=== PATIENT | male | born 2000 | race African-American/Black ===

== ENCOUNTER 2025-01-20 16:25 | Inpatient (IN) | payer OTHER, SELFPAY ==
--- NOTE | ~2025-01-20 | XR_ITS ---
CLINICAL HISTORY: reports constipation since 5 11 1 view abdomen Comparison: None Findings: Nonobstructive bowel gas pattern. No excessive colonic stool. No abnormal calcifications. No acute fractures. IMPRESSION: Nonobstructive bowel gas pattern. This document has been electronically signed by: Regi Bañuelos MD on 02/11/2025 18:57:07
[2025-01-20 16:36] VITALS: PULSE 115; O2SAT 99
[2025-01-20 16:37] VITALS: BMI 38.9
[2025-01-20 17:32] LABS: MANUAL DIFF FLAG NO
--- NOTE | 2025-01-20 17:34 | PC.NURSE ---
med rec: per pt he has been compliant with his medication. he states that he took his medications last night. pt states that the recent DC documentation from [facility] is his up-to-date med list. meds checked with pharmacy fill records and [facility] DC paperwork
[2025-01-20 17:40] LABS: Basophils Percent Auto 0.3 % (0-2); Eosinophils Percent Auto 0.1 % (0-4); Hematocrit 47.6 % (42.0-52.0); Hemoglobin 16.2 g/dl (14.0-18.0); Imm Gran Abs Auto 0.02 X10*3/uL (0.00-0.03); Imm Gran Pct Auto 0.3 % (0.0-0.4); Lymphocytes Absolute Auto 1.9 X10*3/uL (1.2-4.9); Lymphocytes Percent Auto 26.4 % (20-40); Mean Corpuscular Hemoglobin 30.4 pg (27.0-33.0); Mean Corpuscular Volume 89.3 fL (80.0-98.0); Mean Platelet Volume 11.5 fL (9.4-12.4); Monocytes Absolute Auto 0.4 X10*3/uL (0.1-1.2); Monocytes Percent Auto 6.1 % (2-11); Neutrophils Absolute Auto 4.8 x10*3/uL (2.0-8.3); Neutrophils Percent Auto 66.8 % (45-73); Platelet Count 213 X10*3/uL (160-400); Red Blood Count 5.33 X10*6/uL (4.60-5.80); White Blood Count 7.2 X10*3/uL (4.8-10.8)
--- NOTE | 2025-01-20 17:47 | ED_ITS ---
HPI - Psych General Chief Complaint: Psychiatric Symptoms Stated Complaint: sectioned, schizophrenia, tried to jump out of car Time Seen by Provider: 01/20/25 16:48 Source: patient and EMS Mode of arrival: EMS Limitations: no limitations History of Present Illness ED Provider: ANIA CAMARA PA-C HPI Narrative: 24-year-old male with pmhx significant for schizophrenia presents to the ED today via EMS from home on a section 12. Per patient, he is insure why he was brought to the ED today. He states he currently lives with his parents. States they think I'm crazy . He denies SI/HI. Denies AH/VH/TH. He reports compliance with all home medications. He denies any physical complaints at this time. According to section, patient attempted to jump out of a moving vehicle yesterday. Parents state patient has been paranoid, delusional. It appears he was just discharged from a mental health facility approximately 1 week ago. Related Data Home Medications ?Medication ?Instructions ?Recorded ?Confirmed aripiprazole 30 mg tablet 30 mg PO BEDTIME psychosis 01/20/25 01/20/25 clonidine HCl 0.2 mg tablet 0.2 mg PO BEDTIME 01/20/25 01/20/25 haloperidol 10 mg tablet 10 mg PO BEDTIME 01/20/25 01/20/25 sumatriptan succinate 100 mg tablet 100 mg PO DAILY PRN migraine 01/20/25 01/20/25 topiramate 200 mg tablet 200 mg PO BEDTIME 01/20/25 01/20/25 trazodone 50 mg tablet 50 mg PO BEDTIME PRN insomnia 01/20/25 01/20/25 Allergies Allergy/AdvReac Type Severity Reaction Status Date / Time paliperidone [From Invega] Allergy Itching Verified 01/20/25 16:47 Review of Systems 2 Review of Systems: Yes all other systems are reviewed and are negative PMFSH Past Medical History Attestation statement: The following information was validated with the patient. Source: old records reviewed and nursing notes reviewed Social History Social History Household Members: Family Housing: Apartment Do you presently have visiting nurse or other home services: No Patient Tobacco Use Status: Never used Tobacco Smoked in Last 30 Days: No e-Cigarette/Vaping Use: Never Used Patient Interested in Nicotine Replacement: No Patient Given Instructions on How to Stop Smoking: No Second Hand Smoke Exposure: No Use of substances other than those prescribed or required for medical reasons: No Currently Displaying Signs/Symptoms of Drug Intoxication Withdrawal: No Have you been hit, kicked, punched, or otherwise hurt by someone within the past year? If so, by whom?: No Do you feel safe in your current relationship?: No Current Relationship Is there a partner from a previous relationship who is making you feel unsafe now?: No Are you made to feel afraid or neglected: No Tenriism Healthcare Practices: Nondenominational Advance Directives: No Advance Directives Information Provided: No Do you have thoughts of harming others: None Do you have a plan to hurt others: No Plan Recently lost weight without trying: No How much weight loss: Not applicable Eating poorly because of decreased appetite: No Nutrition screen score: 0 Nutrition Risks: No Nutritional Risk Poor oral hygiene: No Physical Exam 2 Vital Signs: Vital Signs: Last Vital Signs Temp 98.3 F 01/22/25 08:00 Pulse 90 01/22/25 08:00 Resp 18 01/22/25 08:00 BP 134/66 01/22/25 08:00 Pulse Ox 98 01/22/25 08:00 O2 Del Method Room Air 01/22/25 08:00 BMI result Body Mass Index 38.9 General: well appearing, in no acute distress. Skin: Warm, dry, intact. No rashes or lesions. Head: Normocephalic, atraumatic. EENT: Hearing is intact b/l. Conjunctiva clear. PERRLA. EOM intact. Moist mucous membranes.? Neck: Supple without LAD Cardiac: Chest wall symmetric. RRR Lungs: Normal respiratory effort without accessory muscle use. CTA bilaterally Abdomen: Soft, non-tender, non-distended. No rebound tenderness or guarding Back: No midline spinous or paraspinal tenderness. No step off deformity. Ext: Upper and lower extremities atraumatic, without tenderness, deformity, swelling or erythema Neuro: AOx3. Normal speech. CN 2-12 grossly intact. Ambulating with steady gait. Course Course Course Narrative: 1838 -- I was called to behavioral pod as patient was noted to be agitated and combative. On my arrival, patient calm. States he is frustrated as he was not given any pants that fit him. Requesting larger pants. He is not combative. He is agreeable to blood work. CBC without leukocytosis or left shift. No anemia. H&H stable. Chemistry without acute electrolyte abnormality requiring intervention. No GRECIA. Liver function WNL. Lipase WNL. Salicylates, acetaminophen and ethanol undetectable. Urinalysis and UDS pending. CARE consult pending. Reevaluation(s) Reevaluation #1: Time: 07:21 Date: 01/21/25 Provider: Jen Venegas DO Patient in physician observation for psychiatric evaluation.? No acute events reported overnight. No current complaints. VS stable.? pending CARE team evaluation. Will continue to monitor. Reevaluation #2: Time: 18:44 Date: 01/21/25 Provider: Jen Venegas DO Physician observation ended at 1844. Patient to be admitted as inpatient to psychiatry. Medications Administered Generic Name Dose Route Start Last Admin Trade Name Freq PRN Reason Stop Dose Admin Aripiprazole 30 mg 01/20/25 21:00 01/21/25 20:16 Aripiprazole 30 Mg Tablet PO 30 mg BEDTIME EMILY Administration Clonidine HCl 0.2 mg 01/20/25 21:00 01/21/25 20:16 Clonidine Hcl 0.2 Mg Tablet PO 0.2 mg BEDTIME EMILY Administration Protocol Haloperidol 10 mg 01/22/25 15:00 01/22/25 14:20 Haloperidol 5 Mg Tablet PO 10 mg TID EMILY Administration Hydroxyzine HCl 25 mg 01/21/25 17:56 01/22/25 12:02 Hydroxyzine Hcl 25 Mg Tablet PO 25 mg Q6H PRN Administration mild anxiety Topiramate 200 mg 01/20/25 21:00 01/21/25 20:16 Topiramate 100 Mg Tablet PO 200 mg BEDTIME EMILY Administration Trazodone HCl 50 mg 01/20/25 17:44 01/20/25 21:36 Trazodone Hcl 50 Mg Tablet PO 50 mg BEDTIME PRN Administration insomnia Discontinued Medications Generic Name Dose Route Start Last Admin Trade Name Freq PRN Reason Stop Dose Admin Haloperidol 10 mg 01/20/25 21:00 01/21/25 20:16 Haloperidol 5 Mg Tablet PO 10 mg BEDTIME EMILY Administration Medical Decision Making Medical Decision Making MDM Narrative: 24-year-old male with pmhx significant for schizophrenia presents to the ED today via EMS from home on a section 12. vital signs stable. Differential diagnosis includes anemia, electrolyte abnormality, mood disorder, anxiety, depression, SI, polysubstance abuse Presentation not consistent with acute organic causes to include delirium, dementia or drug induced disorders (acute ingestions or withdrawal; no evidence of toxidrome).? Will consult care team to evaluate the patient. Will also obtain labs for medical clearance. Plan: labs, EKG, ASA/APAP levels, ETOH level, UDS, care team consultation, reassessment Differential Diagnosis Differential Diagnoses: The differential diagnosis associated with the presentation includes As above Admission/Observation Not indicated Lab Data MDM Lab Attestation statement: I reviewed the patient's lab results. As above 01/20/25 17:28 01/22/25 07:39 Labs: Lab Results 01/20/25 01/21/25 Range/Units 17:28 11:16 WBC 7.2 (4.8-10.8) X10*3/uL RBC 5.33 (4.60-5.80) X10*6/uL Hgb 16.2 (14.0-18.0) g/dl Hct 47.6 (42.0-52.0) % MCV 89.3 (80.0-98.0) fL MCH 30.4 (27.0-33.0) pg MCHC 34.0 (31.0-36.0) g/dl RDW 14.0 (11.0-16.0) % Plt Count 213 (160-400) X10*3/uL MPV 11.5 (9.4-12.4) fL Immature Gran % (Auto) 0.3 (0.0-0.4) % Neut % (Auto) 66.8 (45-73) % Lymph % (Auto) 26.4 (20-40) % [place] % (Auto) 6.1 (2-11) % Eos % (Auto) 0.1 (0-4) % Baso % (Auto) 0.3 (0-2) % Lymph # (Auto) 1.9 (1.2-4.9) X10*3/uL [place] # (Auto) 0.4 (0.1-1.2) X10*3/uL Eos # (Auto) 0.0 (0.0-0.4) X10*3/uL Baso # (Auto) 0.0 (0.0-0.2) X10*3/uL Abs Immat Gran (auto) 0.02 (0.00-0.03) X10*3/uL Absolute Neuts (auto) 4.8 (2.0-8.3) x10*3/uL Absolute Nucleated RBC 0.000 (0.0-0.012) X10*3/uL Nucleated RBC % (auto) 0.0 (0.0-0.2) /100WBC Sodium 140 (135-145) mmol/L Potassium 4.0 (3.3-5.1) mmol/L Chloride 113 H (96-108) mmol/L Carbon Dioxide 19 L (22-29) mmol/L Anion Gap 12 (12-20) BUN 10 (9-16) mg/dL Creatinine 1.03 (0.5-1.4) mg/dL Estim Creat Clear Calc 170.7 Estimated GFR > 60 Random Glucose 100 (60-115) mg/dL Calcium 9.5 (8.4-10.2) mg/dL Magnesium 1.9 (1.6-2.6) mg/dL Total Bilirubin 0.3 (0.0-1.0) mg/dL AST 18 (5-37) U/L ALT 44 H (0-40) U/L Alkaline Phosphatase 86 (39-117) U/L Total Protein 7.5 (6.5-8.0) g/dL Albumin 4.5 (3.5-5.0) g/dL Lipase 28 (8-78) U/L Urine Color Yellow Urine Appearance Clear Urine pH 6.0 (5.0-9.0) Ur Specific [place] 1.015 (1.005-1.025) Urine Protein Negative (Neg-Trace) mg/dL Urine Glucose (UA) Negative (Negative) mg/dL Urine Ketones Negative (Negative) mg/dL Urine Blood Negative (Negative) Urine Nitrite Negative (Negative) Ur Leukocyte Esterase Negative (Negative) Salicylates < 5.0 L (15-30) mg/dL Urine Opiates Screen Not Detected (Not Detect) Ur Buprenorphine Scrn Not Detected (Not Detect) ng/mL Ur Oxycodone Screen Not Detected (Not Detect) ng/mL Urine Methadone Screen Not Detected (Not Detect) ng/mL Urine Fentanyl Screen Not Detected (Not Detect) Acetaminophen < 3 (<30) mcg/mL Ur Barbiturates Screen Not Detected (Not Detect) Ur Phencyclidine Scrn Not Detected (Not Detect) Ur Amphetamines Screen Not Detected (Not Detect) U Benzodiazepines Scrn Not Detected (Not Detect) Urine Cocaine Screen Not Detected (Not Detect) U Marijuana (THC) Screen Not Detected (Not Detect) Ethyl Alcohol < 10 mg/dL Independent Historian Clinical information obtained from an independent historian. History obtained from or confirmed by: EMS Social Determinants Patient?s care significantly limited by Social Determinants of Health including: Other Social Determinant of Health Critical Care Time Critical Care Time Critical Care Time: No Discharge Plan Discharge Clinical Impression: Acute psychosis Patient Disposition: Admitted As Inpatient Discharge Date/Time: 01/21/25 18:44
[2025-01-20 17:52] LABS: Acetaminophen LAB < 3 mcg/mL (<30); Salicylate < 5.0 mg/dL (15-30)
[2025-01-20 17:59] LABS: Alanine Aminotransferase 44 U/L (0-40); Albumin Level 4.5 g/dL (3.5-5.0); Alkaline Phosphatase 86 U/L (39-117); Anion Gap 12 (12-20); Aspartate Amino Transferase 18 U/L (5-37); Bilirubin Total 0.3 mg/dL (0.0-1.0); Blood Urea Nitrogen 10 mg/dL (9-16); Calcium 9.5 mg/dL (8.4-10.2); Carbon Dioxide 19 mmol/L (22-29); Chloride 113 mmol/L (96-108); Creatinine Clr Calc Pharmacy 170.7; Estimated Glomerular Filt Rate > 60; Ethanol < 10 mg/dL; Glucose Random 100 mg/dL (60-115); Lipase 28 U/L (8-78); Magnesium 1.9 mg/dL (1.6-2.6); Sodium 140 mmol/L (135-145); Total Protein 7.5 g/dL (6.5-8.0)
--- NOTE | 2025-01-20 19:26 | PC.NURSE ---
patient appears to remain at rest able to let wants and needs be known t/w provided him with some ice water, advised him regarding access to spiritual care and asked him when hed like his medications delivered, very pleasant.
[2025-01-20 19:43] VITALS: BP 121/57; PULSE 65; RESP 16; TEMP 36.4; O2SAT 100
--- NOTE | 2025-01-20 21:05 | MHC.CARE ---
Patient was evaluated in the community by Dolly and found appropriate for IPLOC. [facility] reported that they will send over his evaluation once completed and a copy will be placed in his chart at that time. Information will be passed to RN in pod and MD at this time.
[2025-01-20 21:35] VITALS: BP 121/57
[2025-01-20] MEDS: cloNIDine HCL 0.2 MG TABLET PO (21:35)
[2025-01-20] MEDS: ARIPiprazole 30 MG TABLET PO (21:35)
[2025-01-20] MEDS: Topiramate 100 MG TABLET 200 MG PO (21:36)
[2025-01-20] MEDS: HaloperidoL 5 MG TABLET 10 MG PO (21:36)
[2025-01-20] MEDS: traZODone HCL 50 MG TABLET PO (21:36)
--- NOTE | 2025-01-21 | ECG_ITS ---
Test Reason : R/O PROLONGED QT Blood Pressure : */* mmHG Vent. Rate : 59 BPM Atrial Rate : 59 BPM P-R Int : 208 ms QRS Dur : 100 ms QT Int : 418 ms P-R-T Axes : 37 30 15 degrees QTcB Int : 413 ms Sinus bradycardia Otherwise normal ECG No previous ECGs available Referred By: Paige Gonzales Electronically Signed By: ISA OATES
--- NOTE | 2025-01-21 08:37 | MHC.EDTECH ---
Patient agreeable to providing urine sample. This tech missed patient as he was going to the restroom, and did not provide a urine cup. Patient aware to inform staff next time he needs to use the bathroom.
--- NOTE | 2025-01-21 09:37 | PC.NURSE ---
Per patient okay to give updates to his mother, mother called stating patient is in the proces of being placed on injectable abilify and his MD will call to discuss placing patient on the injectable
[2025-01-21 10:42] VITALS: BP 110/61; PULSE 58; RESP 16; TEMP 36.2; O2SAT 99
--- NOTE | 2025-01-21 11:17 | MHC.EDTECH ---
This tech responded to patient yelling at bathroom door for assistance. Patient in hallway of bathrooms with urine cup. This tech asked patient to bring it around to the nurses station. Patient handed this tech urine up and stated you couldn't fucking help me. This tech thanked patient for urine and did not acknowledge patient swearing. Patient returned to room.
--- NOTE | 2025-01-21 11:25 | PC.NURSE ---
Patient standing in doorway of room yelling that he liked previous staff better and that staff is here to help him. Dayna stating that she asked patient to bring his urine sample out of the bathroom and he became upset
[2025-01-21 11:41] LABS: Amphetamine Screen Urine Not Detected (Not Detect); Barbiturates, Urine Not Detected (Not Detect); Benzodiazepines Screen Urine Not Detected (Not Detect); Buprenorphine Scr Not Detected (Not Detect); Cannabinoid Screen Urine Not Detected (Not Detect); Cocaine Screen Urine Not Detected (Not Detect); Fentanyl, urine Not Detected (Not Detect); Methadone Screen, Urine Not Detected (Not Detect); Opiate Screen Urine Not Detected (Not Detect); Oxycodone Screen Urine Not Detected (Not Detect); Phencyclidine Screen Urine Not Detected (Not Detect)
[2025-01-21 11:45] LABS: Appearance Urine Clear; Color Urine Yellow; Glucose Urine UA Negative (Negative); Leukocyte Esterase Urine Negative (Negative); Nitrite Urine Negative (Negative); Specific Gravity - Urine 1.015 (1.005-1.025); Urine Blood Negative (Negative); Urine Ketones Negative (Negative); Urine Protein Negative (Neg-Trace)
--- NOTE | 2025-01-21 18:17 | PC.NURSE ---
Report given to m5
--- NOTE | 2025-01-21 18:44 | PC.NURSE ---
verbal report given to RN on M5
[2025-01-21 19:09] VITALS: BMI 42.0
[2025-01-21 19:11] VITALS: BP 156/72; PULSE 89; TEMP 36.8; O2SAT 99
[2025-01-21 20:16] VITALS: BP 156/72
[2025-01-21] MEDS: HaloperidoL 5 MG TABLET 10 MG PO (20:16)
[2025-01-21] MEDS: ARIPiprazole 30 MG TABLET PO (20:16)
[2025-01-21] MEDS: cloNIDine HCL 0.2 MG TABLET PO (20:16)
[2025-01-21] MEDS: Topiramate 100 MG TABLET 200 MG PO (20:16)
--- NOTE | 2025-01-22 06:19 | PC.ADMIT ---
Porter Starnge is a 24years old male with pmhx. significant for schizophrenia. Pt presented to ED via EMS from home on sec. 12 but signed CV upon arrival to the unit. According to section, pt attempted to jump out of moving vehicle yesterday. Parents state pt has been paranoid and delusional. it appears he was just discharged from a mental health facility aprox. 1 week ago. pt arrived on the unit with admitting diagnosis for Psychosis. pt is alert and oriented x3. pt is calm, pleasant, easily engages, complaint with all admission process, denied anxiety and depression, also denied SI/HI/AVH, contracted for safety on the unit, ambulates independently and attends to own ADL's. pt denied pain and has been medication compliant. pt's belongings inventoried/secured. pt upset when told he could not use his phone on the unit, stating I need mine because I use it for meditation and also for [employer]ybeterian purposes . Pt was advised if the need be, the unit have iPads available that he can use once approved by staff. pt has been in behavioral control all night, no issues thus far, pt on 15mins safety check.
[2025-01-22 08:00] VITALS: BP 134/66; PULSE 90; RESP 18; TEMP 36.8; O2SAT 98
[2025-01-22 08:23] LABS: Alanine Aminotransferase 44 U/L (0-40); Albumin Level 4.6 g/dL (3.5-5.0); Alkaline Phosphatase 91 U/L (39-117); Anion Gap 12 (12-20); Aspartate Amino Transferase 26 U/L (5-37); Bilirubin Total 0.9 mg/dL (0.0-1.0); Blood Urea Nitrogen 13 mg/dL (9-16); Calcium 9.7 mg/dL (8.4-10.2); Carbon Dioxide 20 mmol/L (22-29); Chloride 113 mmol/L (96-108); Cholesterol 164 mg/dL (<200); Creatinine Clr Calc Pharmacy 162.1; Estimated Glomerular Filt Rate > 60; Glucose Random 90 mg/dL (60-115); HDL Cholesterol 46 mg/dL (>40); LDL Cholesterol Calculated 100 mg/dL (<100); Potassium 3.9 mmol/L (3.3-5.1); Sodium 141 mmol/L (135-145); Total Protein 7.6 g/dL (6.5-8.0); Triglycerides 90 mg/dL (<150)
[2025-01-22 08:44] LABS: Estimated Average Glucose 100 mg/dL; Hemoglobin A1C 137.4562 umol/L; Hemoglobin A1c % 5.1 % (<6.0); Total Hemoglobin (HGBA1C) 4299.3797 umol/L
--- NOTE | 2025-01-22 09:33 | P.HPPS_ITS ---
HPI Date of Service: 01/22/25 Chief Complaint: Pyschosis Sources of Information: patient interviewed, chart reviewed and crisis/core team assessment reviewed HPI Subjective Notes: Nguyen Warning, Conditional Voluntary and 3 Day Narrative: Patient is a 24-year-old male with history of schizophrenia, off Invega Sustenna for about 3 months who presents with i.e. compensated psychotic symptoms and aggression. Patient is a poor historian. He initially says he does not know why his mother wanted him to come to the hospital. He quickly became angry at creative services writer, starting to yell at creative services writer, intense and starting to posture, including as creative services writer walks away down the goodman I wanted different doctor... I do not trust you and that that creative services writer is a shit doctor. Busgirl needed to terminate conversation and get away from patient for safety. Earlier he got angry at a nurse and also swore at her. Mother provided some collateral to staff. Apparently patient has been stable since his hospitalization when he was 16 years old, benefitting from Invega Sustenna; he attended [employer] and graduated. It is not clear if Invega Sustenna stopped working or he refused to take it but he has been decompensating over the past 3 months and has had to other recent hospitalizations. Mother says that he is scaring her and the neighbors;,paranoid and delusional frequently self dialoguing. Prior to coming to the hospital he tried to jump out of moving car. Past Psychiatric History: First hospitalized around 16 years old and benefited from Invega Sustenna for the next 7 years, not requiring any hospitalizations Recently 2 psychiatric hospitalizations Medical Evaluation Reviewed: Yes [facility] Medical History (Updated 01/23/25 @ 17:25 by Dion Meléndez MD) Schizophrenia Family History: Deferred Social History: Lives at home with his family, mother On Invega Sustenna, graduated from [employer]; functional and integrated in the community Substance History: Denies Trauma History: Deferred Diagnostics Vital Signs (24Hr): Vital Signs - 24 hr 01/21/25 10:42 01/21/25 19:11 01/21/25 20:16 Temperature 97.2 F 98.2 F Pulse Rate 58 89 Respiratory Rate 16 Blood Pressure 110/61 156/72 H 156/72 H Pulse Oximetry 99 99 Oxygen Delivery Method Room Air Room Air 01/22/25 08:00 Temperature 98.3 F Pulse Rate 90 Respiratory Rate 18 Blood Pressure 134/66 Pulse Oximetry 98 Oxygen Delivery Method Room Air BMI result Body Mass Index 42.0 Labs 01/20/25 17:28 01/22/25 07:39 Labs: Laboratory Results - last 48 hr 01/20/25 01/21/25 01/22/25 17:28 11:16 07:39 WBC 7.2 RBC 5.33 Hgb 16.2 Hct 47.6 MCV 89.3 MCH 30.4 MCHC 34.0 RDW 14.0 Plt Count 213 MPV 11.5 Immature Gran % (Auto) 0.3 Neut % (Auto) 66.8 Lymph % (Auto) 26.4 [place] % (Auto) 6.1 Eos % (Auto) 0.1 Baso % (Auto) 0.3 Lymph # (Auto) 1.9 [place] # (Auto) 0.4 Eos # (Auto) 0.0 Baso # (Auto) 0.0 Abs Immat Gran (auto) 0.02 Absolute Neuts (auto) 4.8 Absolute Nucleated RBC 0.000 Nucleated RBC % (auto) 0.0 Sodium 140 141 Potassium 4.0 3.9 Chloride 113 H 113 H Carbon Dioxide 19 L 20 L Anion Gap 12 12 BUN 10 13 Creatinine 1.03 1.13 Estim Creat Clear Calc 170.7 162.1 Estimated GFR > 60 > 60 Random Glucose 100 90 Estimat Average Glucose 100 Hemoglobin A1c % 5.1 Calcium 9.5 9.7 Magnesium 1.9 Total Bilirubin 0.3 0.9 AST 18 26 ALT 44 H 44 H Alkaline Phosphatase 86 91 Total Protein 7.5 7.6 Albumin 4.5 4.6 Triglycerides 90 Cholesterol 164 LDL Cholesterol, Calc 100 H HDL Cholesterol 46 Lipase 28 Urine Color Yellow Urine Appearance Clear Urine pH 6.0 Ur Specific Chad[place] 1.015 Urine Protein Negative Urine Glucose (UA) Negative Urine Ketones Negative Urine Blood Negative Urine Nitrite Negative Ur Leukocyte Esterase Negative Salicylates < 5.0 L Urine Opiates Screen Not Detected Ur Buprenorphine Scrn Not Detected Ur Oxycodone Screen Not Detected Urine Methadone Screen Not Detected Urine Fentanyl Screen Not Detected Acetaminophen < 3 Ur Barbiturates Screen Not Detected Ur Phencyclidine Scrn Not Detected Ur Amphetamines Screen Not Detected U Benzodiazepines Scrn Not Detected Urine Cocaine Screen Not Detected U Marijuana (THC) Screen Not Detected Ethyl Alcohol < 10 Meds/Allergies Meds Home Medications ?Medication ?Instructions ?Recorded ?Confirmed ?Type aripiprazole 30 mg tablet 30 mg PO BEDTIME psychosis 01/20/25 01/20/25 History clonidine HCl 0.2 mg tablet 0.2 mg PO BEDTIME 01/20/25 01/20/25 History haloperidol 10 mg tablet 10 mg PO BEDTIME 01/20/25 01/20/25 History sumatriptan succinate 100 mg tablet 100 mg PO DAILY PRN migraine 01/20/25 01/20/25 History topiramate 200 mg tablet 200 mg PO BEDTIME 01/20/25 01/20/25 History trazodone 50 mg tablet 50 mg PO BEDTIME PRN insomnia 01/20/25 01/20/25 History Allergies Allergies Allergy/AdvReac Type Severity Reaction Status Date / Time paliperidone [From Invega] Allergy Itching Verified 01/20/25 16:47 Mental Status Exam Mental Status Exam Narrative: Pt is alert and oriented; behavior is can sometimes be friendly but quickly gets irritable, agitated and threatening; patient is not in distress; dressed in casual attire with adequate hygiene; mood is described as good affect intense; eye contact intense; Speech is normal rate, volume and prosody and not pressured; psychomotor agitation present; thought process is goal directed; Thought content is on paranoid ideations; ; denies any SI/HI. Denies AVH however patient appears to be internally preoccupied. Patients insight and judgment impaired. Assessment & Plan Assessment & Plan (1) Schizophrenia: Status: Acute Code(s): F20.9 - Schizophrenia, unspecified Plan Patient is a 24-year-old male with history of schizophrenia, off Invega Sustenna for about 3 months who presents with i.e. compensated psychotic symptoms and aggression. Patient is a poor historian. He initially says he does not know why his mother wanted him to come to the hospital. He quickly became angry at creative services writer, starting to yell at creative services writer, intense and starting to posture, including as creative services writer walks away down the goodman I wanted different doctor... I do not trust you and that that creative services writer is a shit doctor. Busgirl needed to terminate conversation and get away from patient for safety. Earlier he got angry at a nurse and also swore at her. Mother provided some collateral to staff. Apparently patient has been stable since his hospitalization when he was 16 years old, benefitting from Invega Sustenna; he attended [employer] and graduated. It is not clear if Lita Ponce stopped working or he refused to take it but he has been decompensating over the past 3 months and has had to other recent hospitalizations. Mother says that he is scaring her and the neighbors;,paranoid and delusional frequently self dialoguing. Prior to coming to the hospital he tried to jump out of moving car. Formulation/clinical reasoning: Decompensated schizophrenia; either patient stopped taking Lita Ponce or it stopped working. At the mentioned of the word Invega patient became extremely angry. However he was started on other medications (at other admission? ) which she is amenable to taking, including Abilify and Haldol so will continue these; creative services writer will increase Haldol to 10 mg t.i.d., up from b.i.d.. -will give patient single room for safety of peers, since patient easily provoked Plan: CV Q 15 minute checks -will give patient single room since easily provoked Continue?Abilify 30 mg q.h.s. Continue Clonidine 0.2 mg q.h.s. Continue Topamax 200 mg q.h.s. Increase to Haldol 10 mg t.i.d., up from b.i.d. Patient educated on: diagnosis and medication risk/benefits Informed Consent: understands, does not understand and further education needed Reason for continued inpatient stay Substantial Risk for: inability to function Statement Statement: I have reviewed the history and physical and performed a pertinent examination on my patient. No changes have occurred unless specified. If the History and Physical was not performed prior to admission, the Hospitalist's service will be consulted for completing the admission physical. Time Spent With Patient Time: Total time managing care of this patient today ____ minutes.
[2025-01-22] MEDS: hydrOXYzine HCL 25 MG TABLET PO (12:02)
[2025-01-22] MEDS: HaloperidoL 5 MG TABLET 10 MG PO ×3 (12:04→20:29)
[2025-01-22 19:56] VITALS: BP 148/72; PULSE 97; RESP 15; TEMP 36.6; O2SAT 99
[2025-01-22] MEDS: ARIPiprazole 30 MG TABLET PO (20:29)
[2025-01-22] MEDS: cloNIDine HCL 0.2 MG TABLET PO (20:29)
[2025-01-22] MEDS: traZODone HCL 50 MG TABLET PO (20:29)
[2025-01-22] MEDS: Topiramate 100 MG TABLET 200 MG PO (20:29)
[2025-01-23] MEDS: HaloperidoL 5 MG TABLET 10 MG PO ×3 (08:26→20:50)
[2025-01-23 08:30] VITALS: BP 105/57; PULSE 70; RESP 18; TEMP 36.5; O2SAT 100
--- NOTE | 2025-01-23 17:29 | HO.PSYCHPN ---
Subjective Subjective Date of Service: 01/23/25 Reason For Visit: Pyschosis Interim History: Met with patient; discussed with team Patient seems to be more calm today. Guarded on approach and little to say to web content writer other than that he is doing all right and has no complaints or requests and says nothing is on his mind. Television Announcer left it there so as not to accidentally provoke. Patient taking prescribed medication. To nursing staff patient said I was tormented yesterday... Mental Status Exam Mental Status Exam Narrative: Pt is alert and oriented; behavior is more calm; so far no threatening behaviors; patient is not in distress; dressed in casual attire with adequate hygiene; mood is described as all right affect a little more calm; eye contact less intense; Speech is normal rate, volume and prosody and not pressured; seems to be less psychomotor agitation; thought process is goal directed; Thought content is guarded; denies any SI/HI. Denies AVH however patient appears to be internally preoccupied. Patients insight and judgment impaired. Diagnostics Vital Signs (24Hr): Vital Signs - 24 hr 01/22/25 19:56 01/23/25 08:30 Temperature 98 F 97.7 F Pulse Rate 97 70 Respiratory Rate 15 18 Blood Pressure 148/72 H 105/57 L Pulse Oximetry 99 100 Oxygen Delivery Method Room Air BMI result Body Mass Index 42.0 Labs 01/20/25 17:28 01/22/25 07:39 Labs: Laboratory Results - last 48 hr 01/22/25 07:39 Sodium 141 Potassium 3.9 Chloride 113 H Carbon Dioxide 20 L Anion Gap 12 BUN 13 Creatinine 1.13 Estim Creat Clear Calc 162.1 Estimated GFR > 60 Random Glucose 90 Estimat Average Glucose 100 Hemoglobin A1c % 5.1 Calcium 9.7 Total Bilirubin 0.9 AST 26 ALT 44 H Alkaline Phosphatase 91 Total Protein 7.6 Albumin 4.6 Triglycerides 90 Cholesterol 164 LDL Cholesterol, Calc 100 H HDL Cholesterol 46 Medications Medications Current Medications Acetaminophen (Acetaminophen 325 Mg Tablet) 650 mg PO Q6H PRN PRN Reason: Headache/Pain, Scale 1-10 Al Hydroxide/Mg Hydroxide (Magnesium Hydrox/Alum Hydrox 30 Ml Oral.Susp) 30 ml PO Q6H PRN PRN Reason: Heartburn/Nausea Aripiprazole (Aripiprazole 30 Mg Tablet) 30 mg PO BEDTIME EMILY Last Admin: 01/22/25 20:29 Dose: 30 mg Clonidine HCl (Clonidine Hcl 0.2 Mg Tablet) 0.2 mg PO BEDTIME EMILY; Protocol Last Admin: 01/22/25 20: Dose: 0.2 mg Haloperidol (Haloperidol 5 Mg Tablet) 10 mg PO TID EMILY Last Admin: 01/23/25 14:08 Dose: 10 mg Hydroxyzine HCl (Hydroxyzine Hcl 25 Mg Tablet) 25 mg PO Q6H PRN PRN Reason: mild anxiety Last Admin: 01/22/25 12:02 Dose: 25 mg Magnesium Hydroxide (Milk Of Magnesia 30 Ml Oral.Susp) 30 ml PO DAILY PRN PRN Reason: Constipation Nicotine (Nicotine 21 Mg Patch.Td24) 21 mg TRANSDERMA DAILY PRN PRN Reason: smoking cessation Olanzapine (Olanzapine 10 Mg Tablet) 10 mg PO TID PRN PRN Reason: agitation Sumatriptan Succinate (Sumatriptan Succinate 100 Mg Tablet) 100 mg PO DAILY PRN PRN Reason: migraine Topiramate (Topiramate 100 Mg Tablet) 200 mg PO BEDTIME EMILY Last Admin: 01/22/25 20:29 Dose: 200 mg Trazodone HCl (Trazodone Hcl 50 Mg Tablet) 50 mg PO BEDTIME PRN PRN Reason: insomnia Last Admin: 01/22/25 20:29 Dose: 50 mg Trazodone HCl (Trazodone Hcl 50 Mg Tablet) 50 mg PO BEDTIME MRX1 PRN PRN Reason: Insomnia Allergies Allergies Allergy/AdvReac Type Severity Reaction Status Date / Time paliperidone [From Invega] Allergy Itching Verified 01/20/25 16:47 Assessment & Plan Assessment & Plan (1) Schizophrenia: Status: Acute Code(s): F20.9 - Schizophrenia, unspecified Plan Patient is a 24-year-old male with history of schizophrenia, off Invega Sustenna for about 3 months who presents with i.e. compensated psychotic symptoms and aggression. Patient is a poor historian. He initially says he does not know why his mother wanted him to come to the hospital. He quickly became angry at web content writer, starting to yell at web content writer, intense and starting to posture, including as web content writer walks away down the goodman I wanted different doctor... I do not trust you and that that web content writer is a shit doctor. Television Announcer needed to terminate conversation and get away from patient for safety. Earlier he got angry at a nurse and also swore at her. Mother provided some collateral to staff. Apparently patient has been stable since his hospitalization when he was 16 years old, benefitting from Lita Ponce; he attended [employer] school and graduated. It is not clear if Lita Ponce stopped working or he refused to take it but he has been decompensating over the past 3 months and has had to other recent hospitalizations. Mother says that he is scaring her and the neighbors;,paranoid and delusional frequently self dialoguing. Prior to coming to the hospital he tried to jump out of moving car. Formulation/clinical reasoning: Decompensated schizophrenia; either patient stopped taking Invega Rosario or it stopped working. At the mentioned of the word Invega patient became extremely angry. However he was started on other medications (at other admission? ) which she is amenable to taking, including Abilify and Haldol so will continue these; web content writer will increase Haldol to 10 mg t.i.d., up from b.i.d.. -will give patient single room for safety of peers, since patient easily provoked Hospital course: 01/23 Patient seems to be more calm today. Guarded on approach and little to say to web content writer other than that he is doing all right and has no complaints or requests and says nothing is on his mind. Television Announcer left it there so as not to accidentally provoke. Patient taking prescribed medication. To nursing staff patient said I was tormented yesterday... Plan: CV Q 15 minute checks -will give patient single room since easily provoked Continue?Abilify 30 mg q.h.s. Continue Clonidine 0.2 mg q.h.s. Continue Topamax 200 mg q.h.s. Increase to Haldol 10 mg t.i.d., up from b.i.d. Patient educated on: diagnosis Informed Consent: understands, does not understand and further education needed Reason for continued inpatient stay Substantial Risk for: rapid decompensation Time Spent With Patient Time: Total time managing care of this patient today ____ minutes.
[2025-01-23 19:46] VITALS: BP 138/70; PULSE 105; RESP 15; TEMP 36.4; O2SAT 98
[2025-01-23] MEDS: Topiramate 100 MG TABLET 200 MG PO (20:50)
[2025-01-23] MEDS: traZODone HCL 50 MG TABLET PO (20:50)
[2025-01-23] MEDS: ARIPiprazole 30 MG TABLET PO (20:51)
[2025-01-23] MEDS: cloNIDine HCL 0.2 MG TABLET PO (20:51)
[2025-01-24 07:56] VITALS: BP 130/74; PULSE 65; RESP 18; TEMP 36.5; O2SAT 97
[2025-01-24] MEDS: HaloperidoL 5 MG TABLET 10 MG PO ×3 (08:40→20:55)
--- NOTE | 2025-01-24 10:16 | P.PNPSI_ITS ---
Subjective Subjective Date of Service: 01/24/25 Reason For Visit: Pyschosis Subjective Notes: Conditional Voluntary Healthcare Proxy: No Guardianship: No Medical Problems Affecting Mental Status: No Interim History: Pt is interactive with tw, reports he is feeling improved, asks that I pray for him and reports his med regime is tolerated and currently helpful. He spoke of housing, talking of living in an area where he does not feel safe. Reports his OP team is helping him to find other options, he would prefer a home in [place] or [place]. Per team OP team has connected and report he is far from baseline. At baseline he in hinduism and has no evidence of paranoia. Medication Compliance: Yes Side effects from medications: No Attending Groups: Intermittent Review of Systems Acute medical concerns: No Medical Review of Systems: unchanged Review of Systems Review of Systems Denies Mental Status Exam Mental Status Exam Patient Appearance: Appropriate Patient Orientation: Person, Place and Situation Level of Consciousness: Alert Patient Behavior: Talkative and Good Eye Contact Mood Description: Apprehensive Affect Description: Apprehensive Patient Cognition Impaired: No Ability to Follow Directions: Fair Speech Pattern: Spontaneous Speech Memory Description: Episodic Impaired Hallucinations: None (pt denies today) Thought Process: Distracted Thought Content: positive for Circumstantial, positive for Suicidal Ideation (denies) and positive for Homicidal Ideation (denies) Depressive Symptoms: Increased Anxiety Judgement: Fair Diagnostics Vital Signs (24Hr): Vital Signs - 24 hr 01/23/25 19:46 01/24/25 07:56 Temperature 97.6 F 97.7 F Pulse Rate 105 H 65 Respiratory Rate 15 18 Blood Pressure 138/70 130/74 Pulse Oximetry 98 97 Oxygen Delivery Method Room Air BMI result Body Mass Index 42.0 Labs 01/20/25 17:28 01/22/25 07:39 Medications Medications Current Medications Acetaminophen (Acetaminophen 325 Mg Tablet) 650 mg PO Q6H PRN PRN Reason: Headache/Pain, Scale 1-10 Al Hydroxide/Mg Hydroxide (Magnesium Hydrox/Alum Hydrox 30 Ml Oral.Susp) 30 ml PO Q6H PRN PRN Reason: Heartburn/Nausea Aripiprazole (Aripiprazole 30 Mg Tablet) 30 mg PO BEDTIME EMILY Last Admin: 01/23/25 20:51 Dose: 30 mg Clonidine HCl (Clonidine Hcl 0.2 Mg Tablet) 0.2 mg PO BEDTIME EMILY; Protocol Last Admin: 01/23/25 20:51 Dose: 0.2 mg Haloperidol (Haloperidol 5 Mg Tablet) 10 mg PO TID EMILY Last Admin: 01/24/25 08:40 Dose: 10 mg Hydroxyzine HCl (Hydroxyzine Hcl 25 Mg Tablet) 25 mg PO Q6H PRN PRN Reason: mild anxiety Last Admin: 01/22/25 12:02 Dose: 25 mg Magnesium Hydroxide (Milk Of Magnesia 30 Ml Oral.Susp) 30 ml PO DAILY PRN PRN Reason: Constipation Nicotine (Nicotine 21 Mg Patch.Td24) 21 mg TRANSDERMA DAILY PRN PRN Reason: smoking cessation Olanzapine (Olanzapine 10 Mg Tablet) 10 mg PO TID PRN PRN Reason: agitation Sumatriptan Succinate (Sumatriptan Succinate 100 Mg Tablet) 100 mg PO DAILY PRN PRN Reason: migraine Topiramate (Topiramate 100 Mg Tablet) 200 mg PO BEDTIME EMILY Last Admin: 01/23/25 20:50 Dose: 200 mg Trazodone HCl (Trazodone Hcl 50 Mg Tablet) 50 mg PO BEDTIME PRN PRN Reason: insomnia Last Admin: 01/23/25 20:50 Dose: 50 mg Trazodone HCl (Trazodone Hcl 50 Mg Tablet) 50 mg PO BEDTIME MRX1 PRN PRN Reason: Insomnia Allergies Allergies Allergy/AdvReac Type Severity Reaction Status Date / Time paliperidone [From [facility]] Allergy Itching Verified 01/20/25 16:47 Assessment & Plan Assessment & Plan (1) Schizophrenia: Status: Acute Code(s): F20.9 - Schizophrenia, unspecified Plan Patient is a 24-year-old male with history of schizophrenia, off Invega Sustenna for about 3 months who presents with i.e. compensated psychotic symptoms and aggression. Patient is a poor historian. He initially says he does not know why his mother wanted him to come to the hospital. He quickly became angry at scientific technical writer, starting to yell at scientific technical writer, intense and starting to posture, including as scientific technical writer walks away down the goodman I wanted different doctor... I do not trust you and that that scientific technical writer is a shit doctor. Instructional Coach needed to terminate conversation and get away from patient for safety. Earlier he got angry at a nurse and also swore at her. Mother provided some collateral to staff. Apparently patient has been stable since his hospitalization when he was 16 years old, benefitting from Lita Ponce; he attended [employer] and graduated. It is not clear if Lita Ponce stopped working or he refused to take it but he has been decompensating over the past 3 months and has had to other recent hospitalizations. Mother says that he is scaring her and the neighbors;,paranoid and delusional frequently self dialoguing. Prior to coming to the hospital he tried to jump out of moving car. Formulation/clinical reasoning: Decompensated schizophrenia; either patient stopped taking Lita Ponce or it stopped working. At the mentioned of the word Varun[place] patient became extremely angry. However he was started on other medications (at other admission? ) which she is amenable to taking, including Abilify and Haldol so will continue these; scientific technical writer will increase Haldol to 10 mg t.i.d., up from b.i.d.. -will give patient single room for safety of peers, since patient easily provoked Hospital course: 01/23 Patient seems to be more calm today. Guarded on approach and little to say to scientific technical writer other than that he is doing all right and has no complaints or requests and says nothing is on his mind. Instructional Coach left it there so as not to accidentally provoke. Patient taking prescribed medication. To nursing staff patient said I was tormented yesterday... 01/24 Continue plan/regime. Plan: CV Q 15 minute checks -will give patient single room since easily provoked Continue?Abilify 30 mg q.h.s. Continue Clonidine 0.2 mg q.h.s. Continue Topamax 200 mg q.h.s. Increase to Haldol 10 mg t.i.d., up from b.i.d. Reason for continued inpatient stay Substantial Risk for: rapid decompensation Time Spent With Patient Time: Total time managing care of this patient today ____ minutes.
[2025-01-24 20:00] VITALS: BP 135/74; PULSE 76; RESP 16; TEMP 36.6; O2SAT 98
[2025-01-24 20:55] VITALS: BP 135/74
[2025-01-24] MEDS: ARIPiprazole 30 MG TABLET PO (20:55)
[2025-01-24] MEDS: traZODone HCL 50 MG TABLET PO (20:55)
[2025-01-24] MEDS: hydrOXYzine HCL 25 MG TABLET PO (20:55)
[2025-01-24] MEDS: cloNIDine HCL 0.2 MG TABLET PO (20:55)
[2025-01-24] MEDS: Topiramate 100 MG TABLET 200 MG PO (20:56)
[2025-01-25 07:53] VITALS: BP 116/53; PULSE 64; RESP 16; TEMP 36.4; O2SAT 98
[2025-01-25] MEDS: HaloperidoL 5 MG TABLET 10 MG PO ×3 (08:35→20:53)
--- NOTE | 2025-01-25 09:29 | HO.PSYCHPN ---
Subjective Subjective Date of Service: 01/25/25 Reason For Visit: Pyschosis Subjective Notes: Conditional Voluntary Healthcare Proxy: No Guardianship: No Medical Problems Affecting Mental Status: No Interim History: Call from pt's mom, met with pt's mom, who is an SEWING MACHINE OPERATOR SEMIAUTOMATIC, who reports she is very concerned for pt's well being. By hx he is stable, had been on Invega sustenna 6-7 years, however it was not managing sx. Pt attended [facility] however was too high functioning to benefit from this. Decompensating since Oct of this year. Last admit before these three was age 16-pt has been stable. By history, graduated high school, ministry school Mom believes pt is more appropriate for DMH than DDS. She has filed for services for him. Behaviors have included auditory perceptual alterations, putting his hand through the window, 47 lb weight loss in the past few months (was 400 lbs). Pt was at [facility]-they did PO Abilify with Haldol. He was not sleeping, calling mom, talking nonsense. In [place] he was frightened by screaming pts. At the care plan meeting mom was given options that were not appropriate for pt-nursing home, family restraining order, shared living. Mom called [place] for help. Mom believes much of this originates to loss of great grandmother in 2020-he did not mourn and his grandmother made chaos in the family so pt and mother had to leave great grandmothers home quickly after her . Father has also been a trigger for pt. Mom is hoping for [facility] to help him with a living situation geared toward independence and moving forward. Call to pt's MD Dr. Feng Villa who has known pt for several years [phone]. Dr. Villa suggests Abilify Maintena with keeping PO Abilify or Haldol Dec as he is on PO Haldol at this time. Discussed with pt who refuses at this time. He will consider these recommendations however. Medication Compliance: Yes Side effects from medications: No Attending Groups: Intermittent Review of Systems Acute medical concerns: No Review of Systems Review of Systems Denies Mental Status Exam Mental Status Exam Patient Appearance: Appropriate Patient Orientation: Person, Place and Situation Level of Consciousness: Alert Patient Behavior: Talkative and Good Eye Contact Mood Description: Apprehensive Affect Description: Apprehensive Patient Cognition Impaired: No Ability to Follow Directions: Fair Speech Pattern: Spontaneous Speech Memory Description: Episodic Impaired Hallucinations: None (pt denies today) Thought Process: Distracted Thought Content: positive for Circumstantial, positive for Suicidal Ideation (denies) and positive for Homicidal Ideation (denies) Depressive Symptoms: Increased Anxiety Judgement: Fair Diagnostics Vital Signs (24Hr): Vital Signs - 24 hr 01/24/25 20:00 01/24/25 20:55 01/25/25 07:53 Temperature 97.8 F 97.6 F Pulse Rate 76 64 Respiratory Rate 16 16 Blood Pressure 135/74 135/74 116/53 L Pulse Oximetry 98 98 Oxygen Delivery Method Room Air Room Air BMI result Body Mass Index 42.0 Labs 01/20/25 17:28 01/22/25 07:39 Medications Medications Current Medications Acetaminophen (Acetaminophen 325 Mg Tablet) 650 mg PO Q6H PRN PRN Reason: Headache/Pain, Scale 1-10 Al Hydroxide/Mg Hydroxide (Magnesium Hydrox/Alum Hydrox 30 Ml Oral.Susp) 30 ml PO Q6H PRN PRN Reason: Heartburn/Nausea Aripiprazole (Aripiprazole 30 Mg Tablet) 30 mg PO BEDTIME [facility] Last Admin: 01/24/25 20:55 Dose: 30 mg Clonidine HCl (Clonidine Hcl 0.2 Mg Tablet) 0.2 mg PO BEDTIME [facility]; Protocol Last Admin: 01/24/25 20:55 Dose: 0.2 mg Haloperidol (Haloperidol 5 Mg Tablet) 10 mg PO TID EMILY Last Admin: 01/25/25 08:35 Dose: 10 mg Hydroxyzine HCl (Hydroxyzine Hcl 25 Mg Tablet) 25 mg PO Q6H PRN PRN Reason: mild anxiety Last Admin: 01/24/25 20:55 Dose: 25 mg Magnesium Hydroxide (Milk Of Magnesia 30 Ml Oral.Susp) 30 ml PO DAILY PRN PRN Reason: Constipation Nicotine (Nicotine 21 Mg Patch.Td24) 21 mg TRANSDERMA DAILY PRN PRN Reason: smoking cessation Olanzapine (Olanzapine 10 Mg Tablet) 10 mg PO TID PRN PRN Reason: agitation Sumatriptan Succinate (Sumatriptan Succinate 100 Mg Tablet) 100 mg PO DAILY PRN PRN Reason: migraine Topiramate (Topiramate 100 Mg Tablet) 200 mg PO BEDTIME [facility] Last Admin: 01/24/25 20:56 Dose: 200 mg Trazodone HCl (Trazodone Hcl 50 Mg Tablet) 50 mg PO BEDTIME PRN PRN Reason: insomnia Last Admin: 01/24/25 20:55 Dose: 50 mg Trazodone HCl (Trazodone Hcl 50 Mg Tablet) 50 mg PO BEDTIME MRX1 PRN PRN Reason: Insomnia Allergies Allergies Allergy/AdvReac Type Severity Reaction Status Date / Time paliperidone [From Invega] Allergy Itching Verified 01/20/25 16:47 Assessment & Plan Assessment & Plan (1) Schizophrenia: Status: Acute Code(s): F20.9 - Schizophrenia, unspecified Plan Patient is a 24-year-old male with history of schizophrenia, off Invega Sustenna for about 3 months who presents with i.e. compensated psychotic symptoms and aggression. Patient is a poor historian. He initially says he does not know why his mother wanted him to come to the hospital. He quickly became angry at designer/writer, starting to yell at designer/writer, intense and starting to posture, including as designer/writer walks away down the goodman I wanted different doctor... I do not trust you and that that designer/writer is a shit doctor. Donkey Engine Firer/Fireman needed to terminate conversation and get away from patient for safety. Earlier he got angry at a nurse and also swore at her. Mother provided some collateral to staff. Apparently patient has been stable since his hospitalization when he was 16 years old, benefitting from Invega Sustenna; he attended [employer] and graduated. It is not clear if Invega Sustenna stopped working or he refused to take it but he has been decompensating over the past 3 months and has had to other recent hospitalizations. Mother says that he is scaring her and the neighbors;,paranoid and delusional frequently self dialoguing. Prior to coming to the hospital he tried to jump out of moving car. Formulation/clinical reasoning: Decompensated schizophrenia; either patient stopped taking Invega Sustenna or it stopped working. At the mentioned of the word Invega patient became extremely angry. However he was started on other medications (at other admission? ) which she is amenable to taking, including Abilify and Haldol so will continue these; designer/writer will increase Haldol to 10 mg t.i.d., up from b.i.d.. -will give patient single room for safety of peers, since patient easily provoked Hospital course: 01/23 Patient seems to be more calm today. Guarded on approach and little to say to designer/writer other than that he is doing all right and has no complaints or requests and says nothing is on his mind. Donkey Engine Firer/Fireman left it there so as not to accidentally provoke. Patient taking prescribed medication. To nursing staff patient said I was tormented yesterday... 01/24 Continue plan/regime. 01/25 Suggested to pt a trial of Abilifallyssa [place] per his OP MD Dr. Feng Villa. He will consider. Plan: CV Q 15 minute checks -will give patient single room since easily provoked Continue?Abilify 30 mg q.h.s. Continue Clonidine 0.2 mg q.h.s. Continue Topamax 200 mg q.h.s. Increase to Haldol 10 mg t.i.d., up from b.i.d. Reason for continued inpatient stay Substantial Risk for: rapid decompensation Time Spent With Patient Time: Total time managing care of this patient today ____ minutes.
[2025-01-25 19:58] VITALS: BP 141/96; PULSE 75; TEMP 36.7; O2SAT 99
[2025-01-25] MEDS: ARIPiprazole 30 MG TABLET PO (20:50)
[2025-01-25 20:54] VITALS: BP 141/96
[2025-01-25] MEDS: cloNIDine HCL 0.2 MG TABLET PO (20:54)
[2025-01-25] MEDS: Topiramate 100 MG TABLET 200 MG PO (20:54)
[2025-01-26 08:00] VITALS: BP 123/62; PULSE 53; RESP 16; TEMP 36.6; O2SAT 99
[2025-01-26] MEDS: HaloperidoL 5 MG TABLET 10 MG PO ×3 (08:18→21:06)
--- NOTE | 2025-01-26 10:03 | P.PNPSI_ITS ---
Subjective Subjective Date of Service: 01/26/25 Reason For Visit: Pyschosis Subjective Notes: Conditional Voluntary Healthcare Proxy: No Guardianship: No Medical Problems Affecting Mental Status: No Interim History: Met with pt and Mariya Laboy RN to discuss medications. Pt will not consider IM- he believes is is a violation of the body to have IM meds or tattoos, per the bible. Injections make one dependent upon others he states. States he feels mom hates him, he does not want to live with mom as she chooses other men over him. He reports Melissa is looking for a living situation for him. PO Haldol helps and he will continue this. Again he refuses Haldol Dec or Abilify Maintena (suggested by his OP MD) Medication Compliance: Yes Side effects from medications: No Attending Groups: Intermittent Review of Systems Acute medical concerns: No Review of Systems Review of Systems Denies Mental Status Exam Mental Status Exam Patient Appearance: Appropriate Patient Orientation: Person, Place and Situation Level of Consciousness: Alert Patient Behavior: Talkative and Good Eye Contact Mood Description: Apprehensive Affect Description: Apprehensive Patient Cognition Impaired: No Ability to Follow Directions: Fair Speech Pattern: Spontaneous Speech Memory Description: Episodic Impaired Hallucinations: None (pt denies today) Thought Process: Distracted Thought Content: positive for Circumstantial, positive for Suicidal Ideation (denies) and positive for Homicidal Ideation (denies) Depressive Symptoms: Increased Anxiety Judgement: Fair Diagnostics Vital Signs (24Hr): Vital Signs - 24 hr 01/25/25 19:58 01/25/25 20:54 01/26/25 08:00 Temperature 98.1 F 97.8 F Pulse Rate 75 53 Respiratory Rate 16 Blood Pressure 141/96 H 141/96 H 123/62 Pulse Oximetry 99 99 Oxygen Delivery Method Room Air Room Air BMI result Body Mass Index 42.0 Labs 01/20/25 17:28 01/22/25 07:39 Medications Medications Current Medications Acetaminophen (Acetaminophen 325 Mg Tablet) 650 mg PO Q6H PRN PRN Reason: Headache/Pain, Scale 1-10 Al Hydroxide/Mg Hydroxide (Magnesium Hydrox/Alum Hydrox 30 Ml Oral.Susp) 30 ml PO Q6H PRN PRN Reason: Heartburn/Nausea Aripiprazole (Aripiprazole 30 Mg Tablet) 30 mg PO BEDTIME EMILY Last Admin: 01/25/25 20:50 Dose: 30 mg Clonidine HCl (Clonidine Hcl 0.2 Mg Tablet) 0.2 mg PO BEDTIME EMILY; Protocol Last Admin: 01/25/25 20:54 Dose: 0.2 mg Haloperidol (Haloperidol 5 Mg Tablet) 10 mg PO TID EMILY Last Admin: 01/26/25 08:18 Dose: 10 mg Hydroxyzine HCl (Hydroxyzine Hcl 25 Mg Tablet) 25 mg PO Q6H PRN PRN Reason: mild anxiety Last Admin: 01/24/25 20:55 Dose: 25 mg Magnesium Hydroxide (Milk Of Magnesia 30 Ml Oral.Susp) 30 ml PO DAILY PRN PRN Reason: Constipation Nicotine (Nicotine 21 Mg Patch.Td24) 21 mg TRANSDERMA DAILY PRN PRN Reason: smoking cessation Olanzapine (Olanzapine 10 Mg Tablet) 10 mg PO TID PRN PRN Reason: agitation Sumatriptan Succinate (Sumatriptan Succinate 100 Mg Tablet) 100 mg PO DAILY PRN PRN Reason: migraine Topiramate (Topiramate 100 Mg Tablet) 200 mg PO BEDTIME EMILY Last Admin: 01/25/25 20:54 Dose: 200 mg Trazodone HCl (Trazodone Hcl 50 Mg Tablet) 50 mg PO BEDTIME PRN PRN Reason: insomnia Last Admin: 01/24/25 20:55 Dose: 50 mg Trazodone HCl (Trazodone Hcl 50 Mg Tablet) 50 mg PO BEDTIME MRX1 PRN PRN Reason: Insomnia Allergies Allergies Allergy/AdvReac Type Severity Reaction Status Date / Time paliperidone [From Invega] Allergy Itching Verified 01/20/25 16:47 Assessment & Plan Assessment & Plan (1) Schizophrenia: Status: Acute Code(s): F20.9 - Schizophrenia, unspecified Plan Patient is a 24-year-old male with history of schizophrenia, off Invega Sustenna for about 3 months who presents with i.e. compensated psychotic symptoms and aggression. Patient is a poor historian. He initially says he does not know why his mother wanted him to come to the hospital. He quickly became angry at show card writer, starting to yell at show card writer, intense and starting to posture, including as show card writer walks away down the goodman I wanted different doctor... I do not trust you and that that show card writer is a shit doctor. Flight Inspector needed to terminate conversation and get away from patient for safety. Earlier he got angry at a nurse and also swore at her. Mother provided some collateral to staff. Apparently patient has been stable since his hospitalization when he was 16 years old, benefitting from Lita Ponce; he attended [employer] and graduated. It is not clear if Lita Ponce stopped working or he refused to take it but he has been decompensating over the past 3 months and has had to other recent hospitalizations. Mother says that he is scaring her and the neighbors;,paranoid and delusional frequently self dialoguing. Prior to coming to the hospital he tried to jump out of moving car. Formulation/clinical reasoning: Decompensated schizophrenia; either patient stopped taking Invega Sustenna or it stopped working. At the mentioned of the word Invega patient became extremely angry. However he was started on other medications (at other admission? ) which she is amenable to taking, including Abilify and Haldol so will continue these; show card writer will increase Haldol to 10 mg t.i.d., up from b.i.d.. -will give patient single room for safety of peers, since patient easily provoked Hospital course: 01/23 Patient seems to be more calm today. Guarded on approach and little to say to show card writer other than that he is doing all right and has no complaints or requests and says nothing is on his mind. Flight Inspector left it there so as not to accidentally provoke. Patient taking prescribed medication. To nursing staff patient said I was tormented yesterday... 01/24 Continue plan/regime. 01/25 Suggested to pt a trial of Allie Bingham per his OP MD Dr. Feng Villa. He will consider. 01/26 Refuses all LILLY suggestions. Plan: CV Q 15 minute checks -will give patient single room since easily provoked Continue?Abilify 30 mg q.h.s. Continue Clonidine 0.2 mg q.h.s. Continue Topamax 200 mg q.h.s. Increase to Haldol 10 mg t.i.d., up from b.i.d. Reason for continued inpatient stay Substantial Risk for: rapid decompensation Time Spent With Patient Time: Total time managing care of this patient today ____ minutes.
[2025-01-26 20:00] VITALS: BP 115/59; PULSE 70; TEMP 36.8; O2SAT 98
[2025-01-26 21:06] VITALS: BP 115/59
[2025-01-26] MEDS: ARIPiprazole 30 MG TABLET PO (21:06)
[2025-01-26] MEDS: cloNIDine HCL 0.2 MG TABLET PO (21:06)
[2025-01-26] MEDS: Topiramate 100 MG TABLET 200 MG PO (21:06)
[2025-01-27 08:00] VITALS: BP 94/53; PULSE 77; RESP 16; TEMP 36.7; O2SAT 98
[2025-01-27] MEDS: HaloperidoL 5 MG TABLET 10 MG PO ×3 (08:23→22:05)
--- NOTE | 2025-01-27 10:19 | HO.PSYCHPN ---
Subjective Subjective Date of Service: 01/27/25 Reason For Visit: Pyschosis Subjective Notes: Conditional Voluntary Healthcare Proxy: No Guardianship: No Medical Problems Affecting Mental Status: No Interim History: Pt reports feeling very well today. Denies SI,HI,AH,VH. No sx of acute psychosis or noelle. He is pleased with Haldol, states he will remain with current regime and continues to refuse any LILLY preparation. He hopes his OP team can find him a safe housing situation upon discharge. Medication Compliance: Yes Side effects from medications: No Attending Groups: No Review of Systems Acute medical concerns: No Medical Review of Systems: unchanged Review of Systems Review of Systems Denies Mental Status Exam Mental Status Exam Patient Appearance: Appropriate Patient Orientation: Person, Place and Situation Level of Consciousness: Alert Patient Behavior: Talkative and Good Eye Contact Mood Description: Apprehensive Affect Description: Apprehensive Patient Cognition Impaired: No Ability to Follow Directions: Fair Speech Pattern: Spontaneous Speech Memory Description: Episodic Impaired Hallucinations: None (pt denies today) Thought Process: Distracted Thought Content: positive for Circumstantial, positive for Suicidal Ideation (denies) and positive for Homicidal Ideation (denies) Depressive Symptoms: Increased Anxiety Judgement: Fair Diagnostics Vital Signs (24Hr): Vital Signs - 24 hr 01/26/25 20:00 01/26/25 21:06 01/27/25 08:00 Temperature 98.2 F 98.1 F Pulse Rate 70 77 Respiratory Rate 16 Blood Pressure 115/59 L 115/59 L 94/53 L Pulse Oximetry 98 98 Oxygen Delivery Method Room Air Room Air BMI result Body Mass Index 42.0 Labs 01/20/25 17:28 01/22/25 07:39 Medications Medications Current Medications Acetaminophen (Acetaminophen 325 Mg Tablet) 650 mg PO Q6H PRN PRN Reason: Headache/Pain, Scale 1-10 Al Hydroxide/Mg Hydroxide (Magnesium Hydrox/Alum Hydrox 30 Ml Oral.Susp) 30 ml PO Q6H PRN PRN Reason: Heartburn/Nausea Aripiprazole (Aripiprazole 30 Mg Tablet) 30 mg PO BEDTIME EMILY Last Admin: 01/26/25 21:06 Dose: 30 mg Clonidine HCl (Clonidine Hcl 0.2 Mg Tablet) 0.2 mg PO BEDTIME EMILY; Protocol Last Admin: 01/26/25 21:06 Dose: 0.2 mg Haloperidol (Haloperidol 5 Mg Tablet) 10 mg PO TID EMILY Last Admin: 01/27/25 08:23 Dose: 10 mg Hydroxyzine HCl (Hydroxyzine Hcl 25 Mg Tablet) 25 mg PO Q6H PRN PRN Reason: mild anxiety Last Admin: 01/24/25 20:55 Dose: 25 mg Magnesium Hydroxide (Milk Of Magnesia 30 Ml Oral.Susp) 30 ml PO DAILY PRN PRN Reason: Constipation Nicotine (Nicotine 21 Mg Patch.Td24) 21 mg TRANSDERMA DAILY PRN PRN Reason: smoking cessation Olanzapine (Olanzapine 10 Mg Tablet) 10 mg PO TID PRN PRN Reason: agitation Sumatriptan Succinate (Sumatriptan Succinate 100 Mg Tablet) 100 mg PO DAILY PRN PRN Reason: migraine Topiramate (Topiramate 100 Mg Tablet) 200 mg PO BEDTIME EMILY Last Admin: 01/26/25 21:06 Dose: 200 mg Trazodone HCl (Trazodone Hcl 50 Mg Tablet) 50 mg PO BEDTIME PRN PRN Reason: insomnia Last Admin: 01/24/25 20:55 Dose: 50 mg Trazodone HCl (Trazodone Hcl 50 Mg Tablet) 50 mg PO BEDTIME MRX1 PRN PRN Reason: Insomnia Allergies Allergies Allergy/AdvReac Type Severity Reaction Status Date / Time paliperidone [From [facility]] Allergy Itching Verified 01/20/25 16:47 Assessment & Plan Assessment & Plan (1) Schizophrenia: Status: Acute Code(s): F20.9 - Schizophrenia, unspecified Plan Patient is a 24-year-old male with history of schizophrenia, off [facility] for about 3 months who presents with i.e. compensated psychotic symptoms and aggression. Patient is a poor historian. He initially says he does not know why his mother wanted him to come to the hospital. He quickly became angry at headline writer, starting to yell at headline writer, intense and starting to posture, including as headline writer walks away down the goodman I wanted different doctor... I do not trust you and that that headline writer is a shit doctor. Fitter Type Bar [employer] Segment needed to terminate conversation and get away from patient for safety. Earlier he got angry at a nurse and also swore at her. Mother provided some collateral to staff. Apparently patient has been stable since his hospitalization when he was 16 years old, benefitting from Invega Sustenna; he attended [employer] and graduated. It is not clear if Lita Ponce stopped working or he refused to take it but he has been decompensating over the past 3 months and has had to other recent hospitalizations. Mother says that he is scaring her and the neighbors;,paranoid and delusional frequently self dialoguing. Prior to coming to the hospital he tried to jump out of moving car. Formulation/clinical reasoning: Decompensated schizophrenia; either patient stopped taking Lita Ponce or it stopped working. At the mentioned of the word Invcassidy patient became extremely angry. However he was started on other medications (at other admission? ) which she is amenable to taking, including Abilify and Haldol so will continue these; headline writer will increase Haldol to 10 mg t.i.d., up from b.i.d.. -will give patient single room for safety of peers, since patient easily provoked Hospital course: 01/23 Patient seems to be more calm today. Guarded on approach and little to say to headline writer other than that he is doing all right and has no complaints or requests and says nothing is on his mind. Fitter Type Bar [employer] Segment left it there so as not to accidentally provoke. Patient taking prescribed medication. To nursing staff patient said I was tormented yesterday... 01/24 Continue plan/regime. 01/25 Suggested to pt a trial of Abilifallyssa Domingueza per his OP MD Dr. Feng Villa. He will consider. 01/26 Refuses all LILLY suggestions. 01/27 Continue regime/plan Plan: CV Q 15 minute checks -will give patient single room since easily provoked Continue?Abilify 30 mg q.h.s. Continue Clonidine 0.2 mg q.h.s. Continue Topamax 200 mg q.h.s. Increase to Haldol 10 mg t.i.d., up from b.i.d. Reason for continued inpatient stay Substantial Risk for: rapid decompensation Time Spent With Patient Time: Total time managing care of this patient today ____ minutes.
[2025-01-27 20:00] VITALS: BP 153/72; PULSE 84; TEMP 36.6; O2SAT 98
[2025-01-27] MEDS: ARIPiprazole 30 MG TABLET PO (22:05)
[2025-01-27] MEDS: Topiramate 100 MG TABLET 200 MG PO (22:06)
[2025-01-27 22:07] VITALS: BP 153/72
[2025-01-27] MEDS: cloNIDine HCL 0.2 MG TABLET PO (22:07)
[2025-01-27] MEDS: Milk of Magnesia 30 ML ORAL.SUSP PO (22:30)
[2025-01-28 08:00] VITALS: BP 105/59; PULSE 58; TEMP 36.4; O2SAT 97
[2025-01-28] MEDS: HaloperidoL 5 MG TABLET 10 MG PO ×4 (09:27→21:48)
--- NOTE | 2025-01-28 10:22 | HO.PSYCHPN ---
Subjective Subjective Date of Service: 01/28/25 Reason For Visit: Pyschosis Subjective Notes: Conditional Voluntary Healthcare Proxy: No Guardianship: No Medical Problems Affecting Mental Status: No Interim History: Pt with agitation this a.m. Argument with mother. She picks at me, I have no time for this. Discussed with mother- His head is not there, this is not him, we don't argue like this. Pt continues to decline LILLY. This may interfere with his ability to return to mom's home. Pt social with peers this afternoon. 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 Medication Compliance: Yes Side effects from medications: No Attending Groups: Intermittent Review of Systems Acute medical concerns: No Review of Systems Review of Systems denies Mental Status Exam Mental Status Exam Patient Appearance: Appropriate Patient Orientation: Person, Place and Situation Level of Consciousness: Alert Patient Behavior: Talkative and Good Eye Contact Mood Description: Apprehensive Affect Description: Apprehensive Patient Cognition Impaired: No Ability to Follow Directions: Fair Speech Pattern: Spontaneous Speech Memory Description: Episodic Impaired Hallucinations: None (pt denies today) Thought Process: Distracted Thought Content: positive for Circumstantial, positive for Suicidal Ideation (denies) and positive for Homicidal Ideation (denies) Depressive Symptoms: Increased Anxiety Judgement: Fair Diagnostics Vital Signs (24Hr): Vital Signs - 24 hr 01/27/25 20:00 01/27/25 22:07 01/28/25 08:00 Temperature 97.9 F 97.5 F Pulse Rate 84 58 Blood Pressure 153/72 H 153/72 H 105/59 L Pulse Oximetry 98 97 Oxygen Delivery Method Room Air Room Air BMI result Body Mass Index 42.0 Labs 01/20/25 17:28 01/22/25 07:39 Medications Medications Current Medications Acetaminophen (Acetaminophen 325 Mg Tablet) 650 mg PO Q6H PRN PRN Reason: Headache/Pain, Scale 1-10 Al Hydroxide/Mg Hydroxide (Magnesium Hydrox/Alum Hydrox 30 Ml Oral.Susp) 30 ml PO Q6H PRN PRN Reason: Heartburn/Nausea Aripiprazole (Aripiprazole 30 Mg Tablet) 30 mg PO BEDTIME EMILY Last Admin: 01/27/25 22:05 Dose: 30 mg Clonidine HCl (Clonidine Hcl 0.2 Mg Tablet) 0.2 mg PO BEDTIME EMILY; Protocol Last Admin: 01/27/25 22:07 Dose: 0.2 mg Haloperidol (Haloperidol 5 Mg Tablet) 10 mg PO TID EMILY Last Admin: 01/28/25 09:27 Dose: 10 mg Hydroxyzine HCl (Hydroxyzine Hcl 25 Mg Tablet) 25 mg PO Q6H PRN PRN Reason: mild anxiety Last Admin: 01/24/25 20:55 Dose: 25 mg Magnesium Hydroxide (Milk Of Magnesia 30 Ml Oral.Susp) 30 ml PO DAILY PRN PRN Reason: Constipation Last Admin: 01/27/25 22:30 Dose: 30 ml Nicotine (Nicotine 21 Mg Patch.Td24) 21 mg TRANSDERMA DAILY PRN PRN Reason: smoking cessation Olanzapine (Olanzapine 10 Mg Tablet) 10 mg PO TID PRN PRN Reason: agitation Sumatriptan Succinate (Sumatriptan Succinate 100 Mg Tablet) 100 mg PO DAILY PRN PRN Reason: migraine Topiramate (Topiramate 100 Mg Tablet) 200 mg PO BEDTIME EMILY Last Admin: 01/27/25 22:06 Dose: 200 mg Trazodone HCl (Trazodone Hcl 50 Mg Tablet) 50 mg PO BEDTIME PRN PRN Reason: insomnia Last Admin: 01/24/25 20:55 Dose: 50 mg Trazodone HCl (Trazodone Hcl 50 Mg Tablet) 50 mg PO BEDTIME MRX1 PRN PRN Reason: Insomnia Allergies Allergies Allergy/AdvReac Type Severity Reaction Status Date / Time paliperidone [From Invega] Allergy Itching Verified 01/20/25 16:47 Assessment & Plan Assessment & Plan (1) Schizophrenia: Status: Acute Code(s): F20.9 - Schizophrenia, unspecified Plan Patient is a 24-year-old male with history of schizophrenia, off Invega Sustenna for about 3 months who presents with i.e. compensated psychotic symptoms and aggression. Patient is a poor historian. He initially says he does not know why his mother wanted him to come to the hospital. He quickly became angry at freelance writer, starting to yell at freelance writer, intense and starting to posture, including as freelance writer walks away down the goodman I wanted different doctor... I do not trust you and that that freelance writer is a shit doctor. Mobile Phone Salesperson needed to terminate conversation and get away from patient for safety. Earlier he got angry at a nurse and also swore at her. Mother provided some collateral to staff. Apparently patient has been stable since his hospitalization when he was 16 years old, benefitting from Lita Ponce; he attended [employer] school and graduated. It is not clear if Lita Ponce stopped working or he refused to take it but he has been decompensating over the past 3 months and has had to other recent hospitalizations. Mother says that he is scaring her and the neighbors;,paranoid and delusional frequently self dialoguing. Prior to coming to the hospital he tried to jump out of moving car. Formulation/clinical reasoning: Decompensated schizophrenia; either patient stopped taking Invega Rosario or it stopped working. At the mentioned of the word Invega patient became extremely angry. However he was started on other medications (at other admission? ) which she is amenable to taking, including Abilify and Haldol so will continue these; freelance writer will increase Haldol to 10 mg t.i.d., up from b.i.d.. -will give patient single room for safety of peers, since patient easily provoked Hospital course: 01/23 Patient seems to be more calm today. Guarded on approach and little to say to freelance writer other than that he is doing all right and has no complaints or requests and says nothing is on his mind. Mobile Phone Salesperson left it there so as not to accidentally provoke. Patient taking prescribed medication. To nursing staff patient said I was tormented yesterday... 01/24 Continue plan/regime. 01/25 Suggested to pt a trial of Allie Bingham per his OP MD Dr. Feng Villa. He will consider. 01/26 Refuses all LILLY suggestions. 01/27 Continue regime/plan 01/28 Some breakthrough sx. Increase Haldol to 10 mg qid Plan: CV Q 15 minute checks -will give patient single room since easily provoked Continue?Abilify 30 mg q.h.s. Continue Clonidine 0.2 mg q.h.s. Continue Topamax 200 mg q.h.s. Increase to Haldol 10 mg t.i.d., up from b.i.d. Reason for continued inpatient stay Substantial Risk for: rapid decompensation Time Spent With Patient Time: Total time managing care of this patient today ____ minutes.
[2025-01-28 20:00] VITALS: BP 153/90; PULSE 78; RESP 16; TEMP 36.8; O2SAT 98
[2025-01-28 21:27] VITALS: BP 179/91
[2025-01-28] MEDS: cloNIDine HCL 0.2 MG TABLET PO (21:27)
[2025-01-28] MEDS: ARIPiprazole 30 MG TABLET PO (21:27)
[2025-01-28] MEDS: Topiramate 100 MG TABLET 200 MG PO (21:28)
[2025-01-28] MEDS: Milk of Magnesia 30 ML ORAL.SUSP PO (21:48)
--- NOTE | 2025-01-29 07:23 | P.PNPSI_ITS ---
Subjective Subjective Date of Service: 01/29/25 Reason For Visit: Pyschosis Subjective Notes: Conditional Voluntary Healthcare Proxy: No Guardianship: No Medical Problems Affecting Mental Status: No Interim History: 24 yo with schizophrenia doing better on haldol qid, only side effect is feeling tired (not sedated), no need to nap = and slept last pm=- focus on being a moral man- Medication Compliance: Yes Side effects from medications: Yes (tiredness) Attending Groups: Intermittent Review of Systems Acute medical concerns: No Medical Review of Systems: unchanged Mental Status Exam Mental Status Exam Patient Appearance: Well Grooomed and Appropriate Patient Orientation: Person, Place, Time and Situation Level of Consciousness: Awake Patient Behavior: Appropriate and Good Eye Contact Mood Description: Calm Affect Description: Blunted Patient Cognition Impaired: No Ability to Follow Directions: Fair Speech Pattern: Clear Hallucinations: None Thought Process: Intact Judgement: Fair Diagnostics Vital Signs (24Hr): Vital Signs - 24 hr 01/28/25 08:00 01/28/25 20:00 01/28/25 21:27 Temperature 97.5 F 98.3 F Pulse Rate 58 78 Respiratory Rate 16 Blood Pressure 105/59 L 153/90 H 179/91 H Pulse Oximetry 97 98 Oxygen Delivery Method Room Air Room Air BMI result Body Mass Index 42.0 Labs 01/20/25 17:28 01/22/25 07:39 Medications Medications Current Medications Acetaminophen (Acetaminophen 325 Mg Tablet) 650 mg PO Q6H PRN PRN Reason: Headache/Pain, Scale 1-10 Al Hydroxide/Mg Hydroxide (Magnesium Hydrox/Alum Hydrox 30 Ml Oral.Susp) 30 ml PO Q6H PRN PRN Reason: Heartburn/Nausea Aripiprazole (Aripiprazole 30 Mg Tablet) 30 mg PO BEDTIME EMILY Last Admin: 01/28/25 21:27 Dose: 30 mg Clonidine HCl (Clonidine Hcl 0.2 Mg Tablet) 0.2 mg PO BEDTIME EMILY; Protocol Last Admin: 01/28/25 21:27 Dose: 0.2 mg Haloperidol (Haloperidol 5 Mg Tablet) 10 mg PO QID EMILY Last Admin: 01/28/25 21:48 Dose: 10 mg Hydroxyzine HCl (Hydroxyzine Hcl 25 Mg Tablet) 25 mg PO Q6H PRN PRN Reason: mild anxiety Last Admin: 01/24/25 20:55 Dose: 25 mg Magnesium Hydroxide (Milk Of Magnesia 30 Ml Oral.Susp) 30 ml PO DAILY PRN PRN Reason: Constipation Last Admin: 01/28/25 21:48 Dose: 30 ml Nicotine (Nicotine 21 Mg Patch.Td24) 21 mg TRANSDERMA DAILY PRN PRN Reason: smoking cessation Olanzapine (Olanzapine 10 Mg Tablet) 10 mg PO TID PRN PRN Reason: agitation Sumatriptan Succinate (Sumatriptan Succinate 100 Mg Tablet) 100 mg PO DAILY PRN PRN Reason: migraine Topiramate (Topiramate 100 Mg Tablet) 200 mg PO BEDTIME EMILY Last Admin: 01/28/25 21:28 Dose: 200 mg Trazodone HCl (Trazodone Hcl 50 Mg Tablet) 50 mg PO BEDTIME MRX1 PRN PRN Reason: Insomnia Allergies Allergies Allergy/AdvReac Type Severity Reaction Status Date / Time paliperidone [From [employer]] Allergy Itching Verified 01/20/25 16:47 Assessment & Plan Assessment & Plan (1) Schizophrenia: Status: Acute Code(s): F20.9 - Schizophrenia, unspecified Plan Patient is a 24-year-old male with history of schizophrenia, off Invega Sustenna for about 3 months who presents with i.e. compensated psychotic symptoms and aggression. Patient is a poor historian. He initially says he does not know why his mother wanted him to come to the hospital. He quickly became angry at teletypewriter operator, starting to yell at teletypewriter operator, intense and starting to posture, including as teletypewriter operator walks away down the goodman I wanted different doctor... I do not trust you and that that teletypewriter operator is a shit doctor. Shipping And Receiving Associate needed to terminate conversation and get away from patient for safety. Earlier he got angry at a nurse and also swore at her. Mother provided some collateral to staff. Apparently patient has been stable since his hospitalization when he was 16 years old, benefitting from Invega Sustenna; he attended [employer] school and graduated. It is not clear if Invega Sustenna stopped working or he refused to take it but he has been decompensating over the past 3 months and has had to other recent hospitalizations. Mother says that he is scaring her and the neighbors;,paranoid and delusional frequently self dialoguing. Prior to coming to the hospital he tried to jump out of moving car. Formulation/clinical reasoning: Decompensated schizophrenia; either patient stopped taking Invega Sustenna or it stopped working. At the mentioned of the word Invega patient became extremely angry. However he was started on other medications (at other admission? ) which she is amenable to taking, including Abilify and Haldol so will continue these; teletypewriter operator will increase Haldol to 10 mg t.i.d., up from b.i.d.. -will give patient single room for safety of peers, since patient easily provoked Hospital course: 01/23 Patient seems to be more calm today. Guarded on approach and little to say to teletypewriter operator other than that he is doing all right and has no complaints or requests and says nothing is on his mind. Shipping And Receiving Associate left it there so as not to accidentally provoke. Patient taking prescribed medication. To nursing staff patient said I was tormented yesterday... 01/24 Continue plan/regime. 01/25 Suggested to pt a trial of Abilify [place] per his OP MD Dr. Feng Villa. He will consider. 01/26 Refuses all LILLY suggestions. 01/27 Continue regime/plan 01/28 Some breakthrough sx. Increase Haldol to 10 mg qid Plan: CV Q 15 minute checks -will give patient single room since easily provoked Continue?Abilify 30 mg q.h.s. Continue Clonidine 0.2 mg q.h.s. Continue Topamax 200 mg q.h.s. Increase to Haldol 10 mg t.i.d., up from b.i.d. Patient educated on: medication risk/benefits Informed Consent: understands Reason for continued inpatient stay Substantial Risk for: rapid decompensation Time Spent With Patient Time: Total time managing care of this patient today ____ minutes.
[2025-01-29 08:00] VITALS: BP 132/72; PULSE 68; RESP 16; TEMP 36.4; O2SAT 98
[2025-01-29] MEDS: HaloperidoL 5 MG TABLET 10 MG PO ×4 (08:58→20:28)
[2025-01-29 20:00] VITALS: BP 128/60; PULSE 66; RESP 16; TEMP 36.9; O2SAT 98
[2025-01-29] MEDS: cloNIDine HCL 0.2 MG TABLET PO (20:28)
[2025-01-29] MEDS: ARIPiprazole 30 MG TABLET PO (20:28)
[2025-01-29] MEDS: Topiramate 100 MG TABLET 200 MG PO (20:29)
[2025-01-30 07:53] VITALS: BP 116/59; PULSE 61; RESP 16; TEMP 36.6; O2SAT 99
--- NOTE | 2025-01-30 08:06 | HO.PSYCHPN ---
Subjective Subjective Date of Service: 01/30/25 Reason For Visit: Pyschosis Subjective Notes: Conditional Voluntary Healthcare Proxy: No Guardianship: No Medical Problems Affecting Mental Status: No Interim History: 24 yo who reports doing fine on current medications - provider asked if mother was going to take him home when he was only on PO medications- as he didn't want injectable- after speaking with provider pt went on raging at nursing about how his mother was controlling him - and he wanted to live on his own- went into his room slammed door- [facility] met with him and he calmed down- then came to nurse for 1pm med Medication Compliance: Yes Side effects from medications: No Attending Groups: Intermittent Review of Systems Acute medical concerns: No Medical Review of Systems: unchanged Mental Status Exam Mental Status Exam Patient Appearance: Well Grooomed and Appropriate Patient Orientation: Person, Place, Time and Situation Level of Consciousness: Awake and Alert Patient Behavior: Cooperative and Good Eye Contact Mood Description: Angry (when discussing mother with nursing) Affect Description: Labile Patient Cognition Impaired: No Ability to Follow Directions: Good Speech Pattern: Loud (at time of upset) Hallucinations: None Delusions: Present Thought Process: Intact and Goal Oriented Judgement: Fair Diagnostics Vital Signs (24Hr): Vital Signs - 24 hr 01/29/25 20:00 01/30/25 07:53 Temperature 98.5 F 97.9 F Pulse Rate 66 61 Respiratory Rate 16 16 Blood Pressure 128/60 116/59 L Pulse Oximetry 98 99 Oxygen Delivery Method Room Air Room Air BMI result Body Mass Index 42.0 Labs 01/20/25 17:28 01/22/25 07:39 Medications Medications Current Medications Acetaminophen (Acetaminophen 325 Mg Tablet) 650 mg PO Q6H PRN PRN Reason: Headache/Pain, Scale 1-10 Al Hydroxide/Mg Hydroxide (Magnesium Hydrox/Alum Hydrox 30 Ml Oral.Susp) 30 ml PO Q6H PRN PRN Reason: Heartburn/Nausea Aripiprazole (Aripiprazole 30 Mg Tablet) 30 mg PO BEDTIME EMILY Last Admin: 01/29/25 20:28 Dose: 30 mg Clonidine HCl (Clonidine Hcl 0.2 Mg Tablet) 0.2 mg PO BEDTIME EMILY; Protocol Last Admin: 01/29/25 20:28 Dose: 0.2 mg Haloperidol (Haloperidol 5 Mg Tablet) 10 mg PO QID EMILY Last Admin: 01/29/25 20:28 Dose: 10 mg Hydroxyzine HCl (Hydroxyzine Hcl 25 Mg Tablet) 25 mg PO Q6H PRN PRN Reason: mild anxiety Last Admin: 01/24/25 20:55 Dose: 25 mg Magnesium Hydroxide (Milk Of Magnesia 30 Ml Oral.Susp) 30 ml PO DAILY PRN PRN Reason: Constipation Last Admin: 01/28/25 21:48 Dose: 30 ml Nicotine (Nicotine 21 Mg Patch.Td24) 21 mg TRANSDERMA DAILY PRN PRN Reason: smoking cessation Olanzapine (Olanzapine 10 Mg Tablet) 10 mg PO TID PRN PRN Reason: agitation Sumatriptan Succinate (Sumatriptan Succinate 100 Mg Tablet) 100 mg PO DAILY PRN PRN Reason: migraine Topiramate (Topiramate 100 Mg Tablet) 200 mg PO BEDTIME EMILY Last Admin: 01/29/25 20:29 Dose: 200 mg Trazodone HCl (Trazodone Hcl 50 Mg Tablet) 50 mg PO BEDTIME MRX1 PRN PRN Reason: Insomnia Allergies Allergies Allergy/AdvReac Type Severity Reaction Status Date / Time paliperidone [From [employer]] Allergy Itching Verified 01/20/25 16:47 Assessment & Plan Assessment & Plan (1) Schizophrenia: Status: Acute Code(s): F20.9 - Schizophrenia, unspecified Plan Patient is a 24-year-old male with history of schizophrenia, off Invega Sustenna for about 3 months who presents with i.e. compensated psychotic symptoms and aggression. Patient is a poor historian. He initially says he does not know why his mother wanted him to come to the hospital. He quickly became angry at life insurance underwriter, starting to yell at life insurance underwriter, intense and starting to posture, including as life insurance underwriter walks away down the goodman I wanted different doctor... I do not trust you and that that life insurance underwriter is a shit doctor. Transfer Pumper needed to terminate conversation and get away from patient for safety. Earlier he got angry at a nurse and also swore at her. Mother provided some collateral to staff. Apparently patient has been stable since his hospitalization when he was 16 years old, benefitting from Invega Sustenna; he attended [employer] school and graduated. It is not clear if Invega Sustenna stopped working or he refused to take it but he has been decompensating over the past 3 months and has had to other recent hospitalizations. Mother says that he is scaring her and the neighbors;,paranoid and delusional frequently self dialoguing. Prior to coming to the hospital he tried to jump out of moving car. Formulation/clinical reasoning: Decompensated schizophrenia; either patient stopped taking Invega Sustenna or it stopped working. At the mentioned of the word Invega patient became extremely angry. However he was started on other medications (at other admission? ) which she is amenable to taking, including Abilify and Haldol so will continue these; life insurance underwriter will increase Haldol to 10 mg t.i.d., up from b.i.d.. -will give patient single room for safety of peers, since patient easily provoked Hospital course: 01/23 Patient seems to be more calm today. Guarded on approach and little to say to life insurance underwriter other than that he is doing all right and has no complaints or requests and says nothing is on his mind. Transfer Pumper left it there so as not to accidentally provoke. Patient taking prescribed medication. To nursing staff patient said I was tormented yesterday... 01/24 Continue plan/regime. 01/25 Suggested to pt a trial of Abilify [place] per his OP MD Dr. Feng Villa. He will consider. 01/26 Refuses all LILLY suggestions. 01/27 Continue regime/plan 01/28 Some breakthrough sx. Increase Haldol to 10 mg qid 01/30/25 - CTP Plan: CV Q 15 minute checks -will give patient single room since easily provoked Continue?Abilify 30 mg q.h.s. Continue Clonidine 0.2 mg q.h.s. Continue Topamax 200 mg q.h.s. Increase to Haldol 10 mg t.i.d., up from b.i.d. Patient educated on: medication risk/benefits Informed Consent: understands and further education needed Reason for continued inpatient stay Substantial Risk for: inability to function and rapid decompensation Time Spent With Patient Time: Total time managing care of this patient today ____ minutes.
[2025-01-30] MEDS: HaloperidoL 5 MG TABLET 10 MG PO ×4 (09:38→20:51)
[2025-01-30] MEDS: Milk of Magnesia 30 ML ORAL.SUSP PO (12:27)
[2025-01-30 20:00] VITALS: PULSE 61; RESP 15; TEMP 36.8; O2SAT 97
[2025-01-30 20:51] VITALS: BP 130/61
[2025-01-30] MEDS: cloNIDine HCL 0.2 MG TABLET PO (20:51)
[2025-01-30] MEDS: Topiramate 100 MG TABLET 200 MG PO (20:51)
[2025-01-30] MEDS: ARIPiprazole 30 MG TABLET PO (20:51)
[2025-01-30] MEDS: traZODone HCL 50 MG TABLET PO (20:52)
[2025-01-31 07:56] VITALS: BP 110/55; PULSE 53; RESP 16; TEMP 36.3; O2SAT 97
[2025-01-31] MEDS: HaloperidoL 5 MG TABLET 10 MG PO ×4 (08:09→21:23)
[2025-01-31] MEDS: Milk of Magnesia 30 ML ORAL.SUSP PO (17:16)
--- NOTE | 2025-01-31 17:21 | HO.PSYCHPN ---
Subjective Subjective Date of Service: 01/31/25 Reason For Visit: Pyschosis Subjective Notes: Conditional Voluntary Healthcare Proxy: No Guardianship: No Medical Problems Affecting Mental Status: No Interim History: Discussed with pt that in order to return to mother's home he would need to agree to return to [facility]. Pt declines this option, please call Shira and ask her to find me some housing. Medication Compliance: Yes Side effects from medications: No Attending Groups: Intermittent Review of Systems Acute medical concerns: No Review of Systems Review of Systems Denies Mental Status Exam Mental Status Exam Patient Appearance: Well Grooomed and Appropriate Patient Orientation: Person, Place, Time and Situation Level of Consciousness: Awake and Alert Patient Behavior: Cooperative and Good Eye Contact Mood Description: Angry (when discussing mother with nursing) Affect Description: Labile Patient Cognition Impaired: No Ability to Follow Directions: Good Speech Pattern: Loud (at time of upset) Hallucinations: None Delusions: Present Thought Process: Intact and Goal Oriented Judgement: Fair Diagnostics Vital Signs (24Hr): Vital Signs - 24 hr 01/30/25 20:00 01/30/25 20:51 01/31/25 07:56 Temperature 98.3 F 97.4 F Pulse Rate 61 53 Respiratory Rate 15 16 Blood Pressure 130/61 110/55 L Pulse Oximetry 97 97 Oxygen Delivery Method Room Air BMI result Body Mass Index 42.0 Labs 01/20/25 17:28 01/22/25 07:39 Medications Medications Current Medications Acetaminophen (Acetaminophen 325 Mg Tablet) 650 mg PO Q6H PRN PRN Reason: Headache/Pain, Scale 1-10 Al Hydroxide/Mg Hydroxide (Magnesium Hydrox/Alum Hydrox 30 Ml Oral.Susp) 30 ml PO Q6H PRN PRN Reason: Heartburn/Nausea Aripiprazole (Aripiprazole 30 Mg Tablet) 30 mg PO BEDTIME EMILY Last Admin: 01/30/25 20:51 Dose: 30 mg Clonidine HCl (Clonidine Hcl 0.2 Mg Tablet) 0.2 mg PO BEDTIME EMILY; Protocol Last Admin: 01/30/25 20:51 Dose: 0.2 mg Haloperidol (Haloperidol 5 Mg Tablet) 10 mg PO QID EMILY Last Admin: 01/31/25 17:15 Dose: 10 mg Haloperidol (Haloperidol 5 Mg Tablet) 10 mg PO BID PRN PRN Reason: psychosis/agitation Hydroxyzine HCl (Hydroxyzine Hcl 25 Mg Tablet) 25 mg PO Q6H PRN PRN Reason: mild anxiety Last Admin: 01/24/25 20:55 Dose: 25 mg Magnesium Hydroxide (Milk Of Magnesia 30 Ml Oral.Susp) 30 ml PO DAILY PRN PRN Reason: Constipation Last Admin: 01/31/25 17:16 Dose: 30 ml Nicotine (Nicotine 21 Mg Patch.Td24) 21 mg TRANSDERMA DAILY PRN PRN Reason: smoking cessation Olanzapine (Olanzapine 10 Mg Tablet) 10 mg PO TID PRN PRN Reason: agitation Sumatriptan Succinate (Sumatriptan Succinate 100 Mg Tablet) 100 mg PO DAILY PRN PRN Reason: migraine Topiramate (Topiramate 100 Mg Tablet) 200 mg PO BEDTIME EMILY Last Admin: 01/30/25 20:51 Dose: 200 mg Trazodone HCl (Trazodone Hcl 50 Mg Tablet) 50 mg PO BEDTIME MRX1 PRN PRN Reason: Insomnia Last Admin: 01/30/25 20:52 Dose: 50 mg Allergies Allergies Allergy/AdvReac Type Severity Reaction Status Date / Time paliperidone [From [employer]] Allergy Itching Verified 01/20/25 16:47 Assessment & Plan Assessment & Plan (1) Schizophrenia: Status: Acute Code(s): F20.9 - Schizophrenia, unspecified Plan Patient is a 24-year-old male with history of schizophrenia, off Invega Sustenna for about 3 months who presents with i.e. compensated psychotic symptoms and aggression. Patient is a poor historian. He initially says he does not know why his mother wanted him to come to the hospital. He quickly became angry at sign writer letterer or painter, starting to yell at sign writer letterer or painter, intense and starting to posture, including as sign writer letterer or painter walks away down the goodman I wanted different doctor... I do not trust you and that that sign writer letterer or painter is a shit doctor. Cephalometric Technician needed to terminate conversation and get away from patient for safety. Earlier he got angry at a nurse and also swore at her. Mother provided some collateral to staff. Apparently patient has been stable since his hospitalization when he was 16 years old, benefitting from Invega Sustenna; he attended [employer] and graduated. It is not clear if Invega Sustenna stopped working or he refused to take it but he has been decompensating over the past 3 months and has had to other recent hospitalizations. Mother says that he is scaring her and the neighbors;,paranoid and delusional frequently self dialoguing. Prior to coming to the hospital he tried to jump out of moving car. Formulation/clinical reasoning: Decompensated schizophrenia; either patient stopped taking Invega Sustenna or it stopped working. At the mentioned of the word Invega patient became extremely angry. However he was started on other medications (at other admission? ) which she is amenable to taking, including Abilify and Haldol so will continue these; sign writer letterer or painter will increase Haldol to 10 mg t.i.d., up from b.i.d.. -will give patient single room for safety of peers, since patient easily provoked Hospital course: 01/23 Patient seems to be more calm today. Guarded on approach and little to say to sign writer letterer or painter other than that he is doing all right and has no complaints or requests and says nothing is on his mind. Cephalometric Technician left it there so as not to accidentally provoke. Patient taking prescribed medication. To nursing staff patient said I was tormented yesterday... 01/24 Continue plan/regime. 01/25 Suggested to pt a trial of Abilifallyssa [place] per his OP MD Dr. Feng Villa. He will consider. 01/26 Refuses all LILLY suggestions. 01/27 Continue regime/plan 01/28 Some breakthrough sx. Increase Haldol to 10 mg qid 01/30/25 - CTP 01/31/25: Continue regime/plan Plan: CV Q 15 minute checks -will give patient single room since easily provoked Continue?Abilify 30 mg q.h.s. Continue Clonidine 0.2 mg q.h.s. Continue Topamax 200 mg q.h.s. Increase to Haldol 10 mg t.i.d., up from b.i.d. Reason for continued inpatient stay Substantial Risk for: rapid decompensation Time Spent With Patient Time: Total time managing care of this patient today ____ minutes.
[2025-01-31] MEDS: cloNIDine HCL 0.2 MG TABLET PO (21:23)
[2025-01-31] MEDS: ARIPiprazole 30 MG TABLET PO (21:23)
[2025-01-31] MEDS: traZODone HCL 50 MG TABLET PO (21:23)
[2025-01-31] MEDS: Topiramate 100 MG TABLET 200 MG PO (21:23)
[2025-02-01 08:00] VITALS: BP 106/55; PULSE 50; RESP 18; TEMP 36.6; O2SAT 98
[2025-02-01] MEDS: HaloperidoL 5 MG TABLET 10 MG PO ×4 (08:40→20:14)
--- NOTE | 2025-02-01 10:22 | HO.PSYCHPN ---
Subjective Subjective Date of Service: 02/01/25 Reason For Visit: Pyschosis Subjective Notes: Conditional Voluntary Healthcare Proxy: No Guardianship: No Medical Problems Affecting Mental Status: No Interim History: Pt continues to decline LILLY. Family reports he is not near baseline and express concern for his safety. [facility] reviewing his case for potential acceptance. Pt asking about discharge- my mother has no say in this. Medication Compliance: Yes Side effects from medications: No Attending Groups: Intermittent Review of Systems Acute medical concerns: No Review of Systems Review of Systems I feel fine Mental Status Exam Mental Status Exam Patient Appearance: Well Grooomed and Appropriate Patient Orientation: Person, Place, Time and Situation Level of Consciousness: Awake and Alert Patient Behavior: Cooperative and Good Eye Contact Mood Description: Labile and Blunted Affect Description: Labile Patient Cognition Impaired: No Ability to Follow Directions: Good Speech Pattern: Spontaneous Speech and Loud (at time of upset) Hallucinations: None Delusions: Present Thought Process: Intact and Goal Oriented Depressive Symptoms: Thoughts of /Suicide (denies) Judgement: Fair Diagnostics Vital Signs (24Hr): Vital Signs - 24 hr 02/01/25 08:00 Temperature 97.8 F Pulse Rate 50 Respiratory Rate 18 Blood Pressure 106/55 L Pulse Oximetry 98 Oxygen Delivery Method Room Air BMI result Body Mass Index 42.0 Labs 01/20/25 17:28 01/22/25 07:39 Medications Medications Current Medications Acetaminophen (Acetaminophen 325 Mg Tablet) 650 mg PO Q6H PRN PRN Reason: Headache/Pain, Scale 1-10 Al Hydroxide/Mg Hydroxide (Magnesium Hydrox/Alum Hydrox 30 Ml Oral.Susp) 30 ml PO Q6H PRN PRN Reason: Heartburn/Nausea Aripiprazole (Aripiprazole 30 Mg Tablet) 30 mg PO BEDTIME EMILY Last Admin: 01/31/25 21:23 Dose: 30 mg Clonidine HCl (Clonidine Hcl 0.2 Mg Tablet) 0.2 mg PO BEDTIME EMILY; Protocol Last Admin: 01/31/25 21:23 Dose: 0.2 mg Haloperidol (Haloperidol 5 Mg Tablet) 10 mg PO QID EMILY Last Admin: 02/01/25 08:40 Dose: 10 mg Haloperidol (Haloperidol 5 Mg Tablet) 10 mg PO BID PRN PRN Reason: psychosis/agitation Hydroxyzine HCl (Hydroxyzine Hcl 25 Mg Tablet) 25 mg PO Q6H PRN PRN Reason: mild anxiety Last Admin: 01/24/25 20:55 Dose: 25 mg Magnesium Hydroxide (Milk Of Magnesia 30 Ml Oral.Susp) 30 ml PO DAILY PRN PRN Reason: Constipation Last Admin: 01/31/25 17:16 Dose: 30 ml Nicotine (Nicotine 21 Mg Patch.Td24) 21 mg TRANSDERMA DAILY PRN PRN Reason: smoking cessation Olanzapine (Olanzapine 10 Mg Tablet) 10 mg PO TID PRN PRN Reason: agitation Sumatriptan Succinate (Sumatriptan Succinate 100 Mg Tablet) 100 mg PO DAILY PRN PRN Reason: migraine Topiramate (Topiramate 100 Mg Tablet) 200 mg PO BEDTIME EMILY Last Admin: 01/31/25 21:23 Dose: 200 mg Trazodone HCl (Trazodone Hcl 50 Mg Tablet) 50 mg PO BEDTIME MRX1 PRN PRN Reason: Insomnia Last Admin: 01/31/25 21:23 Dose: 50 mg Allergies Allergies Allergy/AdvReac Type Severity Reaction Status Date / Time paliperidone [From [facility]] Allergy Itching Verified 01/20/25 16:47 Assessment & Plan Assessment & Plan (1) Schizophrenia: Status: Acute Code(s): F20.9 - Schizophrenia, unspecified Plan Patient is a 24-year-old male with history of schizophrenia, off Invega Sustenna for about 3 months who presents with i.e. compensated psychotic symptoms and aggression. Patient is a poor historian. He initially says he does not know why his mother wanted him to come to the hospital. He quickly became angry at appeals writer, starting to yell at appeals writer, intense and starting to posture, including as appeals writer walks away down the goodman I wanted different doctor... I do not trust you and that that appeals writer is a shit doctor. Customer Professional needed to terminate conversation and get away from patient for safety. Earlier he got angry at a nurse and also swore at her. Mother provided some collateral to staff. Apparently patient has been stable since his hospitalization when he was 16 years old, benefitting from Invega Sustenna; he attended [employer] and graduated. It is not clear if Invega Sustenna stopped working or he refused to take it but he has been decompensating over the past 3 months and has had to other recent hospitalizations. Mother says that he is scaring her and the neighbors;,paranoid and delusional frequently self dialoguing. Prior to coming to the hospital he tried to jump out of moving car. Formulation/clinical reasoning: Decompensated schizophrenia; either patient stopped taking Invega Sustenna or it stopped working. At the mentioned of the word Invega patient became extremely angry. However he was started on other medications (at other admission? ) which she is amenable to taking, including Abilify and Haldol so will continue these; appeals writer will increase Haldol to 10 mg t.i.d., up from b.i.d.. -will give patient single room for safety of peers, since patient easily provoked Hospital course: 01/23 Patient seems to be more calm today. Guarded on approach and little to say to appeals writer other than that he is doing all right and has no complaints or requests and says nothing is on his mind. Customer Professional left it there so as not to accidentally provoke. Patient taking prescribed medication. To nursing staff patient said I was tormented yesterday... 01/24 Continue plan/regime. 01/25 Suggested to pt a trial of Abilifallyssa Bingham per his OP MD Dr. Feng Villa. He will consider. 01/26 Refuses all LILLY suggestions. 01/27 Continue regime/plan 01/28 Some breakthrough sx. Increase Haldol to 10 mg qid 01/30/25 - CTP 02/01/25- Continue regime/plan Plan: CV Q 15 minute checks -will give patient single room since easily provoked Continue?Abilify 30 mg q.h.s. Continue Clonidine 0.2 mg q.h.s. Continue Topamax 200 mg q.h.s. Increase to Haldol 10 mg t.i.d., up from b.i.d. Reason for continued inpatient stay Substantial Risk for: rapid decompensation Time Spent With Patient Time: Total time managing care of this patient today ____ minutes.
[2025-02-01] MEDS: Milk of Magnesia 30 ML ORAL.SUSP PO (14:40)
[2025-02-01] MEDS: Topiramate 100 MG TABLET 200 MG PO (20:14)
[2025-02-01] MEDS: cloNIDine HCL 0.2 MG TABLET PO (20:15)
[2025-02-01] MEDS: ARIPiprazole 30 MG TABLET PO (20:15)
[2025-02-02 08:00] VITALS: BP 135/84; PULSE 61; RESP 16; TEMP 36.4; O2SAT 100
[2025-02-02] MEDS: HaloperidoL 5 MG TABLET 10 MG PO ×4 (08:52→21:16)
--- NOTE | 2025-02-02 19:02 | P.PNPSI_ITS ---
Subjective Subjective Date of Service: 02/02/25 Reason For Visit: Pyschosis Subjective Notes: Conditional Voluntary Interim History: Pt wanting discharge. No placement options available. Long discussion with mother. Pt is not near a baseline-calls her at 430am, delusional, confrontive. If he were to return home she would need to quit her job as she does not feel safe leaving him alone. Asks if there are day program options. Pt reports he is at baseline, ready to leave, ready to live . Medication Compliance: Yes Side effects from medications: No Attending Groups: Intermittent Review of Systems Acute medical concerns: No Review of Systems Review of Systems Denies Mental Status Exam Mental Status Exam Patient Appearance: Well Grooomed and Appropriate Patient Orientation: Person, Place, Time and Situation Level of Consciousness: Awake and Alert Patient Behavior: Cooperative and Good Eye Contact Mood Description: Labile and Blunted Affect Description: Labile Patient Cognition Impaired: No Ability to Follow Directions: Good Speech Pattern: Spontaneous Speech and Loud (at time of upset) Hallucinations: None Delusions: Present Thought Process: Intact and Goal Oriented Depressive Symptoms: Thoughts of /Suicide (denies) Judgement: Fair Diagnostics Vital Signs (24Hr): Vital Signs - 24 hr 02/02/25 08:00 Temperature 97.5 F Pulse Rate 61 Respiratory Rate 16 Blood Pressure 135/84 Pulse Oximetry 100 Oxygen Delivery Method Room Air BMI result Body Mass Index 42.0 Labs 01/20/25 17:28 01/22/25 07:39 Medications Medications Current Medications Acetaminophen (Acetaminophen 325 Mg Tablet) 650 mg PO Q6H PRN PRN Reason: Headache/Pain, Scale 1-10 Al Hydroxide/Mg Hydroxide (Magnesium Hydrox/Alum Hydrox 30 Ml Oral.Susp) 30 ml PO Q6H PRN PRN Reason: Heartburn/Nausea Aripiprazole (Aripiprazole 30 Mg Tablet) 30 mg PO BEDTIME EMILY Last Admin: 02/01/25 20:15 Dose: 30 mg Clonidine HCl (Clonidine Hcl 0.2 Mg Tablet) 0.2 mg PO BEDTIME EMILY; Protocol Last Admin: 02/01/25 20:15 Dose: 0.2 mg Haloperidol (Haloperidol 5 Mg Tablet) 10 mg PO QID EMILY Last Admin: 02/02/25 16:38 Dose: 10 mg Haloperidol (Haloperidol 5 Mg Tablet) 10 mg PO BID PRN PRN Reason: psychosis/agitation Hydroxyzine HCl (Hydroxyzine Hcl 25 Mg Tablet) 25 mg PO Q6H PRN PRN Reason: mild anxiety Last Admin: 01/24/25 20:55 Dose: 25 mg Magnesium Hydroxide (Milk Of Magnesia 30 Ml Oral.Susp) 30 ml PO DAILY PRN PRN Reason: Constipation Last Admin: 02/01/25 14:40 Dose: 30 ml Nicotine (Nicotine 21 Mg Patch.Td24) 21 mg TRANSDERMA DAILY PRN PRN Reason: smoking cessation Olanzapine (Olanzapine 10 Mg Tablet) 10 mg PO TID PRN PRN Reason: agitation Sumatriptan Succinate (Sumatriptan Succinate 100 Mg Tablet) 100 mg PO DAILY PRN PRN Reason: migraine Topiramate (Topiramate 100 Mg Tablet) 200 mg PO BEDTIME EMILY Last Admin: 02/01/25 20:14 Dose: 200 mg Trazodone HCl (Trazodone Hcl 50 Mg Tablet) 50 mg PO BEDTIME MRX1 PRN PRN Reason: Insomnia Last Admin: 01/31/25 21:23 Dose: 50 mg Allergies Allergies Allergy/AdvReac Type Severity Reaction Status Date / Time paliperidone [From [facility]] Allergy Itching Verified 01/20/25 16:47 Assessment & Plan Assessment & Plan (1) Schizophrenia: Status: Acute Code(s): F20.9 - Schizophrenia, unspecified Plan Patient is a 24-year-old male with history of schizophrenia, off Invega Sustenna for about 3 months who presents with i.e. compensated psychotic symptoms and aggression. Patient is a poor historian. He initially says he does not know why his mother wanted him to come to the hospital. He quickly became angry at junior copywriter, starting to yell at junior copywriter, intense and starting to posture, including as junior copywriter walks away down the goodman I wanted different doctor... I do not trust you and that that junior copywriter is a shit doctor. Extractor Tender Raw Stock needed to terminate conversation and get away from patient for safety. Earlier he got angry at a nurse and also swore at her. Mother provided some collateral to staff. Apparently patient has been stable since his hospitalization when he was 16 years old, benefitting from Invega Sustenna; he attended [employer] and graduated. It is not clear if Invega Sustenna stopped working or he refused to take it but he has been decompensating over the past 3 months and has had to other recent hospitalizations. Mother says that he is scaring her and the neighbors;,paranoid and delusional frequently self dialoguing. Prior to coming to the hospital he tried to jump out of moving car. Formulation/clinical reasoning: Decompensated schizophrenia; either patient stopped taking Invega Sustenna or it stopped working. At the mentioned of the word Invega patient became extremely angry. However he was started on other medications (at other admission? ) which she is amenable to taking, including Abilify and Haldol so will continue these; junior copywriter will increase Haldol to 10 mg t.i.d., up from b.i.d.. -will give patient single room for safety of peers, since patient easily provoked Hospital course: 01/23 Patient seems to be more calm today. Guarded on approach and little to say to junior copywriter other than that he is doing all right and has no complaints or requests and says nothing is on his mind. Extractor Tender Raw Stock left it there so as not to accidentally provoke. Patient taking prescribed medication. To nursing staff patient said I was tormented yesterday... 01/24 Continue plan/regime. 01/25 Suggested to pt a trial of Abilify Maintena per his OP MD Dr. Feng Villa. He will consider. 01/26 Refuses all LILLY suggestions. 01/27 Continue regime/plan 01/28 Some breakthrough sx. Increase Haldol to 10 mg qid 01/30/25 - CTP 02/01/25- Continue regime/plan 02/02/26 On 02/03 increase Haldol to 30 mg bid (an increase of 20 mg) Plan: CV Q 15 minute checks -will give patient single room since easily provoked Continue?Abilify 30 mg q.h.s. Continue Clonidine 0.2 mg q.h.s. Continue Topamax 200 mg q.h.s. Increase to Haldol 10 mg t.i.d., up from b.i.d. Reason for continued inpatient stay Substantial Risk for: rapid decompensation Time Spent With Patient Time: Total time managing care of this patient today ____ minutes.
[2025-02-02] MEDS: ARIPiprazole 30 MG TABLET PO (21:16)
[2025-02-02] MEDS: Topiramate 100 MG TABLET 200 MG PO (21:16)
[2025-02-02] MEDS: traZODone HCL 50 MG TABLET PO (21:16)
[2025-02-02] MEDS: cloNIDine HCL 0.2 MG TABLET PO (21:16)
[2025-02-03 07:00] VITALS: BMI 41.7
[2025-02-03 08:00] VITALS: BP 129/63; PULSE 60; RESP 16; TEMP 36.4; O2SAT 100
[2025-02-03] MEDS: HaloperidoL 5 MG TABLET 30 MG PO (08:32)
--- NOTE | 2025-02-03 12:44 | P.PNPSI_ITS ---
Subjective Subjective Date of Service: 02/03/25 Reason For Visit: Pyschosis Subjective Notes: Conditional Voluntary Healthcare Proxy: No Guardianship: No Medical Problems Affecting Mental Status: No Interim History: Patient notes that he is feeling great? today. He denies anxiety, depression, or irritability. He denies SI/HI, AVH. He was in his room reading his Bible. Medication Compliance: Yes Side effects from medications: Yes Attending Groups: Yes Review of Systems Acute medical concerns: No Medical Review of Systems: unchanged Mental Status Exam Mental Status Exam Narrative: Mental Status Exam Narrative: Appearance: Casually dressed Behavior: Calm and cooperative throughout the interview. Eye contact is appropriate, and there are no signs of psychomotor agitation or retardation Speech: Normal volume and prosody Thought process logical and goal-directed Thought content: Future oriented no self-harming thoughts Mood: Great Affect: Constricted, mood-congruent SI:denies HI:denies VH/AH:none Delusions: None Insight/judgment: Good insight and judgment Memory/cog: Alert, oriented x 4. grossly intact to conversational testing Diagnostics Vital Signs (24Hr): Vital Signs - 24 hr 02/03/25 08:00 Temperature 97.6 F Pulse Rate 60 Respiratory Rate 16 Blood Pressure 129/63 Pulse Oximetry 100 Oxygen Delivery Method Room Air BMI result Body Mass Index 41.7 Labs 01/20/25 17:28 01/22/25 07:39 Medications Medications Current Medications Acetaminophen (Acetaminophen 325 Mg Tablet) 650 mg PO Q6H PRN PRN Reason: Headache/Pain, Scale 1-10 Al Hydroxide/Mg Hydroxide (Magnesium Hydrox/Alum Hydrox 30 Ml Oral.Susp) 30 ml PO Q6H PRN PRN Reason: Heartburn/Nausea Aripiprazole (Aripiprazole 30 Mg Tablet) 30 mg PO BEDTIME EMILY Last Admin: 02/02/25 21:16 Dose: 30 mg Clonidine HCl (Clonidine Hcl 0.2 Mg Tablet) 0.2 mg PO BEDTIME EMILY; Protocol Last Admin: 02/02/25 21:16 Dose: 0.2 mg Haloperidol (Haloperidol 5 Mg Tablet) 10 mg PO BID PRN PRN Reason: psychosis/agitation Haloperidol (Haloperidol 5 Mg Tablet) 25 mg PO BID EMILY Hydroxyzine HCl (Hydroxyzine Hcl 25 Mg Tablet) 25 mg PO Q6H PRN PRN Reason: mild anxiety Last Admin: 04/28/25 20:55 Dose: 25 mg Magnesium Hydroxide (Milk Of Magnesia 30 Ml Oral.Susp) 30 ml PO DAILY PRN PRN Reason: Constipation Last Admin: 02/01/25 14:40 Dose: 30 ml Nicotine (Nicotine 21 Mg Patch.Td24) 21 mg TRANSDERMA DAILY PRN PRN Reason: smoking cessation Olanzapine (Olanzapine 10 Mg Tablet) 10 mg PO TID PRN PRN Reason: agitation Sumatriptan Succinate (Sumatriptan Succinate 100 Mg Tablet) 100 mg PO DAILY PRN PRN Reason: migraine Topiramate (Topiramate 100 Mg Tablet) 200 mg PO BEDTIME EMILY Last Admin: 02/02/25 21:16 Dose: 200 mg Trazodone HCl (Trazodone Hcl 50 Mg Tablet) 50 mg PO BEDTIME MRX1 PRN PRN Reason: Insomnia Last Admin: 02/02/25 21:16 Dose: 50 mg Allergies Allergies Allergy/AdvReac Type Severity Reaction Status Date / Time paliperidone [From [employer]] Allergy Itching Verified 01/20/25 16:47 Assessment & Plan Assessment & Plan (1) Schizophrenia: Status: Acute Code(s): F20.9 - Schizophrenia, unspecified Plan Patient is a 24-year-old male with history of schizophrenia, off Invega Sustenna for about 3 months who presents with i.e. compensated psychotic symptoms and aggression. Patient is a poor historian. He initially says he does not know why his mother wanted him to come to the hospital. He quickly became angry at data analyst report writer, starting to yell at data analyst report writer, intense and starting to posture, including as data analyst report writer walks away down the goodman I wanted different doctor... I do not trust you and that that data analyst report writer is a shit doctor. Audience Development Manager needed to terminate conversation and get away from patient for safety. Earlier he got angry at a nurse and also swore at her. Mother provided some collateral to staff. Apparently patient has been stable since his hospitalization when he was 16 years old, benefitting from Invega Sustenna; he attended [employer] school and graduated. It is not clear if Invega Sustenna stopped working or he refused to take it but he has been decompensating over the past 3 months and has had to other recent hospitalizations. Mother says that he is scaring her and the neighbors;,paranoid and delusional frequently self dialoguing. Prior to coming to the hospital he tried to jump out of moving car. Formulation/clinical reasoning: Decompensated schizophrenia; either patient stopped taking Invega Sustenna or it stopped working. At the mentioned of the word Invega patient became extremely angry. However he was started on other medications (at other admission? ) which she is amenable to taking, including Abilify and Haldol so will continue these; data analyst report writer will increase Haldol to 10 mg t.i.d., up from b.i.d.. -will give patient single room for safety of peers, since patient easily provoked Hospital course: 01/23 Patient seems to be more calm today. Guarded on approach and little to say to data analyst report writer other than that he is doing all right and has no complaints or requests and says nothing is on his mind. Audience Development Manager left it there so as not to accidentally provoke. Patient taking prescribed medication. To nursing staff patient said I was tormented yesterday... 01/24 Continue plan/regime. 01/25 Suggested to pt a trial of Allie Bingham per his OP MD Dr. Feng Villa. He will consider. 01/26 Refuses all LILLY suggestions. 01/27 Continue regime/plan 01/28 Some breakthrough sx. Increase Haldol to 10 mg qid 01/30/25 - CTP 02/01/25- Continue regime/plan 02/02/26 On 02/03 increase Haldol to 30 mg bid (an increase of 20 mg) 02/03/25- continue regime/plan Plan: CV Q 15 minute checks -will give patient single room since easily provoked Continue?Abilify 30 mg q.h.s. Continue Clonidine 0.2 mg q.h.s. Continue Topamax 200 mg q.h.s. Increase to Haldol 10 mg t.i.d., up from b.i.d. Patient educated on: therapeutic strategies Guardian/Caregiver educated on: therapeutic strategies Informed Consent: understands Reason for continued inpatient stay Substantial Risk for: rapid decompensation Time Spent With Patient Time: Total time managing care of this patient today ____ minutes.
--- NOTE | 2025-02-03 18:16 | PC.NURSE ---
Pt had a visit from his plater helper today. Porter reported this visit went well, he stated He told me not to take the shot and if I didnt I could go live with him in [place] . He told me my mom is just trying to control me. Im a grown man, Im not a bum ass na. My mom is a b*tch. F*ck her, Im never going back home . Pt was also told by a male peer he should not take IM medication and that would get him out of here faster. Pt became agitated, pacing the halls, yelling profanities about his mother trying to control his life. Pt remained in behavioral control but continued to assert that he was a grown ass man and no one could tell him what to do.
[2025-02-03] MEDS: HaloperidoL 5 MG TABLET 25 MG PO (20:45)
[2025-02-03] MEDS: cloNIDine HCL 0.2 MG TABLET PO (20:45)
[2025-02-03] MEDS: ARIPiprazole 30 MG TABLET PO (20:45)
[2025-02-03] MEDS: traZODone HCL 50 MG TABLET PO (20:46)
[2025-02-03] MEDS: Topiramate 100 MG TABLET 200 MG PO (20:46)
[2025-02-04 08:00] VITALS: BP 108/60; PULSE 57; RESP 16; TEMP 37; O2SAT 96
[2025-02-04] MEDS: HaloperidoL 5 MG TABLET 25 MG PO ×2 (08:28→20:56)
--- NOTE | 2025-02-04 10:05 | HO.PSYCHPN ---
Subjective Subjective Date of Service: 02/03/25 Reason For Visit: Pyschosis Subjective Notes: Conditional Voluntary Healthcare Proxy: No Guardianship: No Medical Problems Affecting Mental Status: No Interim History: Porter reports feeling well. He asks to discharge. He has intermittent agitation. Haldol was increased 5/7 which is tolerated, he reports is effective, however he appears more sedate today. Will decrease dose to 25 mg bid from 30 mg bid. Thank you for being careful with my medicine . Family has visited. All agree pt is not at a baseline. Today, family's anode worker will visit and encourage pt to return to his L[facility]Y. Per DDS report to team, one of the pastors pt is connected to had encouraged him to stop medications. Pt's mom asked their anode worker to talk with pt about this opinion as pt reports he feels it is against God's will to have an injection as it is aggression against one's body. Pt is willing to talk about this with his anode worker however. Medication Compliance: Yes Side effects from medications: Yes (appears more sedate this a.m.) Attending Groups: Intermittent Review of Systems Review of Systems Denies today Mental Status Exam Mental Status Exam Patient Appearance: Well Grooomed and Appropriate Patient Orientation: Person, Place, Time and Situation Level of Consciousness: Awake and Alert Patient Behavior: Cooperative and Good Eye Contact Mood Description: Labile and Blunted Affect Description: Labile Patient Cognition Impaired: No Ability to Follow Directions: Good Speech Pattern: Spontaneous Speech and Soft-Spoken Hallucinations: None Delusions: Present Thought Process: Intact and Goal Oriented Depressive Symptoms: Thoughts of /Suicide (denies) Judgement: Fair Diagnostics Vital Signs (24Hr): Vital Signs - 24 hr 02/04/25 08:00 Temperature 98.6 F Pulse Rate 57 Respiratory Rate 16 Blood Pressure 108/60 Pulse Oximetry 96 Oxygen Delivery Method Room Air BMI result Body Mass Index 41.7 Labs 01/20/25 17:28 01/22/25 07:39 Medications Medications Current Medications Acetaminophen (Acetaminophen 325 Mg Tablet) 650 mg PO Q6H PRN PRN Reason: Headache/Pain, Scale 1-10 Al Hydroxide/Mg Hydroxide (Magnesium Hydrox/Alum Hydrox 30 Ml Oral.Susp) 30 ml PO Q6H PRN PRN Reason: Heartburn/Nausea Aripiprazole (Aripiprazole 30 Mg Tablet) 30 mg PO BEDTIME EMILY Last Admin: 02/03/25 20:45 Dose: 30 mg Clonidine HCl (Clonidine Hcl 0.2 Mg Tablet) 0.2 mg PO BEDTIME EMILY; Protocol Last Admin: 02/03/25 20:45 Dose: 0.2 mg Haloperidol (Haloperidol 5 Mg Tablet) 10 mg PO BID PRN PRN Reason: psychosis/agitation Haloperidol (Haloperidol 5 Mg Tablet) 25 mg PO BID EMILY Last Admin: 02/04/25 08:28 Dose: 25 mg Hydroxyzine HCl (Hydroxyzine Hcl 25 Mg Tablet) 25 mg PO Q6H PRN PRN Reason: mild anxiety Last Admin: 01/24/25 20:55 Dose: 25 mg Magnesium Hydroxide (Milk Of Magnesia 30 Ml Oral.Susp) 30 ml PO DAILY PRN PRN Reason: Constipation Last Admin: 02/01/25 14:40 Dose: 30 ml Nicotine (Nicotine 21 Mg Patch.Td24) 21 mg TRANSDERMA DAILY PRN PRN Reason: smoking cessation Olanzapine (Olanzapine 10 Mg Tablet) 10 mg PO TID PRN PRN Reason: agitation Sumatriptan Succinate (Sumatriptan Succinate 100 Mg Tablet) 100 mg PO DAILY PRN PRN Reason: migraine Topiramate (Topiramate 100 Mg Tablet) 200 mg PO BEDTIME EMILY Last Admin: 02/03/25 20:46 Dose: 200 mg Trazodone HCl (Trazodone Hcl 50 Mg Tablet) 50 mg PO BEDTIME MRX1 PRN PRN Reason: Insomnia Last Admin: 02/03/25 20:46 Dose: 50 mg Allergies Allergies Allergy/AdvReac Type Severity Reaction Status Date / Time paliperidone [From Invega] Allergy Itching Verified 01/20/25 16:47 Assessment & Plan Assessment & Plan (1) Schizophrenia: Status: Acute Code(s): F20.9 - Schizophrenia, unspecified Plan Patient is a 24-year-old male with history of schizophrenia, off Invega Sustenna for about 3 months who presents with i.e. compensated psychotic symptoms and aggression. Patient is a poor historian. He initially says he does not know why his mother wanted him to come to the hospital. He quickly became angry at teletypewriter installer, starting to yell at teletypewriter installer, intense and starting to posture, including as teletypewriter installer walks away down the goodman I wanted different doctor... I do not trust you and that that teletypewriter installer is a shit doctor. Brick Wheeler needed to terminate conversation and get away from patient for safety. Earlier he got angry at a nurse and also swore at her. Mother provided some collateral to staff. Apparently patient has been stable since his hospitalization when he was 16 years old, benefitting from Invcassidy Ponce; he attended [email or web address] school and graduated. It is not clear if Lita Ponce stopped working or he refused to take it but he has been decompensating over the past 3 months and has had to other recent hospitalizations. Mother says that he is scaring her and the neighbors;,paranoid and delusional frequently self dialoguing. Prior to coming to the hospital he tried to jump out of moving car. Formulation/clinical reasoning: Decompensated schizophrenia; either patient stopped taking Invega Rosario or it stopped working. At the mentioned of the word Invega patient became extremely angry. However he was started on other medications (at other admission? ) which she is amenable to taking, including Abilify and Haldol so will continue these; teletypewriter installer will increase Haldol to 10 mg t.i.d., up from b.i.d.. -will give patient single room for safety of peers, since patient easily provoked Hospital course: 01/23 Patient seems to be more calm today. Guarded on approach and little to say to teletypewriter installer other than that he is doing all right and has no complaints or requests and says nothing is on his mind. Brick Wheeler left it there so as not to accidentally provoke. Patient taking prescribed medication. To nursing staff patient said I was tormented yesterday... 01/24 Continue plan/regime. 01/25 Suggested to pt a trial of Abilifallyssa Bingham per his OP MD Dr. Feng Villa. He will consider. 01/26 Refuses all LILLY suggestions. 01/27 Continue regime/plan 01/28 Some breakthrough sx. Increase Haldol to 10 mg qid 01/30/25 - CTP 02/01/25- Continue regime/plan 02/02/26 On 02/03 increase Haldol to 30 mg bid (an increase of 20 mg) 02/03/25- continue regime/plan Plan: CV Q 15 minute checks -will give patient single room since easily provoked Continue?Abilify 30 mg q.h.s. Continue Clonidine 0.2 mg q.h.s. Continue Topamax 200 mg q.h.s. Increase to Haldol 10 mg t.i.d., up from b.i.d. Reason for continued inpatient stay Substantial Risk for: rapid decompensation Time Spent With Patient Time: Total time managing care of this patient today ____ minutes.
[2025-02-04 20:00] VITALS: BP 131/83; PULSE 77; RESP 15; TEMP 36.8; O2SAT 98
[2025-02-04] MEDS: Topiramate 100 MG TABLET 200 MG PO (20:57)
[2025-02-04] MEDS: traZODone HCL 50 MG TABLET PO (20:57)
[2025-02-04] MEDS: ARIPiprazole 30 MG TABLET PO (20:57)
[2025-02-04] MEDS: cloNIDine HCL 0.2 MG TABLET PO (20:57)
--- NOTE | 2025-02-05 07:29 | P.PNPSI_ITS ---
Subjective Subjective Date of Service: 02/05/25 Reason For Visit: Pyschosis Subjective Notes: Conditional Voluntary Interim History: Pt seen and reviewed with the team. He reports feeling well. He is interactive and initiates discussion with team and peers. Resting when seen. Denies feeling overmedicated, denies sx of depression or anxiety. Mood is without lability or dyscontrol in the milieu, although peer changes have quieted the milieu. Denies appetite or sleep disturbance No psychotic content Discussed wanting a therapist upon discharge Reports he has no interest in living with his mother- I think, she has chosen other men over me before-that is my sign to move on and live an independent life . I am grown now. Medication Compliance: Yes Side effects from medications: No Attending Groups: Yes Review of Systems Acute medical concerns: No Review of Systems Review of Systems Denies Mental Status Exam Mental Status Exam Patient Appearance: Well Grooomed and Appropriate Patient Orientation: Person, Place, Time and Situation Level of Consciousness: Awake and Alert Patient Behavior: Cooperative and Good Eye Contact Mood Description: Blunted Affect Description: Blunted Patient Cognition Impaired: No Ability to Follow Directions: Good Speech Pattern: Spontaneous Speech and Soft-Spoken Hallucinations: None Delusions: Not Present Thought Process: Intact and Goal Oriented Depressive Symptoms: Thoughts of /Suicide (denies) Judgement: Fair Diagnostics Vital Signs (24Hr): Vital Signs - 24 hr 02/04/25 08:00 02/04/25 20:00 Temperature 98.6 F 98.2 F Pulse Rate 57 77 Respiratory Rate 16 15 Blood Pressure 108/60 131/83 Pulse Oximetry 96 98 Oxygen Delivery Method Room Air BMI result Body Mass Index 41.7 Labs 01/20/25 17:28 01/22/25 07:39 Medications Medications Current Medications Acetaminophen (Acetaminophen 325 Mg Tablet) 650 mg PO Q6H PRN PRN Reason: Headache/Pain, Scale 1-10 Al Hydroxide/Mg Hydroxide (Magnesium Hydrox/Alum Hydrox 30 Ml Oral.Susp) 30 ml PO Q6H PRN PRN Reason: Heartburn/Nausea Aripiprazole (Aripiprazole 30 Mg Tablet) 30 mg PO BEDTIME EMILY Last Admin: 02/04/25 20:57 Dose: 30 mg Clonidine HCl (Clonidine Hcl 0.2 Mg Tablet) 0.2 mg PO BEDTIME EMILY; Protocol Last Admin: 02/04/25 20:57 Dose: 0.2 mg Haloperidol (Haloperidol 5 Mg Tablet) 10 mg PO BID PRN PRN Reason: psychosis/agitation Haloperidol (Haloperidol 5 Mg Tablet) 25 mg PO BID EMILY Last Admin: 02/04/25 20:56 Dose: 25 mg Hydroxyzine HCl (Hydroxyzine Hcl 25 Mg Tablet) 25 mg PO Q6H PRN PRN Reason: mild anxiety Last Admin: 01/24/25 20:55 Dose: 25 mg Magnesium Hydroxide (Milk Of Magnesia 30 Ml Oral.Susp) 30 ml PO DAILY PRN PRN Reason: Constipation Last Admin: 02/01/25 14:40 Dose: 30 ml Nicotine (Nicotine 21 Mg Patch.Td24) 21 mg TRANSDERMA DAILY PRN PRN Reason: smoking cessation Olanzapine (Olanzapine 10 Mg Tablet) 10 mg PO TID PRN PRN Reason: agitation Sumatriptan Succinate (Sumatriptan Succinate 100 Mg Tablet) 100 mg PO DAILY PRN PRN Reason: migraine Topiramate (Topiramate 100 Mg Tablet) 200 mg PO BEDTIME EMILY Last Admin: 02/04/25 20:57 Dose: 200 mg Trazodone HCl (Trazodone Hcl 50 Mg Tablet) 50 mg PO BEDTIME MRX1 PRN PRN Reason: Insomnia Last Admin: 02/04/25 20:57 Dose: 50 mg Allergies Allergies Allergy/AdvReac Type Severity Reaction Status Date / Time paliperidone [From Invega] Allergy Itching Verified 01/20/25 16:47 Assessment & Plan Assessment & Plan (1) Schizophrenia: Status: Acute Code(s): F20.9 - Schizophrenia, unspecified Plan Patient is a 24-year-old male with history of schizophrenia, off Invega Sustenna for about 3 months who presents with i.e. compensated psychotic symptoms and aggression. Patient is a poor historian. He initially says he does not know why his mother wanted him to come to the hospital. He quickly became angry at junior technical writer, starting to yell at junior technical writer, intense and starting to posture, including as junior technical writer walks away down the goodman I wanted different doctor... I do not trust you and that that junior technical writer is a shit doctor. Handbook Writer needed to terminate conversation and get away from patient for safety. Earlier he got angry at a nurse and also swore at her. Mother provided some collateral to staff. Apparently patient has been stable since his hospitalization when he was 16 years old, benefitting from Invega Sustenna; he attended [employer] school and graduated. It is not clear if Lita Ponce stopped working or he refused to take it but he has been decompensating over the past 3 months and has had to other recent hospitalizations. Mother says that he is scaring her and the neighbors;,paranoid and delusional frequently self dialoguing. Prior to coming to the hospital he tried to jump out of moving car. Formulation/clinical reasoning: Decompensated schizophrenia; either patient stopped taking Lita Ponce or it stopped working. At the mentioned of the word Lita patient became extremely angry. However he was started on other medications (at other admission? ) which she is amenable to taking, including Abilify and Haldol so will continue these; junior technical writer will increase Haldol to 10 mg t.i.d., up from b.i.d.. -will give patient single room for safety of peers, since patient easily provoked Hospital course: 01/23 Patient seems to be more calm today. Guarded on approach and little to say to junior technical writer other than that he is doing all right and has no complaints or requests and says nothing is on his mind. Handbook Writer left it there so as not to accidentally provoke. Patient taking prescribed medication. To nursing staff patient said I was tormented yesterday... 01/24 Continue plan/regime. 01/25 Suggested to pt a trial of Abilifallyssa Domingueza per his OP MD Dr. Feng Villa. He will consider. 01/26 Refuses all LILLY suggestions. 01/27 Continue regime/plan 01/28 Some breakthrough sx. Increase Haldol to 10 mg qid 01/30/25 - CTP 02/01/25- Continue regime/plan 02/02/26 On 02/03 increase Haldol to 30 mg bid (an increase of 20 mg) 02/03/25- continue regime/plan 02/05/25- continue regime/plan Plan: CV Q 15 minute checks -will give patient single room since easily provoked Continue?Abilify 30 mg q.h.s. Continue Clonidine 0.2 mg q.h.s. Continue Topamax 200 mg q.h.s. Increase to Haldol 10 mg t.i.d., up from b.i.d. Reason for continued inpatient stay Substantial Risk for: rapid decompensation Time Spent With Patient Time: Total time managing care of this patient today ____ minutes.
[2025-02-05 08:00] VITALS: BP 123/59; PULSE 53; RESP 16; TEMP 36.7; O2SAT 98
[2025-02-05] MEDS: HaloperidoL 5 MG TABLET 25 MG PO ×2 (10:45→20:22)
[2025-02-05 20:00] VITALS: BP 121/61; PULSE 64; RESP 15; TEMP 36.4; O2SAT 99
[2025-02-05] MEDS: traZODone HCL 50 MG TABLET PO (20:23)
[2025-02-05] MEDS: cloNIDine HCL 0.2 MG TABLET PO (20:23)
[2025-02-05] MEDS: ARIPiprazole 30 MG TABLET PO (20:23)
[2025-02-05] MEDS: Topiramate 100 MG TABLET 200 MG PO (20:23)
--- NOTE | 2025-02-06 05:47 | HO.PSYCHPN ---
Subjective Subjective Date of Service: 02/06/25 Reason For Visit: Pyschosis Subjective Notes: Conditional Voluntary Interim History: Pt seen, discussed with the team Reports constipation, dulcolax ordered. Will get updated labs 02/07- CBCD, CMP, A1C, Lipids Porter is visable, interactive, approachable, asks questions and overall is more engaged today. He is attending groups today and finds them helpful he reports. He denies medicine SE, denies feeling overmedicated Medication Compliance: Yes Side effects from medications: No Attending Groups: Yes Review of Systems Acute medical concerns: No Review of Systems Review of Systems I am feeling good . Mental Status Exam Mental Status Exam Patient Appearance: Well Grooomed and Appropriate Patient Orientation: Person, Place, Time and Situation Level of Consciousness: Awake and Alert Patient Behavior: Cooperative and Good Eye Contact Mood Description: Blunted Affect Description: Blunted Patient Cognition Impaired: No Ability to Follow Directions: Good Speech Pattern: Spontaneous Speech and Soft-Spoken Hallucinations: None Delusions: Not Present Thought Process: Intact and Goal Oriented Depressive Symptoms: Thoughts of /Suicide (denies) Judgement: Fair Diagnostics Vital Signs (24Hr): Vital Signs - 24 hr 02/05/25 08:00 02/05/25 20:00 Temperature 98.1 F 97.6 F Pulse Rate 53 64 Respiratory Rate 16 15 Blood Pressure 123/59 L 121/61 Pulse Oximetry 98 99 Oxygen Delivery Method Room Air BMI result Body Mass Index 41.7 Labs 01/20/25 17:28 01/22/25 07:39 Medications Medications Current Medications Acetaminophen (Acetaminophen 325 Mg Tablet) 650 mg PO Q6H PRN PRN Reason: Headache/Pain, Scale 1-10 Al Hydroxide/Mg Hydroxide (Magnesium Hydrox/Alum Hydrox 30 Ml Oral.Susp) 30 ml PO Q6H PRN PRN Reason: Heartburn/Nausea Aripiprazole (Aripiprazole 30 Mg Tablet) 30 mg PO BEDTIME EMILY Last Admin: 02/05/25 20:23 Dose: 30 mg Clonidine HCl (Clonidine Hcl 0.2 Mg Tablet) 0.2 mg PO BEDTIME EMILY; Protocol Last Admin: 02/05/25 20:23 Dose: 0.2 mg Haloperidol (Haloperidol 5 Mg Tablet) 10 mg PO BID PRN PRN Reason: psychosis/agitation Haloperidol (Haloperidol 5 Mg Tablet) 25 mg PO BID EMILY Last Admin: 02/05/25 20:22 Dose: 25 mg Hydroxyzine HCl (Hydroxyzine Hcl 25 Mg Tablet) 25 mg PO Q6H PRN PRN Reason: mild anxiety Last Admin: 01/24/25 20:55 Dose: 25 mg Magnesium Hydroxide (Milk Of Magnesia 30 Ml Oral.Susp) 30 ml PO DAILY PRN PRN Reason: Constipation Last Admin: 02/01/25 14:40 Dose: 30 ml Nicotine (Nicotine 21 Mg Patch.Td24) 21 mg TRANSDERMA DAILY PRN PRN Reason: smoking cessation Olanzapine (Olanzapine 10 Mg Tablet) 10 mg PO TID PRN PRN Reason: agitation Sumatriptan Succinate (Sumatriptan Succinate 100 Mg Tablet) 100 mg PO DAILY PRN PRN Reason: migraine Topiramate (Topiramate 100 Mg Tablet) 200 mg PO BEDTIME EMILY Last Admin: 02/05/25 20:23 Dose: 200 mg Trazodone HCl (Trazodone Hcl 50 Mg Tablet) 50 mg PO BEDTIME MRX1 PRN PRN Reason: Insomnia Last Admin: 02/05/25 20:23 Dose: 50 mg Allergies Allergies Allergy/AdvReac Type Severity Reaction Status Date / Time paliperidone [From HOLLR] Allergy Itching Verified 01/20/25 16:47 Assessment & Plan Assessment & Plan (1) Schizophrenia: Status: Acute Code(s): F20.9 - Schizophrenia, unspecified Plan Patient is a 24-year-old male with history of schizophrenia, off Invega Sustenna for about 3 months who presents with i.e. compensated psychotic symptoms and aggression. Patient is a poor historian. He initially says he does not know why his mother wanted him to come to the hospital. He quickly became angry at junior technical writer, starting to yell at junior technical writer, intense and starting to posture, including as junior technical writer walks away down the goodman I wanted different doctor... I do not trust you and that that junior technical writer is a shit doctor. Load Haul Dump Operator needed to terminate conversation and get away from patient for safety. Earlier he got angry at a nurse and also swore at her. Mother provided some collateral to staff. Apparently patient has been stable since his hospitalization when he was 16 years old, benefitting from Invega Sustenna; he attended [employer] school and graduated. It is not clear if Invega Steffenna stopped working or he refused to take it but he has been decompensating over the past 3 months and has had to other recent hospitalizations. Mother says that he is scaring her and the neighbors;,paranoid and delusional frequently self dialoguing. Prior to coming to the hospital he tried to jump out of moving car. Formulation/clinical reasoning: Decompensated schizophrenia; either patient stopped taking Invega Sustenna or it stopped working. At the mentioned of the word Invega patient became extremely angry. However he was started on other medications (at other admission? ) which she is amenable to taking, including Abilify and Haldol so will continue these; junior technical writer will increase Haldol to 10 mg t.i.d., up from b.i.d.. -will give patient single room for safety of peers, since patient easily provoked Hospital course: 01/23 Patient seems to be more calm today. Guarded on approach and little to say to junior technical writer other than that he is doing all right and has no complaints or requests and says nothing is on his mind. Load Haul Dump Operator left it there so as not to accidentally provoke. Patient taking prescribed medication. To nursing staff patient said I was tormented yesterday... 01/24 Continue plan/regime. 01/25 Suggested to pt a trial of Abilify Alberto[place] per his OP MD Dr. Feng Villa. He will consider. 01/26 Refuses all LILLY suggestions. 01/27 Continue regime/plan 01/28 Some breakthrough sx. Increase Haldol to 10 mg qid 01/30/25 - CTP 02/01/25- Continue regime/plan 02/02/26 On 02/03 increase Haldol to 30 mg bid (an increase of 20 mg) 02/03/25- continue regime/plan 02/06- Continue tx Plan: CV Q 15 minute checks -will give patient single room since easily provoked Continue?Abilify 30 mg q.h.s. Continue Clonidine 0.2 mg q.h.s. Continue Topamax 200 mg q.h.s. Increase to Haldol 10 mg t.i.d., up from b.i.d. Reason for continued inpatient stay Substantial Risk for: rapid decompensation Time Spent With Patient Time: Total time managing care of this patient today ____ minutes.
[2025-02-06 08:00] VITALS: BP 117/61; PULSE 52; RESP 16; TEMP 36.4; O2SAT 98
[2025-02-06] MEDS: HaloperidoL 5 MG TABLET 25 MG PO ×2 (08:54→20:22)
[2025-02-06] MEDS: Milk of Magnesia 30 ML ORAL.SUSP PO (09:54)
[2025-02-06] MEDS: bisacodyL 5 MG TABLET.DR 10 MG PO (16:58)
[2025-02-06 20:00] VITALS: BP 119/70; PULSE 91; RESP 15; TEMP 36.4; O2SAT 99
[2025-02-06] MEDS: cloNIDine HCL 0.2 MG TABLET PO (20:23)
[2025-02-06] MEDS: ARIPiprazole 30 MG TABLET PO (20:24)
[2025-02-06] MEDS: traZODone HCL 50 MG TABLET PO (20:24)
[2025-02-06] MEDS: Topiramate 100 MG TABLET 200 MG PO (20:24)
[2025-02-07 08:00] VITALS: BP 105/51; PULSE 54; RESP 16; TEMP 36.8; O2SAT 98
[2025-02-07] MEDS: HaloperidoL 5 MG TABLET 25 MG PO ×2 (08:17→19:49)
[2025-02-07 08:50] LABS: MANUAL DIFF FLAG NO
[2025-02-07 08:53] LABS: Basophils Percent Auto 0.6 % (0-2); Eosinophils Absolute Auto 0.1 X10*3/uL (0.0-0.4); Eosinophils Percent Auto 1.5 % (0-4); Hemoglobin 16.9 g/dl (14.0-18.0); Imm Gran Abs Auto 0.01 X10*3/uL (0.00-0.03); Imm Gran Pct Auto 0.2 % (0.0-0.4); Lymphocytes Absolute Auto 2.5 X10*3/uL (1.2-4.9); Lymphocytes Percent Auto 51.1 % (20-40); Mean Corpuscular HGB Conc 33.8 g/dl (31.0-36.0); Mean Corpuscular Hemoglobin 30.5 pg (27.0-33.0); Mean Corpuscular Volume 90.1 fL (80.0-98.0); Monocytes Absolute Auto 0.5 X10*3/uL (0.1-1.2); Monocytes Percent Auto 9.8 % (2-11); Neutrophils Absolute Auto 1.8 x10*3/uL (2.0-8.3); Neutrophils Percent Auto 36.8 % (45-73); Platelet Count 210 X10*3/uL (160-400); Red Blood Count 5.55 X10*6/uL (4.60-5.80); Red Cell Distribution Width 13.9 % (11.0-16.0); White Blood Count 4.8 X10*3/uL (4.8-10.8)
[2025-02-07 09:11] LABS: Alanine Aminotransferase 37 U/L (0-40); Albumin Level 4.5 g/dL (3.5-5.0); Alkaline Phosphatase 90 U/L (39-117); Anion Gap 12 (12-20); Aspartate Amino Transferase 18 U/L (5-37); Bilirubin Total 0.6 mg/dL (0.0-1.0); Blood Urea Nitrogen 10 mg/dL (9-16); Calcium 9.6 mg/dL (8.4-10.2); Carbon Dioxide 22 mmol/L (22-29); Chloride 111 mmol/L (96-108); Cholesterol 161 mg/dL (<200); Creatinine Clr Calc Pharmacy 165.8; Estimated Glomerular Filt Rate > 60; Glucose Random 96 mg/dL (60-115); HDL Cholesterol 46 mg/dL (>40); LDL Cholesterol Calculated 98 mg/dL (<100); Potassium 3.8 mmol/L (3.3-5.1); Sodium 141 mmol/L (135-145); Total Protein 7.4 g/dL (6.5-8.0); Triglycerides 88 mg/dL (<150)
[2025-02-07 11:28] LABS: Estimated Average Glucose 103 mg/dL; Hemoglobin A1C 144.8018 umol/L; Hemoglobin A1c % 5.2 % (<6.0); Total Hemoglobin (HGBA1C) 4372.0023 umol/L
--- NOTE | 2025-02-07 15:20 | P.PNPSI_ITS ---
Subjective Subjective Date of Service: 02/07/25 Reason For Visit: Pyschosis Interim History: Observed pacing unit hallway. Guarded. Responding with one word answers. Patient reports feeling okay today; pt reports he doesn't need anything . He reports he has been pacing the unit hallway for exercise. denies SI/HI/VH/AH. medication compliant. Medication Compliance: Yes Side effects from medications: No Mental Status Exam Mental Status Exam Patient Appearance: Appropriate Patient Orientation: Person, Place, Time and Situation Level of Consciousness: Awake and Alert Patient Behavior: Guarded and Good Eye Contact Mood Description: Blunted Affect Description: Blunted Ability to Follow Directions: Good Speech Pattern: Clear Memory Description: Intact Thought Process: Intact Thought Content: positive for Intact Diagnostics Vital Signs (24Hr): Vital Signs - 24 hr 02/06/25 20:00 02/07/25 08:00 Temperature 97.6 F 98.3 F Pulse Rate 91 54 Respiratory Rate 15 16 Blood Pressure 119/70 105/51 L Pulse Oximetry 99 98 Oxygen Delivery Method Room Air BMI result Body Mass Index 41.7 Labs 02/07/25 08:41 02/07/25 08:41 Labs: Laboratory Results - last 48 hr 02/07/25 08:41 WBC 4.8 RBC 5.55 Hgb 16.9 Hct 50.0 MCV 90.1 MCH 30.5 MCHC 33.8 RDW 13.9 Plt Count 210 MPV 12.0 Immature Gran % (Auto) 0.2 Neut % (Auto) 36.8 L Lymph % (Auto) 51.1 H O'Brien % (Auto) 9.8 Eos % (Auto) 1.5 Baso % (Auto) 0.6 Lymph # (Auto) 2.5 O'Brien # (Auto) 0.5 Eos # (Auto) 0.1 Baso # (Auto) 0.0 Abs Immat Gran (auto) 0.01 Absolute Neuts (auto) 1.8 L Absolute Nucleated RBC 0.000 Nucleated RBC % (auto) 0.0 Sodium 141 Potassium 3.8 Chloride 111 H Carbon Dioxide 22 Anion Gap 12 BUN 10 Creatinine 1.10 Estim Creat Clear Calc 165.8 Estimated GFR > 60 Random Glucose 96 Estimat Average Glucose 103 Hemoglobin A1c % 5.2 Calcium 9.6 Total Bilirubin 0.6 AST 18 ALT 37 Alkaline Phosphatase 90 Total Protein 7.4 Albumin 4.5 Triglycerides 88 Cholesterol 161 LDL Cholesterol, Calc 98 HDL Cholesterol 46 Medications Medications Current Medications Acetaminophen (Acetaminophen 325 Mg Tablet) 650 mg PO Q6H PRN PRN Reason: Headache/Pain, Scale 1-10 Al Hydroxide/Mg Hydroxide (Magnesium Hydrox/Alum Hydrox 30 Ml Oral.Susp) 30 ml PO Q6H PRN PRN Reason: Heartburn/Nausea Aripiprazole (Aripiprazole 30 Mg Tablet) 30 mg PO BEDTIME EMILY Last Admin: 02/06/25 20:24 Dose: 30 mg Clonidine HCl (Clonidine Hcl 0.2 Mg Tablet) 0.2 mg PO BEDTIME EMILY; Protocol Last Admin: 02/06/25 20:23 Dose: 0.2 mg Haloperidol (Haloperidol 5 Mg Tablet) 10 mg PO BID PRN PRN Reason: psychosis/agitation Haloperidol (Haloperidol 5 Mg Tablet) 25 mg PO BID EMILY Last Admin: 02/07/25 08:17 Dose: 25 mg Hydroxyzine HCl (Hydroxyzine Hcl 25 Mg Tablet) 25 mg PO Q6H PRN PRN Reason: mild anxiety Last Admin: 01/24/25 20:55 Dose: 25 mg Magnesium Hydroxide (Milk Of Magnesia 30 Ml Oral.Susp) 30 ml PO DAILY PRN PRN Reason: Constipation Last Admin: 02/06/25 09:54 Dose: 30 ml Nicotine (Nicotine 21 Mg Patch.Td24) 21 mg TRANSDERMA DAILY PRN PRN Reason: smoking cessation Olanzapine (Olanzapine 10 Mg Tablet) 10 mg PO TID PRN PRN Reason: agitation Sumatriptan Succinate (Sumatriptan Succinate 100 Mg Tablet) 100 mg PO DAILY PRN PRN Reason: migraine Topiramate (Topiramate 100 Mg Tablet) 200 mg PO BEDTIME EMILY Last Admin: 02/06/25 20:24 Dose: 200 mg Trazodone HCl (Trazodone Hcl 50 Mg Tablet) 50 mg PO BEDTIME MRX1 PRN PRN Reason: Insomnia Last Admin: 02/06/25 20:24 Dose: 50 mg Allergies Allergies Allergy/AdvReac Type Severity Reaction Status Date / Time paliperidone [From Invega] Allergy Itching Verified 01/20/25 16:47 Assessment & Plan Assessment & Plan (1) Schizophrenia: Status: Acute Code(s): F20.9 - Schizophrenia, unspecified Plan Patient is a 24-year-old male with history of schizophrenia, off Invega Sustenna for about 3 months who presents with i.e. compensated psychotic symptoms and aggression. Patient is a poor historian. He initially says he does not know why his mother wanted him to come to the hospital. He quickly became angry at software writer, starting to yell at software writer, intense and starting to posture, including as software writer walks away down the goodman I wanted different doctor... I do not trust you and that that software writer is a shit doctor. Photo Mask Cleaner needed to terminate conversation and get away from patient for safety. Earlier he got angry at a nurse and also swore at her. Mother provided some collateral to staff. Apparently patient has been stable since his hospitalization when he was 16 years old, benefitting from Invega Sustenna; he attended [employer] and graduated. It is not clear if Invega Sustenna stopped working or he refused to take it but he has been decompensating over the past 3 months and has had to other recent hospitalizations. Mother says that he is scaring her and the neighbors;,paranoid and delusional frequently self dialoguing. Prior to coming to the hospital he tried to jump out of moving car. Formulation/clinical reasoning: Decompensated schizophrenia; either patient stopped taking Invega Sustenna or it stopped working. At the mentioned of the word Invega patient became extremely angry. However he was started on other medications (at other admission? ) which she is amenable to taking, including Abilify and Haldol so will continue these; software writer will increase Haldol to 10 mg t.i.d., up from b.i.d.. -will give patient single room for safety of peers, since patient easily provoked Hospital course: 01/23 Patient seems to be more calm today. Guarded on approach and little to say to software writer other than that he is doing all right and has no complaints or requests and says nothing is on his mind. Photo Mask Cleaner left it there so as not to accidentally provoke. Patient taking prescribed medication. To nursing staff patient said I was tormented yesterday... 01/24 Continue plan/regime. 01/25 Suggested to pt a trial of Abimauro Bingahm per his OP MD Dr. Feng Villa. He will consider. 01/26 Refuses all LILLY suggestions. 01/27 Continue regime/plan 01/28 Some breakthrough sx. Increase Haldol to 10 mg qid 01/30/25 - CTP 02/01/25- Continue regime/plan 02/02/26 On 02/03 increase Haldol to 30 mg bid (an increase of 20 mg) 02/03/25- continue regime/plan 02/06- Continue tx 02/07: Observed pacing unit hallway. Guarded. Responding with one word answers. Patient reports feeling okay today; pt reports he doesn't need anything . He reports he has been pacing the unit hallway for exercise. denies SI/HI/VH/AH. medication compliant. continue current tx plan. Plan: CV Q 15 minute checks -will give patient single room since easily provoked Continue?Abilify 30 mg q.h.s. Continue Clonidine 0.2 mg q.h.s. Continue Topamax 200 mg q.h.s. Increase to Haldol 10 mg t.i.d., up from b.i.d. Patient educated on: medication risk/benefits Reason for continued inpatient stay Substantial Risk for: med/psych decompensation Time Spent With Patient Time: Total time managing care of this patient today _10___ minutes.
[2025-02-07] MEDS: cloNIDine HCL 0.2 MG TABLET PO (19:48)
[2025-02-07] MEDS: ARIPiprazole 30 MG TABLET PO (19:48)
[2025-02-07] MEDS: traZODone HCL 50 MG TABLET PO (19:48)
[2025-02-07] MEDS: Topiramate 100 MG TABLET 200 MG PO (19:48)
[2025-02-07 20:00] VITALS: BP 119/62; PULSE 81; RESP 16; TEMP 36.4; O2SAT 98
[2025-02-08 08:00] VITALS: BP 129/74; PULSE 54; TEMP 36.6; O2SAT 99
[2025-02-08] MEDS: Milk of Magnesia 30 ML ORAL.SUSP PO (08:44)
[2025-02-08] MEDS: HaloperidoL 5 MG TABLET 25 MG PO ×2 (08:44→20:49)
--- NOTE | 2025-02-08 10:09 | HO.PSYCHPN ---
Subjective Subjective Date of Service: 02/08/25 Reason For Visit: Pyschosis Subjective Notes: Conditional Voluntary Healthcare Proxy: No Guardianship: No Medical Problems Affecting Mental Status: No Interim History: Discussed with pt that there are no current housing options from his affiliated agencies. Discussed need to choose an LILLY as current PO regimes are not helping him achieve baseline. Pt discussed his meetings with Dr. Villa. He would like to trial Maintenna as Dr. Villa had suggested. We will order and adjust PO Haldol and Abilify. Medication Compliance: Yes Side effects from medications: No Attending Groups: Intermittent Review of Systems Acute medical concerns: No Medical Review of Systems: unchanged Review of Systems Review of Systems Denies Mental Status Exam Mental Status Exam Patient Appearance: Appropriate Patient Orientation: Person, Place, Time and Situation Level of Consciousness: Awake and Alert Patient Behavior: Guarded and Good Eye Contact Mood Description: Blunted Affect Description: Blunted Ability to Follow Directions: Good Speech Pattern: Clear Memory Description: Intact Thought Process: Intact Thought Content: positive for Intact Diagnostics Vital Signs (24Hr): Vital Signs - 24 hr 02/07/25 20:00 02/08/25 08:00 Temperature 97.6 F 97.8 F Pulse Rate 81 54 Respiratory Rate 16 Blood Pressure 119/62 129/74 Pulse Oximetry 98 99 Oxygen Delivery Method Room Air Room Air BMI result Body Mass Index 41.7 Labs 02/07/25 08:41 02/07/25 08:41 Labs: Laboratory Results - last 48 hr 02/07/25 08:41 WBC 4.8 RBC 5.55 Hgb 16.9 Hct 50.0 MCV 90.1 MCH 30.5 MCHC 33.8 RDW 13.9 Plt Count 210 MPV 12.0 Immature Gran % (Auto) 0.2 Neut % (Auto) 36.8 L Lymph % (Auto) 51.1 H Twiggs % (Auto) 9.8 Eos % (Auto) 1.5 Baso % (Auto) 0.6 Lymph # (Auto) 2.5 Twiggs # (Auto) 0.5 Eos # (Auto) 0.1 Baso # (Auto) 0.0 Abs Immat Gran (auto) 0.01 Absolute Neuts (auto) 1.8 L Absolute Nucleated RBC 0.000 Nucleated RBC % (auto) 0.0 Sodium 141 Potassium 3.8 Chloride 111 H Carbon Dioxide 22 Anion Gap 12 BUN 10 Creatinine 1.10 Estim Creat Clear Calc 165.8 Estimated GFR > 60 Random Glucose 96 Estimat Average Glucose 103 Hemoglobin A1c % 5.2 Calcium 9.6 Total Bilirubin 0.6 AST 18 ALT 37 Alkaline Phosphatase 90 Total Protein 7.4 Albumin 4.5 Triglycerides 88 Cholesterol 161 LDL Cholesterol, Calc 98 HDL Cholesterol 46 Medications Medications Current Medications Acetaminophen (Acetaminophen 325 Mg Tablet) 650 mg PO Q6H PRN PRN Reason: Headache/Pain, Scale 1-10 Al Hydroxide/Mg Hydroxide (Magnesium Hydrox/Alum Hydrox 30 Ml Oral.Susp) 30 ml PO Q6H PRN PRN Reason: Heartburn/Nausea Aripiprazole (Aripiprazole 30 Mg Tablet) 30 mg PO BEDTIME EMILY Last Admin: 02/07/25 19:48 Dose: 30 mg Clonidine HCl (Clonidine Hcl 0.2 Mg Tablet) 0.2 mg PO BEDTIME EMILY; Protocol Last Admin: 02/07/25 19:48 Dose: 0.2 mg Haloperidol (Haloperidol 5 Mg Tablet) 10 mg PO BID PRN PRN Reason: psychosis/agitation Haloperidol (Haloperidol 5 Mg Tablet) 25 mg PO BID EMILY Last Admin: 02/08/25 08:44 Dose: 25 mg Hydroxyzine HCl (Hydroxyzine Hcl 25 Mg Tablet) 25 mg PO Q6H PRN PRN Reason: mild anxiety Last Admin: 01/24/25 20:55 Dose: 25 mg Magnesium Hydroxide (Milk Of Magnesia 30 Ml Oral.Susp) 30 ml PO DAILY PRN PRN Reason: Constipation Last Admin: 02/08/25 08:44 Dose: 30 ml Nicotine (Nicotine 21 Mg Patch.Td24) 21 mg TRANSDERMA DAILY PRN PRN Reason: smoking cessation Olanzapine (Olanzapine 10 Mg Tablet) 10 mg PO TID PRN PRN Reason: agitation Sumatriptan Succinate (Sumatriptan Succinate 100 Mg Tablet) 100 mg PO DAILY PRN PRN Reason: migraine Topiramate (Topiramate 100 Mg Tablet) 200 mg PO BEDTIME EMILY Last Admin: 02/07/25 19:48 Dose: 200 mg Trazodone HCl (Trazodone Hcl 50 Mg Tablet) 50 mg PO BEDTIME MRX1 PRN PRN Reason: Insomnia Last Admin: 02/07/25 19:48 Dose: 50 mg Allergies Allergies Allergy/AdvReac Type Severity Reaction Status Date / Time paliperidone [From Invega] Allergy Itching Verified 01/20/25 16:47 Assessment & Plan Assessment & Plan (1) Schizophrenia: Status: Acute Code(s): F20.9 - Schizophrenia, unspecified Plan Patient is a 24-year-old male with history of schizophrenia, off Invega Sustenna for about 3 months who presents with i.e. compensated psychotic symptoms and aggression. Patient is a poor historian. He initially says he does not know why his mother wanted him to come to the hospital. He quickly became angry at repairer typewriter, starting to yell at repairer typewriter, intense and starting to posture, including as repairer typewriter walks away down the goodman I wanted different doctor... I do not trust you and that that repairer typewriter is a shit doctor. Helper Coordinator needed to terminate conversation and get away from patient for safety. Earlier he got angry at a nurse and also swore at her. Mother provided some collateral to staff. Apparently patient has been stable since his hospitalization when he was 16 years old, benefitting from Invega Sustenna; he attended [employer] school and graduated. It is not clear if Invega Sustenna stopped working or he refused to take it but he has been decompensating over the past 3 months and has had to other recent hospitalizations. Mother says that he is scaring her and the neighbors;,paranoid and delusional frequently self dialoguing. Prior to coming to the hospital he tried to jump out of moving car. Formulation/clinical reasoning: Decompensated schizophrenia; either patient stopped taking Invega Sustenna or it stopped working. At the mentioned of the word Invega patient became extremely angry. However he was started on other medications (at other admission? ) which she is amenable to taking, including Abilify and Haldol so will continue these; repairer typewriter will increase Haldol to 10 mg t.i.d., up from b.i.d.. -will give patient single room for safety of peers, since patient easily provoked Hospital course: 01/23 Patient seems to be more calm today. Guarded on approach and little to say to repairer typewriter other than that he is doing all right and has no complaints or requests and says nothing is on his mind. Helper Coordinator left it there so as not to accidentally provoke. Patient taking prescribed medication. To nursing staff patient said I was tormented yesterday... 01/24 Continue plan/regime. 01/25 Suggested to pt a trial of Abilify [place] per his OP MD Dr. Feng Villa. He will consider. 01/26 Refuses all LILLY suggestions. 01/27 Continue regime/plan 01/28 Some breakthrough sx. Increase Haldol to 10 mg qid 01/30/25 - CTP 02/01/25- Continue regime/plan 02/02/26 On 02/03 increase Haldol to 30 mg bid (an increase of 20 mg) 02/03/25- continue regime/plan 02/06- Continue tx 02/07: Observed pacing unit hallway. Guarded. Responding with one word answers. Patient reports feeling okay today; pt reports he doesn't need anything . He reports he has been pacing the unit hallway for exercise. denies SI/HI/VH/AH. medication compliant. continue current tx plan. 02/08: Agrees to [facility]ita trial Plan: CV Q 15 minute checks -will give patient single room since easily provoked Continue?Abilify 30 mg q.h.s. Continue Clonidine 0.2 mg q.h.s. Continue Topamax 200 mg q.h.s. Increase to Haldol 10 mg t.i.d., up from b.i.d. Reason for continued inpatient stay Substantial Risk for: rapid decompensation Time Spent With Patient Time: Total time managing care of this patient today ____ minutes.
[2025-02-08 19:39] VITALS: BP 115/69; PULSE 98; TEMP 36.3; O2SAT 99
[2025-02-08] MEDS: Topiramate 100 MG TABLET 200 MG PO (20:49)
[2025-02-08] MEDS: cloNIDine HCL 0.2 MG TABLET PO (20:49)
[2025-02-08] MEDS: traZODone HCL 50 MG TABLET PO (20:49)
[2025-02-08] MEDS: hydrOXYzine HCL 25 MG TABLET PO (20:50)
[2025-02-08] MEDS: ARIPiprazole 30 MG TABLET PO (20:50)
[2025-02-09 08:07] VITALS: BP 122/60; PULSE 56; TEMP 36.4; O2SAT 98
[2025-02-09] MEDS: HaloperidoL 5 MG TABLET 25 MG PO ×2 (08:54→21:51)
--- NOTE | 2025-02-09 10:05 | P.PNPSI_ITS ---
Subjective Subjective Date of Service: 02/09/25 Reason For Visit: Pyschosis Subjective Notes: Conditional Voluntary Healthcare Proxy: No Guardianship: No Medical Problems Affecting Mental Status: No Interim History: Meeting with pt's OP team and pt's mother. Discussed transition to Maintenna, which has been ordered from an outside pharmacy. Discussed discharge planning. Pt asking appropriate questions about the injection, how often he would recieve this and potential SE, along with adjusting of PO Abilify and PO Haldol. Medication Compliance: Yes Side effects from medications: No Attending Groups: Intermittent Review of Systems Acute medical concerns: Yes Review of Systems Review of Systems Denies Mental Status Exam Mental Status Exam Patient Appearance: Appropriate Patient Orientation: Person, Place, Time and Situation Level of Consciousness: Awake and Alert Patient Behavior: Guarded and Good Eye Contact Mood Description: Blunted Affect Description: Blunted Ability to Follow Directions: Good Speech Pattern: Clear Memory Description: Intact Thought Process: Intact Thought Content: positive for Intact Diagnostics Vital Signs (24Hr): Vital Signs - 24 hr 02/08/25 19:39 02/09/25 08:07 Temperature 97.3 F 97.6 F Pulse Rate 98 56 Blood Pressure 115/69 122/60 Pulse Oximetry 99 98 Oxygen Delivery Method Room Air Room Air BMI result Body Mass Index 41.7 Labs 02/07/25 08:41 02/07/25 08:41 Labs: Laboratory Results - last 48 hr 02/07/25 08:41 Estimat Average Glucose 103 Hemoglobin A1c % 5.2 Medications Medications Current Medications Acetaminophen (Acetaminophen 325 Mg Tablet) 650 mg PO Q6H PRN PRN Reason: Headache/Pain, Scale 1-10 Al Hydroxide/Mg Hydroxide (Magnesium Hydrox/Alum Hydrox 30 Ml Oral.Susp) 30 ml PO Q6H PRN PRN Reason: Heartburn/Nausea Aripiprazole (Aripiprazole 30 Mg Tablet) 30 mg PO BEDTIME EMILY Last Admin: 02/08/25 20:50 Dose: 30 mg Clonidine HCl (Clonidine Hcl 0.2 Mg Tablet) 0.2 mg PO BEDTIME EMILY; Protocol Last Admin: 02/08/25 20:49 Dose: 0.2 mg Haloperidol (Haloperidol 5 Mg Tablet) 10 mg PO BID PRN PRN Reason: psychosis/agitation Haloperidol (Haloperidol 5 Mg Tablet) 25 mg PO BID EMILY Last Admin: 02/09/25 08:54 Dose: 25 mg Hydroxyzine HCl (Hydroxyzine Hcl 25 Mg Tablet) 25 mg PO Q6H PRN PRN Reason: mild anxiety Last Admin: 02/08/25 20:50 Dose: 25 mg Magnesium Hydroxide (Milk Of Magnesia 30 Ml Oral.Susp) 30 ml PO DAILY PRN PRN Reason: Constipation Last Admin: 02/08/25 08:44 Dose: 30 ml Nicotine (Nicotine 21 Mg Patch.Td24) 21 mg TRANSDERMA DAILY PRN PRN Reason: smoking cessation Olanzapine (Olanzapine 10 Mg Tablet) 10 mg PO TID PRN PRN Reason: agitation Sumatriptan Succinate (Sumatriptan Succinate 100 Mg Tablet) 100 mg PO DAILY PRN PRN Reason: migraine Topiramate (Topiramate 100 Mg Tablet) 200 mg PO BEDTIME EMILY Last Admin: 02/08/25 20:49 Dose: 200 mg Trazodone HCl (Trazodone Hcl 50 Mg Tablet) 50 mg PO BEDTIME MRX1 PRN PRN Reason: Insomnia Last Admin: 02/08/25 20:49 Dose: 50 mg Allergies Allergies Allergy/AdvReac Type Severity Reaction Status Date / Time paliperidone [From MAD Incubator] Allergy Itching Verified 01/20/25 16:47 Assessment & Plan Assessment & Plan (1) Schizophrenia: Status: Acute Code(s): F20.9 - Schizophrenia, unspecified Plan Patient is a 24-year-old male with history of schizophrenia, off Invega Sustkelsea for about 3 months who presents with i.e. compensated psychotic symptoms and aggression. Patient is a poor historian. He initially says he does not know why his mother wanted him to come to the hospital. He quickly became angry at policy writer typist, starting to yell at policy writer typist, intense and starting to posture, including as policy writer typist walks away down the goodman I wanted different doctor... I do not trust you and that that policy writer typist is a shit doctor. Baling Press Operator needed to terminate conversation and get away from patient for safety. Earlier he got angry at a nurse and also swore at her. Mother provided some collateral to staff. Apparently patient has been stable since his hospitalization when he was 16 years old, benefitting from Invega Sustenna; he attended [employer] school and graduated. It is not clear if Invega Rosario stopped working or he refused to take it but he has been decompensating over the past 3 months and has had to other recent hospitalizations. Mother says that he is scaring her and the neighbors;,paranoid and delusional frequently self dialoguing. Prior to coming to the hospital he tried to jump out of moving car. Formulation/clinical reasoning: Decompensated schizophrenia; either patient stopped taking Invega Sustenna or it stopped working. At the mentioned of the word Invega patient became extremely angry. However he was started on other medications (at other admission? ) which she is amenable to taking, including Abilify and Haldol so will continue these; policy writer typist will increase Haldol to 10 mg t.i.d., up from b.i.d.. -will give patient single room for safety of peers, since patient easily provoked Hospital course: 01/23 Patient seems to be more calm today. Guarded on approach and little to say to policy writer typist other than that he is doing all right and has no complaints or requests and says nothing is on his mind. Baling Press Operator left it there so as not to accidentally provoke. Patient taking prescribed medication. To nursing staff patient said I was tormented yesterday... 01/24 Continue plan/regime. 01/25 Suggested to pt a trial of Allie Bingham per his OP MD Dr. Feng Villa. He will consider. 01/26 Refuses all LILLY suggestions. 01/27 Continue regime/plan 01/28 Some breakthrough sx. Increase Haldol to 10 mg qid 01/30/25 - CTP 02/01/25- Continue regime/plan 02/02/26 On 02/03 increase Haldol to 30 mg bid (an increase of 20 mg) 02/03/25- continue regime/plan 02/06- Continue tx 02/07: Observed pacing unit hallway. Guarded. Responding with one word answers. Patient reports feeling okay today; pt reports he doesn't need anything . He reports he has been pacing the unit hallway for exercise. denies SI/HI/VH/AH. medication compliant. continue current tx plan. 02/09: Continue tx Plan: CV Q 15 minute checks -will give patient single room since easily provoked Continue?Abilify 30 mg q.h.s. Continue Clonidine 0.2 mg q.h.s. Continue Topamax 200 mg q.h.s. Increase to Haldol 10 mg t.i.d., up from b.i.d. Reason for continued inpatient stay Substantial Risk for: rapid decompensation Time Spent With Patient Time: Total time managing care of this patient today ____ minutes.
[2025-02-09 20:00] VITALS: BP 125/70; PULSE 64; TEMP 36.8; O2SAT 98
[2025-02-09 21:53] VITALS: BP 125/70
[2025-02-09] MEDS: cloNIDine HCL 0.2 MG TABLET PO (21:53)
[2025-02-09] MEDS: Topiramate 100 MG TABLET 200 MG PO (21:54)
[2025-02-09] MEDS: ARIPiprazole 30 MG TABLET PO (21:55)
[2025-02-09] MEDS: Milk of Magnesia 30 ML ORAL.SUSP PO (21:55)
[2025-02-09] MEDS: traZODone HCL 50 MG TABLET PO (21:55)
[2025-02-10 08:00] VITALS: BP 100/58; PULSE 54; TEMP 36.3; O2SAT 99
[2025-02-10] MEDS: HaloperidoL 5 MG TABLET 25 MG PO ×2 (08:40→21:30)
[2025-02-10 11:54] VITALS: BMI 41.3
--- NOTE | 2025-02-10 12:22 | P.PNPSI_ITS ---
Subjective Subjective Date of Service: 02/10/25 Reason For Visit: Pyschosis Subjective Notes: Conditional Voluntary Healthcare Proxy: No Guardianship: No Medical Problems Affecting Mental Status: No Interim History: Team report pt to be isolative today. Not attending groups. Anxious about pending Maintena injection- discussed that it is on order and pharmacy has not delivered it yet. Insurance initially denies. PA submitted. Evelyn Mart[facility]nez [facility] spoke with pt's insurance in addition- they report it will have an authorization this evening. Pt appearing preoccupied at times. When asked about this. I don't know where I will live . This is important to me. Medication Compliance: Yes Side effects from medications: No Attending Groups: No Review of Systems Acute medical concerns: No Review of Systems Review of Systems Denies Mental Status Exam Mental Status Exam Patient Appearance: Appropriate Patient Orientation: Person, Place, Time and Situation Level of Consciousness: Awake and Alert Patient Behavior: Guarded and Good Eye Contact Mood Description: Blunted Affect Description: Blunted Ability to Follow Directions: Good Speech Pattern: Clear Memory Description: Intact Delusions: Paranoid Ideation and Present Perceptual Disturbances: Derealization Thought Process: Rumination Thought Content: positive for Perseveration Judgement: Fair Diagnostics Vital Signs (24Hr): Vital Signs - 24 hr 02/09/25 20:00 02/09/25 21:53 02/10/25 08:00 Temperature 98.2 F 97.3 F Pulse Rate 64 54 Blood Pressure 125/70 125/70 100/58 L Pulse Oximetry 98 99 Oxygen Delivery Method Room Air Room Air BMI result Body Mass Index 41.3 Labs 02/07/25 08:41 02/07/25 08:41 Medications Medications Current Medications Acetaminophen (Acetaminophen 325 Mg Tablet) 650 mg PO Q6H PRN PRN Reason: Headache/Pain, Scale 1-10 Al Hydroxide/Mg Hydroxide (Magnesium Hydrox/Alum Hydrox 30 Ml Oral.Susp) 30 ml PO Q6H PRN PRN Reason: Heartburn/Nausea Aripiprazole (Aripiprazole 30 Mg Tablet) 30 mg PO BEDTIME EMILY Last Admin: 02/09/25 21:55 Dose: 30 mg Clonidine HCl (Clonidine Hcl 0.2 Mg Tablet) 0.2 mg PO BEDTIME EMILY; Protocol Last Admin: 02/09/25 21:53 Dose: 0.2 mg Haloperidol (Haloperidol 5 Mg Tablet) 10 mg PO BID PRN PRN Reason: psychosis/agitation Haloperidol (Haloperidol 5 Mg Tablet) 25 mg PO BID EMILY Last Admin: 02/10/25 08:40 Dose: 25 mg Hydroxyzine HCl (Hydroxyzine Hcl 25 Mg Tablet) 25 mg PO Q6H PRN PRN Reason: mild anxiety Last Admin: 02/08/25 20:50 Dose: 25 mg Magnesium Hydroxide (Milk Of Magnesia 30 Ml Oral.Susp) 30 ml PO DAILY PRN PRN Reason: Constipation Last Admin: 02/09/25 21:55 Dose: 30 ml Nicotine (Nicotine 21 Mg Patch.Td24) 21 mg TRANSDERMA DAILY PRN PRN Reason: smoking cessation Olanzapine (Olanzapine 10 Mg Tablet) 10 mg PO TID PRN PRN Reason: agitation Sumatriptan Succinate (Sumatriptan Succinate 100 Mg Tablet) 100 mg PO DAILY PRN PRN Reason: migraine Topiramate (Topiramate 100 Mg Tablet) 200 mg PO BEDTIME EMILY Last Admin: 02/09/25 21:54 Dose: 200 mg Trazodone HCl (Trazodone Hcl 50 Mg Tablet) 50 mg PO BEDTIME MRX1 PRN PRN Reason: Insomnia Last Admin: 02/09/25 21:55 Dose: 50 mg Allergies Allergies Allergy/AdvReac Type Severity Reaction Status Date / Time paliperidone [From [employer]bl[employer]ers] Allergy Itching Verified 01/20/25 16:47 Assessment & Plan Assessment & Plan (1) Schizophrenia: Status: Acute Code(s): F20.9 - Schizophrenia, unspecified Plan Patient is a 24-year-old male with history of schizophrenia, off Invega Sustenna for about 3 months who presents with i.e. compensated psychotic symptoms and aggression. Patient is a poor historian. He initially says he does not know why his mother wanted him to come to the hospital. He quickly became angry at advertising copy writer, starting to yell at advertising copy writer, intense and starting to posture, including as advertising copy writer walks away down the goodman I wanted different doctor... I do not trust you and that that advertising copy writer is a shit doctor. Property Utilization Officer needed to terminate conversation and get away from patient for safety. Earlier he got angry at a nurse and also swore at her. Mother provided some collateral to staff. Apparently patient has been stable since his hospitalization when he was 16 years old, benefitting from Invega Sustenna; he attended [employer] and graduated. It is not clear if Lita Ponce stopped working or he refused to take it but he has been decompensating over the past 3 months and has had to other recent hospitalizations. Mother says that he is scaring her and the neighbors;,paranoid and delusional frequently self dialoguing. Prior to coming to the hospital he tried to jump out of moving car. Formulation/clinical reasoning: Decompensated schizophrenia; either patient stopped taking Lita Ponce or it stopped working. At the mentioned of the word Invega patient became extremely angry. However he was started on other medications (at other admission? ) which she is amenable to taking, including Abilify and Haldol so will continue these; advertising copy writer will increase Haldol to 10 mg t.i.d., up from b.i.d.. -will give patient single room for safety of peers, since patient easily provoked Hospital course: 01/23 Patient seems to be more calm today. Guarded on approach and little to say to advertising copy writer other than that he is doing all right and has no complaints or requests and says nothing is on his mind. Property Utilization Officer left it there so as not to accidentally provoke. Patient taking prescribed medication. To nursing staff patient said I was tormented yesterday... 01/24 Continue plan/regime. 01/25 Suggested to pt a trial of Abilifallyssa Vicentetena per his OP MD Dr. Feng Villa. He will consider. 01/26 Refuses all LILLY suggestions. 01/27 Continue regime/plan 01/28 Some breakthrough sx. Increase Haldol to 10 mg qid 01/30/25 - CTP 02/01/25- Continue regime/plan 02/02/26 On 02/03 increase Haldol to 30 mg bid (an increase of 20 mg) 02/03/25- continue regime/plan 02/06- Continue tx 02/07: Observed pacing unit hallway. Guarded. Responding with one word answers. Patient reports feeling okay today; pt reports he doesn't need anything . He reports he has been pacing the unit hallway for exercise. denies SI/HI/VH/AH. medication compliant. continue current tx plan. 02/09: Continue tx 02/10: Continue tx. Await Maintena arrival. Plan: CV Q 15 minute checks -will give patient single room since easily provoked Continue?Abilify 30 mg q.h.s. Continue Clonidine 0.2 mg q.h.s. Continue Topamax 200 mg q.h.s. Increase to Haldol 10 mg t.i.d., up from b.i.d. Reason for continued inpatient stay Substantial Risk for: rapid decompensation Time Spent With Patient Time: Total time managing care of this patient today ____ minutes.
[2025-02-10 20:50] VITALS: BP 122/67; PULSE 94; TEMP 36.9; O2SAT 99
[2025-02-10] MEDS: Topiramate 100 MG TABLET 200 MG PO (21:29)
[2025-02-10] MEDS: ARIPiprazole 30 MG TABLET PO (21:30)
[2025-02-10] MEDS: cloNIDine HCL 0.2 MG TABLET PO (21:31)
--- NOTE | 2025-02-11 | ECG_ITS ---
Test Reason : STARTING ON LILLY Blood Pressure : */* mmHG Vent. Rate : 51 BPM Atrial Rate : 51 BPM P-R Int : 198 ms QRS Dur : 100 ms QT Int : 418 ms P-R-T Axes : 37 39 27 degrees QTcB Int : 385 ms Sinus bradycardia Otherwise normal ECG When compared with ECG of 21-Jan-2025 08:19, No significant change was found Referred By: Myrtle Payton Electronically Signed By: DARWIN DOS SANTOS MD
[2025-02-11 08:00] VITALS: BP 110/58; PULSE 50; RESP 16; TEMP 36.5; O2SAT 96
--- NOTE | 2025-02-11 09:59 | HO.PSYCHPN ---
Subjective Subjective Date of Service: 02/11/25 Reason For Visit: Pyschosis Subjective Notes: Conditional Voluntary Healthcare Proxy: No Guardianship: No Medical Problems Affecting Mental Status: No Interim History: I did it Pt able to take his first Maintena injection today. Reports he is feeling well, however, is looking sedate when seen at 1320. As a result will hold HS Allie rivera. Reviewed in team. We will make no Haldol changes in dosing at this time and we will continue to monitor Porter over the weekend. This was discussed with Porter and he agrees and is aware to inform team of any adverse sx he may experience so changes may be attempted. Discussed housing- Will they get me a house now that I have the shot ?. Education provided. Porter verbalized understanding. Asks for a discharge date. Discussed evaluating how he is responding to the injection next week and he agreed. Medication Compliance: Yes Side effects from medications: No Attending Groups: No Review of Systems Acute medical concerns: No Medical Review of Systems: unchanged Review of Systems Review of Systems Received Abilifallyssa Domingueza injection #1 today. Watching for any adverse effects. Mental Status Exam Mental Status Exam Patient Appearance: Appropriate Patient Orientation: Person, Place, Time and Situation Level of Consciousness: Awake and Alert Patient Behavior: Talkative and Good Eye Contact Mood Description: Calm Affect Description: Calm Patient Cognition Impaired: No Ability to Follow Directions: Good Speech Pattern: Clear Memory Description: Intact Hallucinations: None Delusions: Paranoid Ideation and Present Perceptual Disturbances: Derealization Thought Process: Rumination Thought Content: positive for Perseveration Judgement: Fair Diagnostics Vital Signs (24Hr): Vital Signs - 24 hr 02/10/25 20:50 02/11/25 08:00 Temperature 98.4 F 97.7 F Pulse Rate 94 50 Respiratory Rate 16 Blood Pressure 122/67 110/58 L Pulse Oximetry 99 96 Oxygen Delivery Method Room Air Room Air BMI result Body Mass Index 41.3 Labs 02/07/25 08:41 02/07/25 08:41 Medications Medications Current Medications Acetaminophen (Acetaminophen 325 Mg Tablet) 650 mg PO Q6H PRN PRN Reason: Headache/Pain, Scale 1-10 Al Hydroxide/Mg Hydroxide (Magnesium Hydrox/Alum Hydrox 30 Ml Oral.Susp) 30 ml PO Q6H PRN PRN Reason: Heartburn/Nausea Aripiprazole (Aripiprazole 30 Mg Tablet) 30 mg PO BEDTIME EMILY Last Admin: 02/10/25 21:30 Dose: 30 mg Clonidine HCl (Clonidine Hcl 0.2 Mg Tablet) 0.2 mg PO BEDTIME EMILY; Protocol Last Admin: 02/10/25 21:31 Dose: 0.2 mg Haloperidol (Haloperidol 5 Mg Tablet) 10 mg PO BID PRN PRN Reason: psychosis/agitation Haloperidol (Haloperidol 5 Mg Tablet) 25 mg PO BID EMILY Last Admin: 02/10/25 21:30 Dose: 25 mg Hydroxyzine HCl (Hydroxyzine Hcl 25 Mg Tablet) 25 mg PO Q6H PRN PRN Reason: mild anxiety Last Admin: 02/08/25 20:50 Dose: 25 mg Magnesium Hydroxide (Milk Of Magnesia 30 Ml Oral.Susp) 30 ml PO DAILY PRN PRN Reason: Constipation Last Admin: 02/09/25 21:55 Dose: 30 ml Nicotine (Nicotine 21 Mg Patch.Td24) 21 mg TRANSDERMA DAILY PRN PRN Reason: smoking cessation Olanzapine (Olanzapine 10 Mg Tablet) 10 mg PO TID PRN PRN Reason: agitation Sumatriptan Succinate (Sumatriptan Succinate 100 Mg Tablet) 100 mg PO DAILY PRN PRN Reason: migraine Topiramate (Topiramate 100 Mg Tablet) 200 mg PO BEDTIME EMILY Last Admin: 02/10/25 21:29 Dose: 200 mg Trazodone HCl (Trazodone Hcl 50 Mg Tablet) 50 mg PO BEDTIME MRX1 PRN PRN Reason: Insomnia Last Admin: 02/09/25 21:55 Dose: 50 mg Allergies Allergies Allergy/AdvReac Type Severity Reaction Status Date / Time paliperidone [From Invega] Allergy Itching Verified 01/20/25 16:47 Assessment & Plan Assessment & Plan (1) Schizophrenia: Status: Acute Code(s): F20.9 - Schizophrenia, unspecified Plan Patient is a 24-year-old male with history of schizophrenia, off Invega Sustenna for about 3 months who presents with i.e. compensated psychotic symptoms and aggression. Patient is a poor historian. He initially says he does not know why his mother wanted him to come to the hospital. He quickly became angry at policy writer sales, starting to yell at policy writer sales, intense and starting to posture, including as policy writer sales walks away down the goodman I wanted different doctor... I do not trust you and that that policy writer sales is a shit doctor. Health Care Manager needed to terminate conversation and get away from patient for safety. Earlier he got angry at a nurse and also swore at her. Mother provided some collateral to staff. Apparently patient has been stable since his hospitalization when he was 16 years old, benefitting from Invega Sustenna; he attended [employer] and graduated. It is not clear if Invcassidy Ponce stopped working or he refused to take it but he has been decompensating over the past 3 months and has had to other recent hospitalizations. Mother says that he is scaring her and the neighbors;,paranoid and delusional frequently self dialoguing. Prior to coming to the hospital he tried to jump out of moving car. Formulation/clinical reasoning: Decompensated schizophrenia; either patient stopped taking Invega Sustenna or it stopped working. At the mentioned of the word Invega patient became extremely angry. However he was started on other medications (at other admission? ) which she is amenable to taking, including Abilify and Haldol so will continue these; policy writer sales will increase Haldol to 10 mg t.i.d., up from b.i.d.. -will give patient single room for safety of peers, since patient easily provoked Hospital course: 01/23 Patient seems to be more calm today. Guarded on approach and little to say to policy writer sales other than that he is doing all right and has no complaints or requests and says nothing is on his mind. Health Care Manager left it there so as not to accidentally provoke. Patient taking prescribed medication. To nursing staff patient said I was tormented yesterday... 01/24 Continue plan/regime. 01/25 Suggested to pt a trial of Allie Bingham per his OP MD Dr. Feng Villa. He will consider. 01/26 Refuses all LILLY suggestions. 01/27 Continue regime/plan 01/28 Some breakthrough sx. Increase Haldol to 10 mg qid 01/30/25 - CTP 02/01/25- Continue regime/plan 02/02/26 On 02/03 increase Haldol to 30 mg bid (an increase of 20 mg) 02/03/25- continue regime/plan 02/06- Continue tx 02/07: Observed pacing unit hallway. Guarded. Responding with one word answers. Patient reports feeling okay today; pt reports he doesn't need anything . He reports he has been pacing the unit hallway for exercise. denies SI/HI/VH/AH. medication compliant. continue current tx plan. 02/09: Continue tx 02/10: Continue tx. Await Maintena arrival. 02/11: Maintena given. Observe for SE Plan: CV Q 15 minute checks -will give patient single room since easily provoked Continue?Abilify 30 mg q.h.s. Continue Clonidine 0.2 mg q.h.s. Continue Topamax 200 mg q.h.s. Increase to Haldol 10 mg t.i.d., up from b.i.d. Reason for continued inpatient stay Substantial Risk for: rapid decompensation Time Spent With Patient Time: Total time managing care of this patient today ____ minutes.
[2025-02-11] MEDS: HaloperidoL 5 MG TABLET 25 MG PO ×2 (10:28→20:49)
[2025-02-11] MEDS: ABILIFY MAINTENA 300 MG 300 EACH IM (11:26)
[2025-02-11] MEDS: Milk of Magnesia 30 ML ORAL.SUSP PO (13:18)
[2025-02-11] MEDS: Acetaminophen 325 MG TABLET 650 MG PO (14:48)
[2025-02-11] MEDS: bisacodyL 5 MG TABLET.DR 10 MG PO (17:40)
[2025-02-11 20:00] VITALS: BP 127/70; PULSE 100; TEMP 36.4; O2SAT 100
[2025-02-11] MEDS: cloNIDine HCL 0.2 MG TABLET PO (20:49)
[2025-02-11] MEDS: Magnesium Citrate 300 ML SOLUTION PO (20:49)
[2025-02-11] MEDS: traZODone HCL 50 MG TABLET PO (20:49)
[2025-02-11] MEDS: Topiramate 100 MG TABLET 200 MG PO (20:49)
--- NOTE | 2025-02-12 04:42 | PC.NURSE ---
300 ml of Mag Citrate administered as ordered. Patient reports having had 3 bowel movements at this time. Will continue to monitor.
[2025-02-12 08:00] VITALS: BP 113/60; PULSE 52; RESP 16; TEMP 36.3; O2SAT 99
[2025-02-12] MEDS: HaloperidoL 5 MG TABLET 25 MG PO ×2 (09:18→20:34)
--- NOTE | 2025-02-12 09:56 | P.PNPSI_ITS ---
Subjective Subjective Date of Service: 02/12/25 Reason For Visit: Pyschosis Interim History: met with patient; discussed with team Patient calm, sitting on bed reading. Psychiatric Technician Assistant discussed recent Abilify Maintena injection. Patient says he is doing well and no complaints or requests. Intermittently he has shouted out a word or 2 which is unusual, (not angry more like exuberant) but overall in behavioral control. Patient reports that he had bowel movements last night and is no longer in abdominal pain. pooped all night; no longer any abdominal pain Mental Status Exam Mental Status Exam Patient Appearance: Appropriate Patient Orientation: Person, Place, Time and Situation Level of Consciousness: Awake and Alert Patient Behavior: Appropriate, Talkative and Good Eye Contact Mood Description: Calm (mostly) Affect Description: Calm Patient Cognition Impaired: No Ability to Follow Directions: Fair Speech Pattern: Clear Memory Description: Intact Hallucinations: None Delusions: Paranoid Ideation (though not expressed) and Present Perceptual Disturbances: Derealization Thought Process: Rumination and Goal Oriented Thought Content: positive for Perseveration and positive for Suicidal Ideation (no) Judgement and Insight: Impaired but seems to be improving Diagnostics Vital Signs (24Hr): Vital Signs - 24 hr 02/11/25 20:00 02/12/25 08:00 Temperature 97.5 F 97.4 F Pulse Rate 100 52 Respiratory Rate 16 Blood Pressure 127/70 113/60 Pulse Oximetry 100 99 Oxygen Delivery Method Room Air Room Air BMI result Body Mass Index 41.3 Labs 02/07/25 08:41 02/07/25 08:41 Medications Medications Current Medications Acetaminophen (Acetaminophen 325 Mg Tablet) 650 mg PO Q6H PRN PRN Reason: Headache/Pain, Scale 1-10 Last Admin: 02/11/25 14:48 Dose: 650 mg Al Hydroxide/Mg Hydroxide (Magnesium Hydrox/Alum Hydrox 30 Ml Oral.Susp) 30 ml PO Q6H PRN PRN Reason: Heartburn/Nausea Bisacodyl (Bisacodyl 5 Mg Tablet.Dr) 10 mg PO DAILY PRN PRN Reason: Constipation Last Admin: 02/11/25 17:40 Dose: 10 mg Clonidine HCl (Clonidine Hcl 0.2 Mg Tablet) 0.2 mg PO BEDTIME EMILY; Protocol Last Admin: 02/11/25 20:49 Dose: 0.2 mg Haloperidol (Haloperidol 5 Mg Tablet) 10 mg PO BID PRN PRN Reason: psychosis/agitation Haloperidol (Haloperidol 5 Mg Tablet) 25 mg PO BID [facility] Last Admin: 02/12/25 09:18 Dose: 25 mg Hydroxyzine HCl (Hydroxyzine Hcl 25 Mg Tablet) 25 mg PO Q6H PRN PRN Reason: mild anxiety Last Admin: 02/08/25 20:50 Dose: 25 mg Magnesium Citrate (Magnesium Citrate 300 Ml Solution) 300 ml PO ONCE PRN PRN Reason: severe constipation Last Admin: 02/11/25 20:49 Dose: 300 ml Magnesium Hydroxide (Milk Of Magnesia 30 Ml Oral.Susp) 30 ml PO DAILY PRN PRN Reason: Constipation Last Admin: 02/11/25 13:18 Dose: 30 ml Nicotine (Nicotine 21 Mg Patch.Td24) 21 mg TRANSDERMA DAILY PRN PRN Reason: smoking cessation Non-Formulary Medication (Abilify Maintena 300 Mg Er Inj) 300 mg IM Q30D [facility] Last Admin: 02/11/25 11:26 Dose: 300 mg Olanzapine (Olanzapine 10 Mg Tablet) 10 mg PO TID PRN PRN Reason: agitation Sumatriptan Succinate (Sumatriptan Succinate 100 Mg Tablet) 100 mg PO DAILY PRN PRN Reason: migraine Topiramate (Topiramate 100 Mg Tablet) 200 mg PO BEDTIME [facility] Last Admin: 02/11/25 20:49 Dose: 200 mg Trazodone HCl (Trazodone Hcl 50 Mg Tablet) 50 mg PO BEDTIME MRX1 PRN PRN Reason: Insomnia Last Admin: 02/11/25 20:49 Dose: 50 mg Allergies Allergies Allergy/AdvReac Type Severity Reaction Status Date / Time paliperidone [From Invega] Allergy Itching Verified 01/20/25 16:47 Assessment & Plan Assessment & Plan (1) Schizophrenia: Status: Acute Code(s): F20.9 - Schizophrenia, unspecified Plan Patient is a 24-year-old male with history of schizophrenia, off Invega Sustenna for about 3 months who presents with i.e. compensated psychotic symptoms and aggression. Patient is a poor historian. He initially says he does not know why his mother wanted him to come to the hospital. He quickly became angry at creative services writer, starting to yell at creative services writer, intense and starting to posture, including as creative services writer walks away down the goodman I wanted different doctor... I do not trust you and that that creative services writer is a shit doctor. Psychiatric Technician Assistant needed to terminate conversation and get away from patient for safety. Earlier he got angry at a nurse and also swore at her. Mother provided some collateral to staff. Apparently patient has been stable since his hospitalization when he was 16 years old, benefitting from Invega Sustenna; he attended [employer] and graduated. It is not clear if Invega Sustenna stopped working or he refused to take it but he has been decompensating over the past 3 months and has had to other recent hospitalizations. Mother says that he is scaring her and the neighbors;,paranoid and delusional frequently self dialoguing. Prior to coming to the hospital he tried to jump out of moving car. Formulation/clinical reasoning: Decompensated schizophrenia; either patient stopped taking Invega Sustenna or it stopped working. At the mentioned of the word Invega patient became extremely angry. However he was started on other medications (at other admission? ) which she is amenable to taking, including Abilify and Haldol so will continue these; creative services writer will increase Haldol to 10 mg t.i.d., up from b.i.d.. -will give patient single room for safety of peers, since patient easily provoked Hospital course: 01/23 Patient seems to be more calm today. Guarded on approach and little to say to creative services writer other than that he is doing all right and has no complaints or requests and says nothing is on his mind. Psychiatric Technician Assistant left it there so as not to accidentally provoke. Patient taking prescribed medication. To nursing staff patient said I was tormented yesterday... 01/24 Continue plan/regime. 01/25 Suggested to pt a trial of Allie Bingham per his OP MD Dr. Feng Villa. He will consider. 01/26 Refuses all LILLY suggestions. 01/27 Continue regime/plan 01/28 Some breakthrough sx. Increase Haldol to 10 mg qid 01/30/25 - CTP 02/01/25- Continue regime/plan 02/02/26 On 02/03 increase Haldol to 30 mg bid (an increase of 20 mg) 02/03/25- continue regime/plan 02/06- Continue tx 02/07: Observed pacing unit hallway. Guarded. Responding with one word answers. Patient reports feeling okay today; pt reports he doesn't need anything . He reports he has been pacing the unit hallway for exercise. denies SI/HI/VH/AH. medication compliant. continue current tx plan. 02/09: Continue tx 02/10: Continue tx. Await Maintena arrival. 02/11: Maintena given. Observe for SE 02/12 abdominal pain resolved with bowel movement; patient overall in behavioral control; continue current treatment plan Plan: CV Q 15 minute checks -will give patient single room since easily provoked Continue?Abilify 30 mg q.h.s. Continue Clonidine 0.2 mg q.h.s. Continue Topamax 200 mg q.h.s. Increase to Haldol 10 mg t.i.d., up from b.i.d. Patient educated on: diagnosis, medication risk/benefits and medical condition Informed Consent: understands Reason for continued inpatient stay Substantial Risk for: rapid decompensation Time Spent With Patient Time: Total time managing care of this patient today ____ minutes.
[2025-02-12 20:00] VITALS: BP 129/84; PULSE 86; RESP 16; TEMP 37; O2SAT 97
[2025-02-12] MEDS: Topiramate 100 MG TABLET 200 MG PO (20:35)
[2025-02-12] MEDS: cloNIDine HCL 0.2 MG TABLET PO (20:35)
[2025-02-12] MEDS: Milk of Magnesia 30 ML ORAL.SUSP PO (20:52)
[2025-02-13 08:00] VITALS: RESP 16
[2025-02-13] MEDS: HaloperidoL 5 MG TABLET 25 MG PO ×2 (08:29→20:25)
[2025-02-13] MEDS: Acetaminophen 325 MG TABLET 650 MG PO ×2 (08:29→16:16)
--- NOTE | 2025-02-13 09:27 | HO.PSYCHPN ---
Subjective Subjective Date of Service: 02/13/25 Reason For Visit: Pyschosis Interim History: Met with patient; discussed with team reports doing well; mostly keeping to himself in his room; pleasant, cooperative on approach. Pt denies all psychotic symptoms; denies paranoid ideations and none expressed. pt asked for outpt medication Munjaro, wt loss medication which he says he takes weekly; will discuss with Samm Mental Status Exam Mental Status Exam Patient Appearance: Appropriate Patient Orientation: Person, Place, Time and Situation Level of Consciousness: Awake and Alert Patient Behavior: Appropriate, Talkative and Good Eye Contact Mood Description: Calm Affect Description: Calm Patient Cognition Impaired: No Ability to Follow Directions: Fair Speech Pattern: Clear Memory Description: Intact Hallucinations: None (denies) Delusions: Paranoid Ideation (denies) Thought Process: Goal Oriented Thought Content: positive for Logical (on treatment) and positive for Suicidal Ideation (no) Judgement and Insight: Impaired but improved and maybe at baseline Diagnostics Vital Signs (24Hr): Vital Signs - 24 hr 02/12/25 20:00 02/13/25 08:00 Temperature 98.6 F Pulse Rate 86 Respiratory Rate 16 16 Blood Pressure 129/84 Pulse Oximetry 97 Oxygen Delivery Method Room Air BMI result Body Mass Index 41.3 Labs 02/07/25 08:41 02/07/25 08:41 Medications Medications Current Medications Acetaminophen (Acetaminophen 325 Mg Tablet) 650 mg PO Q6H PRN PRN Reason: Headache/Pain, Scale 1-10 Last Admin: 02/13/25 08:29 Dose: 650 mg Al Hydroxide/Mg Hydroxide (Magnesium Hydrox/Alum Hydrox 30 Ml Oral.Susp) 30 ml PO Q6H PRN PRN Reason: Heartburn/Nausea Bisacodyl (Bisacodyl 5 Mg Tablet.Dr) 10 mg PO DAILY PRN PRN Reason: Constipation Last Admin: 02/11/25 17:40 Dose: 10 mg Clonidine HCl (Clonidine Hcl 0.2 Mg Tablet) 0.2 mg PO BEDTIME EMILY; Protocol Last Admin: 02/12/25 20:35 Dose: 0.2 mg Haloperidol (Haloperidol 5 Mg Tablet) 10 mg PO BID PRN PRN Reason: psychosis/agitation Haloperidol (Haloperidol 5 Mg Tablet) 25 mg PO BID EMILY Last Admin: 02/13/25 08:29 Dose: 25 mg Hydroxyzine HCl (Hydroxyzine Hcl 25 Mg Tablet) 25 mg PO Q6H PRN PRN Reason: mild anxiety Last Admin: 02/08/25 20:50 Dose: 25 mg Magnesium Citrate (Magnesium Citrate 300 Ml Solution) 300 ml PO ONCE PRN PRN Reason: severe constipation Last Admin: 02/11/25 20:49 Dose: 300 ml Magnesium Hydroxide (Milk Of Magnesia 30 Ml Oral.Susp) 30 ml PO DAILY PRN PRN Reason: Constipation Last Admin: 02/12/25 20:52 Dose: 30 ml Nicotine (Nicotine 21 Mg Patch.Td24) 21 mg TRANSDERMA DAILY PRN PRN Reason: smoking cessation Non-Formulary Medication (Abilify Maintena 300 Mg Er Inj) 300 mg IM Q30D EMILY Last Admin: 02/11/25 11:26 Dose: 300 mg Olanzapine (Olanzapine 10 Mg Tablet) 10 mg PO TID PRN PRN Reason: agitation Sumatriptan Succinate (Sumatriptan Succinate 100 Mg Tablet) 100 mg PO DAILY PRN PRN Reason: migraine Topiramate (Topiramate 100 Mg Tablet) 200 mg PO BEDTIME EMILY Last Admin: 02/12/25 20:35 Dose: 200 mg Trazodone HCl (Trazodone Hcl 50 Mg Tablet) 50 mg PO BEDTIME MRX1 PRN PRN Reason: Insomnia Last Admin: 02/11/25 20:49 Dose: 50 mg Allergies Allergies Allergy/AdvReac Type Severity Reaction Status Date / Time paliperidone [From Invega] Allergy Itching Verified 01/20/25 16:47 Assessment & Plan Assessment & Plan (1) Schizophrenia: Status: Acute Code(s): F20.9 - Schizophrenia, unspecified Plan Patient is a 24-year-old male with history of schizophrenia, off Invega Sustenna for about 3 months who presents with i.e. compensated psychotic symptoms and aggression. Patient is a poor historian. He initially says he does not know why his mother wanted him to come to the hospital. He quickly became angry at typewriter assembler, starting to yell at typewriter assembler, intense and starting to posture, including as typewriter assembler walks away down the goodman I wanted different doctor... I do not trust you and that that typewriter assembler is a shit doctor. Staple Shear Operator needed to terminate conversation and get away from patient for safety. Earlier he got angry at a nurse and also swore at her. Mother provided some collateral to staff. Apparently patient has been stable since his hospitalization when he was 16 years old, benefitting from Invcassidy Ponce; he attended [email or web address] school and graduated. It is not clear if Lita Ponce stopped working or he refused to take it but he has been decompensating over the past 3 months and has had to other recent hospitalizations. Mother says that he is scaring her and the neighbors;,paranoid and delusional frequently self dialoguing. Prior to coming to the hospital he tried to jump out of moving car. Formulation/clinical reasoning: Decompensated schizophrenia; either patient stopped taking Invega Sustenna or it stopped working. At the mentioned of the word Invega patient became extremely angry. However he was started on other medications (at other admission? ) which she is amenable to taking, including Abilify and Haldol so will continue these; typewriter assembler will increase Haldol to 10 mg t.i.d., up from b.i.d.. -will give patient single room for safety of peers, since patient easily provoked Hospital course: 01/23 Patient seems to be more calm today. Guarded on approach and little to say to typewriter assembler other than that he is doing all right and has no complaints or requests and says nothing is on his mind. Staple Shear Operator left it there so as not to accidentally provoke. Patient taking prescribed medication. To nursing staff patient said I was tormented yesterday... 01/24 Continue plan/regime. 01/25 Suggested to pt a trial of Allie Bingham per his OP MD Dr. Feng Villa. He will consider. 01/26 Refuses all LILLY suggestions. 01/27 Continue regime/plan 01/28 Some breakthrough sx. Increase Haldol to 10 mg qid 01/30/25 - CTP 02/01/25- Continue regime/plan 02/02/26 On 02/03 increase Haldol to 30 mg bid (an increase of 20 mg) 02/03/25- continue regime/plan 02/06- Continue tx 02/07: Observed pacing unit hallway. Guarded. Responding with one word answers. Patient reports feeling okay today; pt reports he doesn't need anything . He reports he has been pacing the unit hallway for exercise. denies SI/HI/VH/AH. medication compliant. continue current tx plan. 02/09: Continue tx 02/10: Continue tx. Await Maintena arrival. 02/11: Maintena given. Observe for SE 02/12 abdominal pain resolved with bowel movement; patient overall in behavioral control; continue current treatment plan 02/13 remains in good behavioral and impulse control; denies psychotic symptoms -asking for Edith (which he says he gets as outpt) Plan: CV Q 15 minute checks started on abilify Maintenna Continue?Abilify PO abilify. Continue Clonidine 0.2 mg q.h.s. Continue Topamax 200 mg q.h.s. Haldol 10 mg t.i.d., up from b.i.d. Patient educated on: diagnosis and medication risk/benefits Informed Consent: understands Reason for continued inpatient stay Substantial Risk for: stable for discharge and rapid decompensation Time Spent With Patient Time: Total time managing care of this patient today ____ minutes.
[2025-02-13 20:00] VITALS: BP 134/71; PULSE 66; TEMP 36.9; O2SAT 98
[2025-02-13 20:25] VITALS: BP 134/71
[2025-02-13] MEDS: traZODone HCL 50 MG TABLET PO (20:25)
[2025-02-13] MEDS: Topiramate 100 MG TABLET 200 MG PO (20:25)
[2025-02-13] MEDS: cloNIDine HCL 0.2 MG TABLET PO (20:25)
[2025-02-14 08:00] VITALS: BP 102/54; PULSE 48; RESP 16; TEMP 35.8; O2SAT 99
[2025-02-14] MEDS: HaloperidoL 5 MG TABLET 25 MG PO (08:47)
[2025-02-14] MEDS: Acetaminophen 325 MG TABLET 650 MG PO (09:06)
--- NOTE | 2025-02-14 09:35 | P.PNPSI_ITS ---
Subjective Subjective Date of Service: 02/14/25 Reason For Visit: Pyschosis Subjective Notes: Conditional Voluntary Healthcare Proxy: No Guardianship: No Medical Problems Affecting Mental Status: No Interim History: Reports left sided pain, with relief from Tylenol. BM x 4 over the weekend, resolved flank pain-encouraged to give a urine sample to make sure there is no UTI. He will consider. Melissa found me a house. Discussed with pt. He is hoping to DC soon. Expressed anger with IM LILLY. Feels he is more sedate and less active after injection. Discussed careful tapering of Haldol as LILLY takes effect. Reports he feels his attention span is decreased- I would rather just take pills . Denies feeling overmedicated today. Reviewed with mother. She is going to request pt not return home but transition to [facility] housing. Medication Compliance: Yes Side effects from medications: Yes (as noted above) Attending Groups: Intermittent Review of Systems Review of Systems L sided body pain-relieved with Tylenol. Reports he believes this is due to having an uncomfortable bed. Resolved flank pain- encouraged to have urine culture to make sure there is no UTI present. Mental Status Exam Mental Status Exam Patient Appearance: Appropriate Patient Orientation: Person, Place, Time and Situation Level of Consciousness: Awake and Alert Patient Behavior: Appropriate, Talkative and Good Eye Contact Mood Description: Calm and Angry Affect Description: Calm Patient Cognition Impaired: No Ability to Follow Directions: Fair Speech Pattern: Clear Memory Description: Intact Hallucinations: None (denies) Delusions: Paranoid Ideation (denies) Thought Process: Goal Oriented Thought Content: positive for Logical (on treatment) and positive for Suicidal Ideation (no) Depressive Symptoms: Thoughts of /Suicide (denies) Judgement and Insight: Impaired but improved and maybe at baseline Diagnostics Vital Signs (24Hr): Vital Signs - 24 hr 02/13/25 20:00 02/13/25 20:25 02/14/25 08:00 Temperature 98.4 F 96.5 F L Pulse Rate 66 48 L Respiratory Rate 16 Blood Pressure 134/71 134/71 102/54 L Pulse Oximetry 98 99 Oxygen Delivery Method Room Air Room Air BMI result Body Mass Index 41.3 Labs 02/07/25 08:41 02/07/25 08:41 Medications Medications Current Medications Acetaminophen (Acetaminophen 325 Mg Tablet) 650 mg PO Q6H PRN PRN Reason: Headache/Pain, Scale 1-10 Last Admin: 02/14/25 09:06 Dose: 650 mg Al Hydroxide/Mg Hydroxide (Magnesium Hydrox/Alum Hydrox 30 Ml Oral.Susp) 30 ml PO Q6H PRN PRN Reason: Heartburn/Nausea Bisacodyl (Bisacodyl 5 Mg Tablet.Dr) 10 mg PO DAILY PRN PRN Reason: Constipation Last Admin: 02/11/25 17:40 Dose: 10 mg Clonidine HCl (Clonidine Hcl 0.2 Mg Tablet) 0.2 mg PO BEDTIME EMILY; Protocol Last Admin: 02/13/25 20:25 Dose: 0.2 mg Haloperidol (Haloperidol 5 Mg Tablet) 10 mg PO BID PRN PRN Reason: psychosis/agitation Haloperidol (Haloperidol 5 Mg Tablet) 25 mg PO BID [facility] Last Admin: 02/14/25 08:47 Dose: 25 mg Hydroxyzine HCl (Hydroxyzine Hcl 25 Mg Tablet) 25 mg PO Q6H PRN PRN Reason: mild anxiety Last Admin: 02/08/25 20:50 Dose: 25 mg Magnesium Citrate (Magnesium Citrate 300 Ml Solution) 300 ml PO ONCE PRN PRN Reason: severe constipation Last Admin: 02/11/25 20:49 Dose: 300 ml Magnesium Hydroxide (Milk Of Magnesia 30 Ml Oral.Susp) 30 ml PO DAILY PRN PRN Reason: Constipation Last Admin: 02/12/25 20:52 Dose: 30 ml Nicotine (Nicotine 21 Mg Patch.Td24) 21 mg TRANSDERMA DAILY PRN PRN Reason: smoking cessation Non-Formulary Medication (Abilify Maintena 300 Mg Er Inj) 300 mg IM Q30D [facility] Last Admin: 02/11/25 11:26 Dose: 300 mg Olanzapine (Olanzapine 10 Mg Tablet) 10 mg PO TID PRN PRN Reason: agitation Sumatriptan Succinate (Sumatriptan Succinate 100 Mg Tablet) 100 mg PO DAILY PRN PRN Reason: migraine Topiramate (Topiramate 100 Mg Tablet) 200 mg PO BEDTIME [facility] Last Admin: 02/13/25 20:25 Dose: 200 mg Trazodone HCl (Trazodone Hcl 50 Mg Tablet) 50 mg PO BEDTIME MRX1 PRN PRN Reason: Insomnia Last Admin: 02/13/25 20:25 Dose: 50 mg Allergies Allergies Allergy/AdvReac Type Severity Reaction Status Date / Time paliperidone [From Invega] Allergy Itching Verified 01/20/25 16:47 Assessment & Plan Assessment & Plan (1) Schizophrenia: Status: Acute Code(s): F20.9 - Schizophrenia, unspecified Plan Patient is a 24-year-old male with history of schizophrenia, off Invega Sustenna for about 3 months who presents with i.e. compensated psychotic symptoms and aggression. Patient is a poor historian. He initially says he does not know why his mother wanted him to come to the hospital. He quickly became angry at conventional mortgage underwriter, starting to yell at conventional mortgage underwriter, intense and starting to posture, including as conventional mortgage underwriter walks away down the goodman I wanted different doctor... I do not trust you and that that conventional mortgage underwriter is a shit doctor. Digital Art Director needed to terminate conversation and get away from patient for safety. Earlier he got angry at a nurse and also swore at her. Mother provided some collateral to staff. Apparently patient has been stable since his hospitalization when he was 16 years old, benefitting from Invega Sustenna; he attended [employer] school and graduated. It is not clear if Invega Sustenna stopped working or he refused to take it but he has been decompensating over the past 3 months and has had to other recent hospitalizations. Mother says that he is scaring her and the neighbors;,paranoid and delusional frequently self dialoguing. Prior to coming to the hospital he tried to jump out of moving car. Formulation/clinical reasoning: Decompensated schizophrenia; either patient stopped taking Invega Sustenna or it stopped working. At the mentioned of the word Invega patient became extremely angry. However he was started on other medications (at other admission? ) which she is amenable to taking, including Abilify and Haldol so will continue these; conventional mortgage underwriter will increase Haldol to 10 mg t.i.d., up from b.i.d.. -will give patient single room for safety of peers, since patient easily provoked Hospital course: 01/23 Patient seems to be more calm today. Guarded on approach and little to say to conventional mortgage underwriter other than that he is doing all right and has no complaints or requests and says nothing is on his mind. Digital Art Director left it there so as not to accidentally provoke. Patient taking prescribed medication. To nursing staff patient said I was tormented yesterday... 01/24 Continue plan/regime. 01/25 Suggested to pt a trial of Abilify Maintena per his OP MD Dr. Feng iVlla. He will consider. 01/26 Refuses all LILLY suggestions. 01/27 Continue regime/plan 01/28 Some breakthrough sx. Increase Haldol to 10 mg qid 01/30/25 - CTP 02/01/25- Continue regime/plan 02/02/26 On 02/03 increase Haldol to 30 mg bid (an increase of 20 mg) 02/03/25- continue regime/plan 02/06- Continue tx 02/07: Observed pacing unit hallway. Guarded. Responding with one word answers. Patient reports feeling okay today; pt reports he doesn't need anything . He reports he has been pacing the unit hallway for exercise. denies SI/HI/VH/AH. medication compliant. continue current tx plan. 02/09: Continue tx 02/10: Continue tx. Await Maintena arrival. 02/11: Maintena given. Observe for SE 02/12 abdominal pain resolved with bowel movement; patient overall in behavioral control; continue current treatment plan 02/13 remains in good behavioral and impulse control; denies psychotic symptoms -asking for Munjaro (which he says he gets as outpt) 02/14 Decrease Haldol to 20 mg bid Plan: CV Q 15 minute checks started on abilify Maintenna Continue?Abilify PO abilify. Continue Clonidine 0.2 mg q.h.s. Continue Topamax 200 mg q.h.s. Haldol 10 mg t.i.d., up from b.i.d. Reason for continued inpatient stay Substantial Risk for: rapid decompensation Time Spent With Patient Time: Total time managing care of this patient today ____ minutes.
[2025-02-14] MEDS: Ibuprofen 800 MG TABLET PO (11:34)
[2025-02-14] MEDS: Milk of Magnesia 30 ML ORAL.SUSP PO (14:51)
[2025-02-14 20:00] VITALS: BP 137/73; PULSE 88; TEMP 36.5; O2SAT 98
[2025-02-14] MEDS: Topiramate 100 MG TABLET 200 MG PO (20:30)
[2025-02-14 20:32] VITALS: BP 137/73
[2025-02-14] MEDS: cloNIDine HCL 0.2 MG TABLET PO (20:32)
[2025-02-14] MEDS: HaloperidoL 5 MG TABLET 20 MG PO (20:32)
[2025-02-14] MEDS: traZODone HCL 50 MG TABLET PO (20:32)
[2025-02-15 08:00] VITALS: BP 143/86; PULSE 55; RESP 16; TEMP 36.5; O2SAT 99
[2025-02-15] MEDS: HaloperidoL 5 MG TABLET 20 MG PO (08:26)
--- NOTE | 2025-02-15 09:51 | P.PNPSI_ITS ---
Subjective Subjective Date of Service: 02/15/25 Reason For Visit: Pyschosis Subjective Notes: Conditional Voluntary Healthcare Proxy: No Guardianship: No Medical Problems Affecting Mental Status: No Interim History: Reports to team he feels like a slough since having IM. Discussed ongoing tapering of po Haldol which should decrease sx of sedation. I feel too slowed . Improved when seen this afternoon. Agrees to decrease Haldol to 15 mg bid. Increased activity later in the day, with brighter affect. Planning respite admit with [facility]. Is aware that he will not return to mother's home. We should not live together. It is time for me to have my life. Medication Compliance: Yes Side effects from medications: Yes (sedated, slowed) Attending Groups: Intermittent Review of Systems Acute medical concerns: No Medical Review of Systems: unchanged Review of Systems Review of Systems feeling slowed, sedated. Haldol is tapering. Mental Status Exam Mental Status Exam Patient Appearance: Appropriate Patient Orientation: Person, Place, Time and Situation Level of Consciousness: Awake and Alert Patient Behavior: Appropriate, Talkative and Good Eye Contact Mood Description: Calm and Angry Affect Description: Calm Patient Cognition Impaired: No Ability to Follow Directions: Fair Speech Pattern: Clear Memory Description: Intact Hallucinations: None (denies) Delusions: Paranoid Ideation (denies) Thought Process: Goal Oriented Thought Content: positive for Logical (on treatment) and positive for Suicidal Ideation (no) Depressive Symptoms: Thoughts of /Suicide (denies) Judgement: Fair Diagnostics Vital Signs (24Hr): Vital Signs - 24 hr 02/14/25 20:00 02/14/25 20:32 02/15/25 08:00 Temperature 97.7 F 97.7 F Pulse Rate 88 55 Respiratory Rate 16 Blood Pressure 137/73 137/73 143/86 H Pulse Oximetry 98 99 Oxygen Delivery Method Room Air Room Air BMI result Body Mass Index 41.3 Labs 02/07/25 08:41 02/07/25 08:41 Medications Medications Current Medications Acetaminophen (Acetaminophen 325 Mg Tablet) 650 mg PO Q6H PRN PRN Reason: Headache/Pain, Scale 1-10 Last Admin: 02/14/25 09:06 Dose: 650 mg Al Hydroxide/Mg Hydroxide (Magnesium Hydrox/Alum Hydrox 30 Ml Oral.Susp) 30 ml PO Q6H PRN PRN Reason: Heartburn/Nausea Bisacodyl (Bisacodyl 5 Mg Tablet.Dr) 10 mg PO DAILY PRN PRN Reason: Constipation Last Admin: 02/11/25 17:40 Dose: 10 mg Clonidine HCl (Clonidine Hcl 0.2 Mg Tablet) 0.2 mg PO BEDTIME COUNTS INCLUDE 234 BEDS AT THE [facility]; Protocol Last Admin: 02/14/25 20:32 Dose: 0.2 mg Haloperidol (Haloperidol 5 Mg Tablet) 10 mg PO BID PRN PRN Reason: psychosis/agitation Haloperidol (Haloperidol 5 Mg Tablet) 20 mg PO BID COUNTS INCLUDE 234 BEDS AT THE [facility] Last Admin: 02/15/25 08:26 Dose: 20 mg Hydroxyzine HCl (Hydroxyzine Hcl 25 Mg Tablet) 25 mg PO Q6H PRN PRN Reason: mild anxiety Last Admin: 02/08/25 20:50 Dose: 25 mg Ibuprofen (Ibuprofen 800 Mg Tablet) 800 mg PO Q8H PRN PRN Reason: back pain Last Admin: 02/14/25 11:34 Dose: 800 mg Magnesium Citrate (Magnesium Citrate 300 Ml Solution) 300 ml PO ONCE PRN PRN Reason: severe constipation Last Admin: 02/11/25 20:49 Dose: 300 ml Magnesium Hydroxide (Milk Of Magnesia 30 Ml Oral.Susp) 30 ml PO DAILY PRN PRN Reason: Constipation Last Admin: 02/14/25 14:51 Dose: 30 ml Nicotine (Nicotine 21 Mg Patch.Td24) 21 mg TRANSDERMA DAILY PRN PRN Reason: smoking cessation Non-Formulary Medication (Abilify Maintena 300 Mg Er Inj) 300 mg IM Q30D COUNTS INCLUDE 234 BEDS AT THE [facility] Last Admin: 02/11/25 11:26 Dose: 300 mg Olanzapine (Olanzapine 10 Mg Tablet) 10 mg PO TID PRN PRN Reason: agitation Sumatriptan Succinate (Sumatriptan Succinate 100 Mg Tablet) 100 mg PO DAILY PRN PRN Reason: migraine Topiramate (Topiramate 100 Mg Tablet) 200 mg PO BEDTIME COUNTS INCLUDE 234 BEDS AT THE [facility] Last Admin: 02/14/25 20:30 Dose: 200 mg Trazodone HCl (Trazodone Hcl 50 Mg Tablet) 50 mg PO BEDTIME MRX1 PRN PRN Reason: Insomnia Last Admin: 02/14/25 20:32 Dose: 50 mg Allergies Allergies Allergy/AdvReac Type Severity Reaction Status Date / Time paliperidone [From Invega] Allergy Itching Verified 01/20/25 16:47 Assessment & Plan Assessment & Plan (1) Schizophrenia: Status: Acute Code(s): F20.9 - Schizophrenia, unspecified Plan Patient is a 24-year-old male with history of schizophrenia, off Invega Sustenna for about 3 months who presents with i.e. compensated psychotic symptoms and aggression. Patient is a poor historian. He initially says he does not know why his mother wanted him to come to the hospital. He quickly became angry at law writer, starting to yell at law writer, intense and starting to posture, including as law writer walks away down the goodman I wanted different doctor... I do not trust you and that that law writer is a shit doctor. Vector Control Assistant needed to terminate conversation and get away from patient for safety. Earlier he got angry at a nurse and also swore at her. Mother provided some collateral to staff. Apparently patient has been stable since his hospitalization when he was 16 years old, benefitting from Invega Sustenna; he attended [employer] school and graduated. It is not clear if Invega Sustenna stopped working or he refused to take it but he has been decompensating over the past 3 months and has had to other recent hospitalizations. Mother says that he is scaring her and the neighbors;,paranoid and delusional frequently self dialoguing. Prior to coming to the hospital he tried to jump out of moving car. Formulation/clinical reasoning: Decompensated schizophrenia; either patient stopped taking Invega Sustenna or it stopped working. At the mentioned of the word Invega patient became extremely angry. However he was started on other medications (at other admission? ) which she is amenable to taking, including Abilify and Haldol so will continue these; law writer will increase Haldol to 10 mg t.i.d., up from b.i.d.. -will give patient single room for safety of peers, since patient easily provoked Hospital course: 01/23 Patient seems to be more calm today. Guarded on approach and little to say to law writer other than that he is doing all right and has no complaints or requests and says nothing is on his mind. Vector Control Assistant left it there so as not to accidentally provoke. Patient taking prescribed medication. To nursing staff patient said I was tormented yesterday... 01/24 Continue plan/regime. 01/25 Suggested to pt a trial of Allie Bingham per his OP MD Dr. Feng Villa. He will consider. 01/26 Refuses all LILLY suggestions. 01/27 Continue regime/plan 01/28 Some breakthrough sx. Increase Haldol to 10 mg qid 01/30/25 - CTP 02/01/25- Continue regime/plan 02/02/26 On 02/03 increase Haldol to 30 mg bid (an increase of 20 mg) 02/03/25- continue regime/plan 02/06- Continue tx 02/07: Observed pacing unit hallway. Guarded. Responding with one word answers. Patient reports feeling okay today; pt reports he doesn't need anything . He reports he has been pacing the unit hallway for exercise. denies SI/HI/VH/AH. medication compliant. continue current tx plan. 02/09: Continue tx 02/10: Continue tx. Await Maintena arrival. 02/11: Maintena given. Observe for SE 02/12 abdominal pain resolved with bowel movement; patient overall in behavioral control; continue current treatment plan 02/13 remains in good behavioral and impulse control; denies psychotic symptoms -asking for [place] (which he says he gets as outpt) 02/15: Decrease Haldol to 15 mg daily. Plan: CV Q 15 minute checks started on allie Lema Continue?Allie PO allie. Continue Clonidine 0.2 mg q.h.s. Continue Topamax 200 mg q.h.s. Haldol 10 mg t.i.d., up from b.i.d. Reason for continued inpatient stay Substantial Risk for: rapid decompensation Time Spent With Patient Time: Total time managing care of this patient today ____ minutes.
[2025-02-15 20:00] VITALS: BP 144/68; PULSE 94; TEMP 36.6; O2SAT 97
[2025-02-15 20:11] VITALS: BP 144/68
[2025-02-15] MEDS: cloNIDine HCL 0.2 MG TABLET PO (20:11)
[2025-02-15] MEDS: HaloperidoL 5 MG TABLET 15 MG PO (20:11)
[2025-02-15] MEDS: Topiramate 100 MG TABLET 200 MG PO (20:11)
[2025-02-15] MEDS: traZODone HCL 50 MG TABLET PO (20:12)
[2025-02-16 08:00] VITALS: BP 126/79; PULSE 74; RESP 18; TEMP 36.4; O2SAT 99
[2025-02-16] MEDS: HaloperidoL 5 MG TABLET 15 MG PO ×2 (08:21→21:26)
--- NOTE | 2025-02-16 09:35 | P.PNPSI_ITS ---
Subjective Subjective Reason For Visit: Pyschosis Diagnostics Vital Signs (24Hr): Vital Signs - 24 hr 02/15/25 20:00 02/15/25 20:11 Temperature 97.8 F Pulse Rate 94 Blood Pressure 144/68 H 144/68 H Pulse Oximetry 97 Oxygen Delivery Method Room Air BMI result Body Mass Index 41.3 Labs 02/07/25 08:41 02/07/25 08:41 Medications Medications Current Medications Acetaminophen (Acetaminophen 325 Mg Tablet) 650 mg PO Q6H PRN PRN Reason: Headache/Pain, Scale 1-10 Last Admin: 02/14/25 09:06 Dose: 650 mg Al Hydroxide/Mg Hydroxide (Magnesium Hydrox/Alum Hydrox 30 Ml Oral.Susp) 30 ml PO Q6H PRN PRN Reason: Heartburn/Nausea Bisacodyl (Bisacodyl 5 Mg Tablet.Dr) 10 mg PO DAILY PRN PRN Reason: Constipation Last Admin: 02/11/25 17:40 Dose: 10 mg Clonidine HCl (Clonidine Hcl 0.2 Mg Tablet) 0.2 mg PO BEDTIME [facility]; Protocol Last Admin: 02/15/25 20:11 Dose: 0.2 mg Haloperidol (Haloperidol 5 Mg Tablet) 10 mg PO BID PRN PRN Reason: psychosis/agitation Haloperidol (Haloperidol 5 Mg Tablet) 15 mg PO BID [facility] Last Admin: 02/16/25 08:21 Dose: 15 mg Hydroxyzine HCl (Hydroxyzine Hcl 25 Mg Tablet) 25 mg PO Q6H PRN PRN Reason: mild anxiety Last Admin: 02/08/25 20:50 Dose: 25 mg Ibuprofen (Ibuprofen 800 Mg Tablet) 800 mg PO Q8H PRN PRN Reason: back pain Last Admin: 02/14/25 11:34 Dose: 800 mg Magnesium Citrate (Magnesium Citrate 300 Ml Solution) 300 ml PO ONCE PRN PRN Reason: severe constipation Last Admin: 02/11/25 20:49 Dose: 300 ml Magnesium Hydroxide (Milk Of Magnesia 30 Ml Oral.Susp) 30 ml PO DAILY PRN PRN Reason: Constipation Last Admin: 02/14/25 14:51 Dose: 30 ml Nicotine (Nicotine 21 Mg Patch.Td24) 21 mg TRANSDERMA DAILY PRN PRN Reason: smoking cessation Non-Formulary Medication (Abilify Maintena 300 Mg Er Inj) 300 mg IM Q30D [facility]ILY Last Admin: 02/11/25 11:26 Dose: 300 mg Olanzapine (Olanzapine 10 Mg Tablet) 10 mg PO TID PRN PRN Reason: agitation Sumatriptan Succinate (Sumatriptan Succinate 100 Mg Tablet) 100 mg PO DAILY PRN PRN Reason: migraine Topiramate (Topiramate 100 Mg Tablet) 200 mg PO BEDTIME [facility] Last Admin: 02/15/25 20:11 Dose: 200 mg Trazodone HCl (Trazodone Hcl 50 Mg Tablet) 50 mg PO BEDTIME MRX1 PRN PRN Reason: Insomnia Last Admin: 02/15/25 20:12 Dose: 50 mg Allergies Allergies Allergy/AdvReac Type Severity Reaction Status Date / Time paliperidone [From Invega] Allergy Itching Verified 01/20/25 16:47 Assessment & Plan Assessment & Plan (1) Schizophrenia: Status: Acute Code(s): F20.9 - Schizophrenia, unspecified Plan Patient is a 24-year-old male with history of schizophrenia, off Invega Sustenna for about 3 months who presents with i.e. compensated psychotic symptoms and aggression. Patient is a poor historian. He initially says he does not know why his mother wanted him to come to the hospital. He quickly became angry at senior medical writer, starting to yell at senior medical writer, intense and starting to posture, including as senior medical writer walks away down the goodman I wanted different doctor... I do not trust you and that that senior medical writer is a shit doctor. Diamond Die Driller needed to terminate conversation and get away from patient for safety. Earlier he got angry at a nurse and also swore at her. Mother provided some collateral to staff. Apparently patient has been stable since his hospitalization when he was 16 years old, benefitting from Invega Sustenna; he attended [employer] and graduated. It is not clear if Invega Sustenna stopped working or he refused to take it but he has been decompensating over the past 3 months and has had to other recent hospitalizations. Mother says that he is scaring her and the neighbors;,paranoid and delusional frequently self dialoguing. Prior to coming to the hospital he tried to jump out of moving car. Formulation/clinical reasoning: Decompensated schizophrenia; either patient stopped taking Invega Sustenna or it stopped working. At the mentioned of the word Invega patient became extremely angry. However he was started on other medications (at other admission? ) which she is amenable to taking, including Abilify and Haldol so will continue these; senior medical writer will increase Haldol to 10 mg t.i.d., up from b.i.d.. -will give patient single room for safety of peers, since patient easily provoked Hospital course: 01/23 Patient seems to be more calm today. Guarded on approach and little to say to senior medical writer other than that he is doing all right and has no complaints or requests and says nothing is on his mind. Diamond Die Driller left it there so as not to accidentally provoke. Patient taking prescribed medication. To nursing staff patient said I was tormented yesterday... 01/24 Continue plan/regime. 01/25 Suggested to pt a trial of Abilify Maintena per his OP MD Dr. Feng Villa. He will consider. 01/26 Refuses all LILLY suggestions. 01/27 Continue regime/plan 01/28 Some breakthrough sx. Increase Haldol to 10 mg qid 01/30/25 - CTP 02/01/25- Continue regime/plan 02/02/26 On 02/03 increase Haldol to 30 mg bid (an increase of 20 mg) 02/03/25- continue regime/plan 02/06- Continue tx 02/07: Observed pacing unit hallway. Guarded. Responding with one word answers. Patient reports feeling okay today; pt reports he doesn't need anything . He reports he has been pacing the unit hallway for exercise. denies SI/HI/VH/AH. medication compliant. continue current tx plan. 02/09: Continue tx 02/10: Continue tx. Await Maintena arrival. 02/11: Maintena given. Observe for SE 02/12 abdominal pain resolved with bowel movement; patient overall in behavioral control; continue current treatment plan 02/13 remains in good behavioral and impulse control; denies psychotic symptoms -asking for Magalyro (which he says he gets as outpt) Plan: CV Q 15 minute checks started on abilify Maintenna Continue?Abilify PO abilify. Continue Clonidine 0.2 mg q.h.s. Continue Topamax 200 mg q.h.s. Haldol 10 mg t.i.d., up from b.i.d. Time Spent With Patient Time: Total time managing care of this patient today ____ minutes.
--- NOTE | 2025-02-16 13:56 | P.PNPSI_ITS ---
Subjective Subjective Date of Service: 02/16/25 Reason For Visit: Pyschosis Subjective Notes: Conditional Voluntary Healthcare Proxy: No Guardianship: No Medical Problems Affecting Mental Status: No Interim History: Patient notes that he is in a good mood. He has been taking his medications as prescribed and tolerating them. He denies anxiety anxiety and depression. He denies SI/HI, AVH. He is looking forward to be discharged so that he can find a job and a place to live independent of his mother. Medication Compliance: Yes Side effects from medications: No Attending Groups: Intermittent Review of Systems Acute medical concerns: No Medical Review of Systems: unchanged Mental Status Exam Mental Status Exam Narrative: Mental Status Exam Narrative: Appearance: Casually dressed Behavior: Calm and cooperative throughout the interview. Eye contact is appropriate, and there are no signs of psychomotor agitation or retardation Speech: Normal volume and prosody Thought process logical and goal-directed Thought content: Future oriented no self-harming thoughts Mood: Euthymic Affect:Constricted, mood-congruent SI:denies HI:denies VH/AH:none Delusions: None Insight/judgment: Fair insight and judgment Memory/cog: Alert, oriented x 4. grossly intact to conversational testing Diagnostics Vital Signs (24Hr): Vital Signs - 24 hr 02/15/25 20:00 02/15/25 20:11 02/16/25 08:00 Temperature 97.8 F 97.6 F Pulse Rate 94 74 Respiratory Rate 18 Blood Pressure 144/68 H 144/68 H 126/79 Pulse Oximetry 97 99 Oxygen Delivery Method Room Air Room Air BMI result Body Mass Index 41.3 Labs 02/07/25 08:41 02/07/25 08:41 Medications Medications Current Medications Acetaminophen (Acetaminophen 325 Mg Tablet) 650 mg PO Q6H PRN PRN Reason: Headache/Pain, Scale 1-10 Last Admin: 02/14/25 09:06 Dose: 650 mg Al Hydroxide/Mg Hydroxide (Magnesium Hydrox/Alum Hydrox 30 Ml Oral.Susp) 30 ml PO Q6H PRN PRN Reason: Heartburn/Nausea Bisacodyl (Bisacodyl 5 Mg Tablet.Dr) 10 mg PO DAILY PRN PRN Reason: Constipation Last Admin: 02/11/25 17:40 Dose: 10 mg Clonidine HCl (Clonidine Hcl 0.2 Mg Tablet) 0.2 mg PO BEDTIME [facility]; Protocol Last Admin: 02/15/25 20:11 Dose: 0.2 mg Haloperidol (Haloperidol 5 Mg Tablet) 10 mg PO BID PRN PRN Reason: psychosis/agitation Haloperidol (Haloperidol 5 Mg Tablet) 15 mg PO BID [facility] Last Admin: 02/16/25 08:21 Dose: 15 mg Hydroxyzine HCl (Hydroxyzine Hcl 25 Mg Tablet) 25 mg PO Q6H PRN PRN Reason: mild anxiety Last Admin: 02/08/25 20:50 Dose: 25 mg Ibuprofen (Ibuprofen 800 Mg Tablet) 800 mg PO Q8H PRN PRN Reason: back pain Last Admin: 02/14/25 11:34 Dose: 800 mg Magnesium Citrate (Magnesium Citrate 300 Ml Solution) 300 ml PO ONCE PRN PRN Reason: severe constipation Last Admin: 02/11/25 20:49 Dose: 300 ml Magnesium Hydroxide (Milk Of Magnesia 30 Ml Oral.Susp) 30 ml PO DAILY PRN PRN Reason: Constipation Last Admin: 02/14/25 14:51 Dose: 30 ml Nicotine (Nicotine 21 Mg Patch.Td24) 21 mg TRANSDERMA DAILY PRN PRN Reason: smoking cessation Non-Formulary Medication (Abilify Maintena 300 Mg Er Inj) 300 mg IM Q30D [facility] Last Admin: 02/11/25 11:26 Dose: 300 mg Olanzapine (Olanzapine 10 Mg Tablet) 10 mg PO TID PRN PRN Reason: agitation Sumatriptan Succinate (Sumatriptan Succinate 100 Mg Tablet) 100 mg PO DAILY PRN PRN Reason: migraine Topiramate (Topiramate 100 Mg Tablet) 200 mg PO BEDTIME [facility] Last Admin: 02/15/25 20:11 Dose: 200 mg Trazodone HCl (Trazodone Hcl 50 Mg Tablet) 50 mg PO BEDTIME MRX1 PRN PRN Reason: Insomnia Last Admin: 02/15/25 20:12 Dose: 50 mg Allergies Allergies Allergy/AdvReac Type Severity Reaction Status Date / Time paliperidone [From Invega] Allergy Itching Verified 01/20/25 16:47 Assessment & Plan Assessment & Plan (1) Schizophrenia: Status: Acute Code(s): F20.9 - Schizophrenia, unspecified Plan Patient is a 24-year-old male with history of schizophrenia, off Invega Sustenna for about 3 months who presents with i.e. compensated psychotic symptoms and aggression. Patient is a poor historian. He initially says he does not know why his mother wanted him to come to the hospital. He quickly became angry at marketing writer, starting to yell at marketing writer, intense and starting to posture, including as marketing writer walks away down the goodman I wanted different doctor... I do not trust you and that that marketing writer is a shit doctor. Supervisor Fertilizer needed to terminate conversation and get away from patient for safety. Earlier he got angry at a nurse and also swore at her. Mother provided some collateral to staff. Apparently patient has been stable since his hospitalization when he was 16 years old, benefitting from Invega Sustenna; he attended [employer] school and graduated. It is not clear if Invega Sustenna stopped working or he refused to take it but he has been decompensating over the past 3 months and has had to other recent hospitalizations. Mother says that he is scaring her and the neighbors;,paranoid and delusional frequently self dialoguing. Prior to coming to the hospital he tried to jump out of moving car. Formulation/clinical reasoning: Decompensated schizophrenia; either patient stopped taking Invega Sustenna or it stopped working. At the mentioned of the word Invega patient became extremely angry. However he was started on other medications (at other admission? ) which she is amenable to taking, including Abilify and Haldol so will continue these; marketing writer will increase Haldol to 10 mg t.i.d., up from b.i.d.. -will give patient single room for safety of peers, since patient easily provoked Hospital course: 01/23 Patient seems to be more calm today. Guarded on approach and little to say to marketing writer other than that he is doing all right and has no complaints or requests and says nothing is on his mind. Supervisor Fertilizer left it there so as not to accidentally provoke. Patient taking prescribed medication. To nursing staff patient said I was tormented yesterday... 01/24 Continue plan/regime. 01/25 Suggested to pt a trial of Allie Bingham per his OP MD Dr. Feng Villa. He will consider. 01/26 Refuses all LILLY suggestions. 01/27 Continue regime/plan 01/28 Some breakthrough sx. Increase Haldol to 10 mg qid 01/30/25 - CTP 02/01/25- Continue regime/plan 02/02/26 On 02/03 increase Haldol to 30 mg bid (an increase of 20 mg) 02/03/25- continue regime/plan 02/06- Continue tx 02/07: Observed pacing unit hallway. Guarded. Responding with one word answers. Patient reports feeling okay today; pt reports he doesn't need anything . He reports he has been pacing the unit hallway for exercise. denies SI/HI/VH/AH. medication compliant. continue current tx plan. 02/09: Continue tx 02/10: Continue tx. Await Maintena arrival. 02/11: Maintena given. Observe for SE 02/12 abdominal pain resolved with bowel movement; patient overall in behavioral control; continue current treatment plan 02/13 remains in good behavioral and impulse control; denies psychotic symptoms -asking for Munjaro (which he says he gets as outpt) 02/15: Decrease Haldol to 15 mg daily 02/16: Continue current regime/plan. Haldol was decreased to 15 mg twice daily yesterday. Planning long-term respit admit with DDS. Plan: CV Q 15 minute checks started on abilify Maintenna Continue?Abilify PO abilify. Continue Clonidine 0.2 mg q.h.s. Continue Topamax 200 mg q.h.s. Haldol 10 mg t.i.d., up from b.i.d. Patient educated on: medication risk/benefits and therapeutic strategies Reason for continued inpatient stay Substantial Risk for: rapid decompensation Time Spent With Patient Time: Total time managing care of this patient today ____ minutes.
[2025-02-16 19:39] VITALS: BP 126/67; PULSE 61; RESP 16; TEMP 36.4; O2SAT 99
[2025-02-16] MEDS: Magnesium Hydrox/Alum Hydrox 30 ML ORAL.SUSP PO (21:25)
[2025-02-16 21:26] VITALS: BP 127/72
[2025-02-16] MEDS: cloNIDine HCL 0.2 MG TABLET PO (21:26)
[2025-02-16] MEDS: traZODone HCL 50 MG TABLET PO (21:27)
[2025-02-16] MEDS: Topiramate 100 MG TABLET 200 MG PO (21:27)
[2025-02-17 07:00] VITALS: BMI 41.3
[2025-02-17 08:27] VITALS: BP 115/71; PULSE 53; TEMP 36.8; O2SAT 99
[2025-02-17] MEDS: HaloperidoL 5 MG TABLET 15 MG PO ×2 (09:38→22:54)
--- NOTE | 2025-02-17 11:12 | P.PNPSI_ITS ---
Subjective Subjective Date of Service: 02/17/25 Reason For Visit: Pyschosis Subjective Notes: Conditional Voluntary Healthcare Proxy: No Guardianship: No Medical Problems Affecting Mental Status: No Interim History: Pt reports feeling better. Reports he has two housing options from [facility] and [facility]. Pt to meet with [facility] today to discuss his needs. Denies feeling overmedicated. Spontaneous smiling, no angry outbursts when we met. States he feels calm, hopeful . Denies SI,HI,AH, VH. Appears less preoccupied today. Medication Compliance: Yes Side effects from medications: No Attending Groups: Intermittent Review of Systems Acute medical concerns: No Medical Review of Systems: unchanged Review of Systems Review of Systems Denies Mental Status Exam Mental Status Exam Patient Appearance: Appropriate Patient Orientation: Person, Place, Time and Situation Level of Consciousness: Awake and Alert Patient Behavior: Appropriate, Talkative and Good Eye Contact Mood Description: Calm and Angry Affect Description: Calm Patient Cognition Impaired: No Ability to Follow Directions: Fair Speech Pattern: Clear Memory Description: Intact Hallucinations: None (denies) Delusions: Paranoid Ideation (denies) Thought Process: Goal Oriented Thought Content: positive for Logical (on treatment) and positive for Suicidal Ideation (no) Depressive Symptoms: Thoughts of /Suicide (denies) Judgement: Fair Diagnostics Vital Signs (24Hr): Vital Signs - 24 hr 02/16/25 19:39 02/16/25 21:26 02/17/25 08:27 Temperature 97.6 F 98.3 F Pulse Rate 61 53 Respiratory Rate 16 Blood Pressure 126/67 127/72 115/71 Pulse Oximetry 99 99 Oxygen Delivery Method Room Air Room Air BMI result Body Mass Index 41.3 Labs 02/07/25 08:41 02/07/25 08:41 Medications Medications Current Medications Acetaminophen (Acetaminophen 325 Mg Tablet) 650 mg PO Q6H PRN PRN Reason: Headache/Pain, Scale 1-10 Last Admin: 02/14/25 09:06 Dose: 650 mg Al Hydroxide/Mg Hydroxide (Magnesium Hydrox/Alum Hydrox 30 Ml Oral.Susp) 30 ml PO Q6H PRN PRN Reason: Heartburn/Nausea Last Admin: 02/16/25 21:25 Dose: 30 ml Bisacodyl (Bisacodyl 5 Mg Tablet.Dr) 10 mg PO DAILY PRN PRN Reason: Constipation Last Admin: 02/11/25 17:40 Dose: 10 mg Clonidine HCl (Clonidine Hcl 0.2 Mg Tablet) 0.2 mg PO BEDTIME [facility]; Protocol Last Admin: 02/16/25 21:26 Dose: 0.2 mg Haloperidol (Haloperidol 5 Mg Tablet) 10 mg PO BID PRN PRN Reason: psychosis/agitation Haloperidol (Haloperidol 5 Mg Tablet) 15 mg PO BID [facility] Last Admin: 02/17/25 09:38 Dose: 15 mg Hydroxyzine HCl (Hydroxyzine Hcl 25 Mg Tablet) 25 mg PO Q6H PRN PRN Reason: mild anxiety Last Admin: 02/08/25 20:50 Dose: 25 mg Ibuprofen (Ibuprofen 800 Mg Tablet) 800 mg PO Q8H PRN PRN Reason: back pain Last Admin: 02/14/25 11:34 Dose: 800 mg Magnesium Citrate (Magnesium Citrate 300 Ml Solution) 300 ml PO ONCE PRN PRN Reason: severe constipation Last Admin: 02/11/25 20:49 Dose: 300 ml Magnesium Hydroxide (Milk Of Magnesia 30 Ml Oral.Susp) 30 ml PO DAILY PRN PRN Reason: Constipation Last Admin: 02/14/25 14:51 Dose: 30 ml Nicotine (Nicotine 21 Mg Patch.Td24) 21 mg TRANSDERMA DAILY PRN PRN Reason: smoking cessation Non-Formulary Medication (Abilify Maintena 300 Mg Er Inj) 300 mg IM Q30D [facility] Last Admin: 02/11/25 11:26 Dose: 300 mg Olanzapine (Olanzapine 10 Mg Tablet) 10 mg PO TID PRN PRN Reason: agitation Sumatriptan Succinate (Sumatriptan Succinate 100 Mg Tablet) 100 mg PO DAILY PRN PRN Reason: migraine Topiramate (Topiramate 100 Mg Tablet) 200 mg PO BEDTIME [facility] Last Admin: 02/16/25 21:27 Dose: 200 mg Trazodone HCl (Trazodone Hcl 50 Mg Tablet) 50 mg PO BEDTIME MRX1 PRN PRN Reason: Insomnia Last Admin: 02/16/25 21:27 Dose: 50 mg Allergies Allergies Allergy/AdvReac Type Severity Reaction Status Date / Time paliperidone [From Invega] Allergy Itching Verified 01/20/25 16:47 Assessment & Plan Assessment & Plan (1) Schizophrenia: Status: Acute Code(s): F20.9 - Schizophrenia, unspecified Plan Patient is a 24-year-old male with history of schizophrenia, off Invega Sustenna for about 3 months who presents with i.e. compensated psychotic symptoms and aggression. Patient is a poor historian. He initially says he does not know why his mother wanted him to come to the hospital. He quickly became angry at senior underwriter, starting to yell at senior underwriter, intense and starting to posture, including as senior underwriter walks away down the goodman I wanted different doctor... I do not trust you and that that senior underwriter is a shit doctor. Requirements Engineer needed to terminate conversation and get away from patient for safety. Earlier he got angry at a nurse and also swore at her. Mother provided some collateral to staff. Apparently patient has been stable since his hospitalization when he was 16 years old, benefitting from Invega Sustenna; he attended [id number] and graduated. It is not clear if Invega Sustenna stopped working or he refused to take it but he has been decompensating over the past 3 months and has had to other recent hospitalizations. Mother says that he is scaring her and the neighbors;,paranoid and delusional frequently self dialoguing. Prior to coming to the hospital he tried to jump out of moving car. Formulation/clinical reasoning: Decompensated schizophrenia; either patient stopped taking Invega Sustenna or it stopped working. At the mentioned of the word Invega patient became extremely angry. However he was started on other medications (at other admission? ) which she is amenable to taking, including Abilify and Haldol so will continue these; senior underwriter will increase Haldol to 10 mg t.i.d., up from b.i.d.. -will give patient single room for safety of peers, since patient easily provoked Hospital course: 01/23 Patient seems to be more calm today. Guarded on approach and little to say to senior underwriter other than that he is doing all right and has no complaints or requests and says nothing is on his mind. Requirements Engineer left it there so as not to accidentally provoke. Patient taking prescribed medication. To nursing staff patient said I was tormented yesterday... 01/24 Continue plan/regime. 01/25 Suggested to pt a trial of Allie Bingham per his OP MD Dr. Feng Villa. He will consider. 01/26 Refuses all LILLY suggestions. 01/27 Continue regime/plan 01/28 Some breakthrough sx. Increase Haldol to 10 mg qid 01/30/25 - CTP 02/01/25- Continue regime/plan 02/02/26 On 02/03 increase Haldol to 30 mg bid (an increase of 20 mg) 02/03/25- continue regime/plan 02/06- Continue tx 02/07: Observed pacing unit hallway. Guarded. Responding with one word answers. Patient reports feeling okay today; pt reports he doesn't need anything . He reports he has been pacing the unit hallway for exercise. denies SI/HI/VH/AH. medication compliant. continue current tx plan. 02/09: Continue tx 02/10: Continue tx. Await Maintena arrival. 02/11: Maintena given. Observe for SE 02/12 abdominal pain resolved with bowel movement; patient overall in behavioral control; continue current treatment plan 02/13 remains in good behavioral and impulse control; denies psychotic symptoms -asking for Magalyro (which he says he gets as outpt) 02/15: Decrease Haldol to 15 mg daily 02/16: Continue current regime/plan. Haldol was decreased to 15 mg twice daily yesterday. Planning long-term respit admit with DDS. 02/17: Continue tx. Plan: CV Q 15 minute checks started on abilify Maintenna Continue?Abilify PO abilify. Continue Clonidine 0.2 mg q.h.s. Continue Topamax 200 mg q.h.s. Haldol 10 mg t.i.d., up from b.i.d. Reason for continued inpatient stay Substantial Risk for: rapid decompensation Time Spent With Patient Time: Total time managing care of this patient today ____ minutes.
[2025-02-17] MEDS: Milk of Magnesia 30 ML ORAL.SUSP PO (11:15)
[2025-02-17 20:00] VITALS: BP 140/71; PULSE 86; RESP 16; TEMP 36.6; O2SAT 100
[2025-02-17 22:53] VITALS: BP 140/71
[2025-02-17] MEDS: cloNIDine HCL 0.2 MG TABLET PO (22:53)
[2025-02-17] MEDS: Topiramate 100 MG TABLET 200 MG PO (22:55)
[2025-02-17] MEDS: traZODone HCL 50 MG TABLET PO (22:55)
[2025-02-18 08:00] VITALS: BP 117/66; PULSE 54; TEMP 36.3; O2SAT 97
[2025-02-18] MEDS: HaloperidoL 5 MG TABLET 15 MG PO ×2 (09:09→21:36)
--- NOTE | 2025-02-18 09:52 | HO.PSYCHPN ---
Subjective Subjective Date of Service: 02/18/25 Reason For Visit: Pyschosis Subjective Notes: Conditional Voluntary Healthcare Proxy: No Guardianship: No Medical Problems Affecting Mental Status: No Interim History: Pt reports feeling well. Denies feeling overmedicated. Pleased with [facility] meeting on 02/17. States he has housing options with both [facility] and [facility]- we are not certain this is accurate To some groups today, some time with peers, some reading in common areas Reviewed care with pt's mother who found him tired this week when she visited, however she sees a positive shift in mood overall. Medication Compliance: Yes Side effects from medications: No Attending Groups: Intermittent Review of Systems Acute medical concerns: No Review of Systems Review of Systems Denies Mental Status Exam Mental Status Exam Patient Appearance: Appropriate Patient Orientation: Person, Place, Time and Situation Level of Consciousness: Awake and Alert Patient Behavior: Appropriate, Talkative and Good Eye Contact Mood Description: Calm and Appropriate Affect Description: Calm and Appropriate Patient Cognition Impaired: No Ability to Follow Directions: Fair Speech Pattern: Clear Memory Description: Intact Hallucinations: None (denies) Delusions: Paranoid Ideation (denies) Thought Process: Goal Oriented Thought Content: positive for Logical (on treatment) and positive for Suicidal Ideation (no) Depressive Symptoms: Thoughts of /Suicide (denies) Judgement: Fair Diagnostics Vital Signs (24Hr): Vital Signs - 24 hr 02/17/25 20:00 02/17/25 22:53 02/18/25 08:00 Temperature 97.8 F 97.3 F Pulse Rate 86 54 Respiratory Rate 16 Blood Pressure 140/71 H 140/71 H 117/66 Pulse Oximetry 100 97 Oxygen Delivery Method Room Air Room Air BMI result Body Mass Index 41.3 Labs 02/07/25 08:41 02/07/25 08:41 Medications Medications Current Medications Acetaminophen (Acetaminophen 325 Mg Tablet) 650 mg PO Q6H PRN PRN Reason: Headache/Pain, Scale 1-10 Last Admin: 02/14/25 09:06 Dose: 650 mg Al Hydroxide/Mg Hydroxide (Magnesium Hydrox/Alum Hydrox 30 Ml Oral.Susp) 30 ml PO Q6H PRN PRN Reason: Heartburn/Nausea Last Admin: 02/16/25 21:25 Dose: 30 ml Bisacodyl (Bisacodyl 5 Mg Tablet.Dr) 10 mg PO DAILY PRN PRN Reason: Constipation Last Admin: 02/11/25 17:40 Dose: 10 mg Clonidine HCl (Clonidine Hcl 0.2 Mg Tablet) 0.2 mg PO BEDTIME [facility]; Protocol Last Admin: 02/17/25 22:53 Dose: 0.2 mg Haloperidol (Haloperidol 5 Mg Tablet) 10 mg PO BID PRN PRN Reason: psychosis/agitation Haloperidol (Haloperidol 5 Mg Tablet) 15 mg PO BID [facility] Last Admin: 02/18/25 09:09 Dose: 15 mg Hydroxyzine HCl (Hydroxyzine Hcl 25 Mg Tablet) 25 mg PO Q6H PRN PRN Reason: mild anxiety Last Admin: 02/08/25 20:50 Dose: 25 mg Ibuprofen (Ibuprofen 800 Mg Tablet) 800 mg PO Q8H PRN PRN Reason: back pain Last Admin: 02/14/25 11:34 Dose: 800 mg Magnesium Citrate (Magnesium Citrate 300 Ml Solution) 300 ml PO ONCE PRN PRN Reason: severe constipation Last Admin: 02/11/25 20:49 Dose: 300 ml Magnesium Hydroxide (Milk Of Magnesia 30 Ml Oral.Susp) 30 ml PO DAILY PRN PRN Reason: Constipation Last Admin: 02/17/25 11:15 Dose: 30 ml Nicotine (Nicotine 21 Mg Patch.Td24) 21 mg TRANSDERMA DAILY PRN PRN Reason: smoking cessation Non-Formulary Medication (Abilify Maintena 300 Mg Er Inj) 300 mg IM Q30D [facility] Last Admin: 02/11/25 11:26 Dose: 300 mg Olanzapine (Olanzapine 10 Mg Tablet) 10 mg PO TID PRN PRN Reason: agitation Sumatriptan Succinate (Sumatriptan Succinate 100 Mg Tablet) 100 mg PO DAILY PRN PRN Reason: migraine Topiramate (Topiramate 100 Mg Tablet) 200 mg PO BEDTIME [facility] Last Admin: 02/17/25 22:55 Dose: 200 mg Trazodone HCl (Trazodone Hcl 50 Mg Tablet) 50 mg PO BEDTIME MRX1 PRN PRN Reason: Insomnia Last Admin: 02/17/25 22:55 Dose: 50 mg Allergies Allergies Allergy/AdvReac Type Severity Reaction Status Date / Time paliperidone [From Invega] Allergy Itching Verified 01/20/25 16:47 Assessment & Plan Assessment & Plan (1) Schizophrenia: Status: Acute Code(s): F20.9 - Schizophrenia, unspecified Plan Patient is a 24-year-old male with history of schizophrenia, off Invega Sustenna for about 3 months who presents with i.e. compensated psychotic symptoms and aggression. Patient is a poor historian. He initially says he does not know why his mother wanted him to come to the hospital. He quickly became angry at sba underwriter, starting to yell at sba underwriter, intense and starting to posture, including as sba underwriter walks away down the goodman I wanted different doctor... I do not trust you and that that sba underwriter is a shit doctor. Oceanographic Meteorologist needed to terminate conversation and get away from patient for safety. Earlier he got angry at a nurse and also swore at her. Mother provided some collateral to staff. Apparently patient has been stable since his hospitalization when he was 16 years old, benefitting from Invega Sustenna; he attended [employer] and graduated. It is not clear if Invega Sustenna stopped working or he refused to take it but he has been decompensating over the past 3 months and has had to other recent hospitalizations. Mother says that he is scaring her and the neighbors;,paranoid and delusional frequently self dialoguing. Prior to coming to the hospital he tried to jump out of moving car. Formulation/clinical reasoning: Decompensated schizophrenia; either patient stopped taking Invega Sustenna or it stopped working. At the mentioned of the word Invega patient became extremely angry. However he was started on other medications (at other admission? ) which she is amenable to taking, including Abilify and Haldol so will continue these; sba underwriter will increase Haldol to 10 mg t.i.d., up from b.i.d.. -will give patient single room for safety of peers, since patient easily provoked Hospital course: 01/23 Patient seems to be more calm today. Guarded on approach and little to say to sba underwriter other than that he is doing all right and has no complaints or requests and says nothing is on his mind. Oceanographic Meteorologist left it there so as not to accidentally provoke. Patient taking prescribed medication. To nursing staff patient said I was tormented yesterday... 01/24 Continue plan/regime. 01/25 Suggested to pt a trial of Allie Bingham per his OP MD Dr. Feng Villa. He will consider. 01/26 Refuses all LILLY suggestions. 5/1 Continue regime/plan 01/28 Some breakthrough sx. Increase Haldol to 10 mg qid 01/30/25 - CTP 02/01/25- Continue regime/plan 02/02/26 On 02/03 increase Haldol to 30 mg bid (an increase of 20 mg) 02/03/25- continue regime/plan 02/06- Continue tx 02/07: Observed pacing unit hallway. Guarded. Responding with one word answers. Patient reports feeling okay today; pt reports he doesn't need anything . He reports he has been pacing the unit hallway for exercise. denies SI/HI/VH/AH. medication compliant. continue current tx plan. 02/09: Continue tx 02/10: Continue tx. Await Maintena arrival. 02/11: Maintena given. Observe for SE 02/12 abdominal pain resolved with bowel movement; patient overall in behavioral control; continue current treatment plan 02/13 remains in good behavioral and impulse control; denies psychotic symptoms -asking for Edith (which he says he gets as outpt) 02/15: Decrease Haldol to 15 mg daily 02/16: Continue current regime/plan. Haldol was decreased to 15 mg twice daily yesterday. Planning long-term respit admit with DDS. 02/17: Continue tx. 02/18: Continue tx Plan: CV Q 15 minute checks started on abilify Maintenna Continue?Abilify PO abilify. Continue Clonidine 0.2 mg q.h.s. Continue Topamax 200 mg q.h.s. Haldol 10 mg t.i.d., up from b.i.d. Reason for continued inpatient stay Substantial Risk for: rapid decompensation Time Spent With Patient Time: Total time managing care of this patient today ____ minutes.
[2025-02-18] MEDS: Milk of Magnesia 30 ML ORAL.SUSP PO (17:34)
[2025-02-18 20:00] VITALS: BP 126/67; PULSE 88; TEMP 36.4; O2SAT 100
[2025-02-18] MEDS: Topiramate 100 MG TABLET 200 MG PO (21:36)
[2025-02-18] MEDS: cloNIDine HCL 0.2 MG TABLET PO (21:37)
[2025-02-18] MEDS: traZODone HCL 50 MG TABLET PO (21:37)
[2025-02-19 08:00] VITALS: BP 113/54; PULSE 60; RESP 16; TEMP 36.3; O2SAT 98
[2025-02-19] MEDS: HaloperidoL 5 MG TABLET 15 MG PO ×2 (08:42→20:45)
--- NOTE | 2025-02-19 09:41 | HO.PSYCHPN ---
Subjective Subjective Date of Service: 02/19/25 Reason For Visit: Pyschosis Interim History: Pt reports feeling well. He has been calm on the unit. He is visible. Engaged. Some latency in response. To some groups today, some time with peers, some reading in common areas Denies SI/HI/AVH. Review of Systems Review of Systems Denies Yes all other systems are reviewed and are negative Mental Status Exam Mental Status Exam Narrative: Mental Status Exam Narrative: Appearance: Casually dressed Behavior: Calm and cooperative throughout the interview. Eye contact is appropriate, and there are no signs of psychomotor agitation or retardation Speech: Normal volume and prosody Thought process logical and goal-directed Thought content: Future oriented no self-harming thoughts Mood: Euthymic Affect:Constricted, mood-congruent SI:denies HI:denies VH/AH:none Delusions: None Insight/judgment: Fair insight and judgment Memory/cog: Alert, oriented x 4. grossly intact to conversational testing Patient Appearance: Appropriate Patient Orientation: Person, Place, Time and Situation Level of Consciousness: Awake and Alert Patient Behavior: Appropriate, Talkative and Good Eye Contact Mood Description: Calm and Appropriate Affect Description: Calm and Appropriate Patient Cognition Impaired: No Ability to Follow Directions: Fair Speech Pattern: Clear Memory Description: Intact Diagnostics Vital Signs (24Hr): Vital Signs - 24 hr 02/18/25 20:00 02/19/25 08:00 Temperature 97.6 F 97.4 F Pulse Rate 88 60 Respiratory Rate 16 Blood Pressure 126/67 113/54 L Pulse Oximetry 100 98 Oxygen Delivery Method Room Air Room Air BMI result Body Mass Index 41.3 Labs 02/07/25 08:41 02/07/25 08:41 Medications Medications Current Medications Acetaminophen (Acetaminophen 325 Mg Tablet) 650 mg PO Q6H PRN PRN Reason: Headache/Pain, Scale 1-10 Last Admin: 02/14/25 09:06 Dose: 650 mg Al Hydroxide/Mg Hydroxide (Magnesium Hydrox/Alum Hydrox 30 Ml Oral.Susp) 30 ml PO Q6H PRN PRN Reason: Heartburn/Nausea Last Admin: 02/16/25 21:25 Dose: 30 ml Bisacodyl (Bisacodyl 5 Mg Tablet.Dr) 10 mg PO DAILY PRN PRN Reason: Constipation Last Admin: 02/11/25 17:40 Dose: 10 mg Clonidine HCl (Clonidine Hcl 0.2 Mg Tablet) 0.2 mg PO BEDTIME [facility]; Protocol Last Admin: 02/18/25 21:37 Dose: 0.2 mg Haloperidol (Haloperidol 5 Mg Tablet) 10 mg PO BID PRN PRN Reason: psychosis/agitation Haloperidol (Haloperidol 5 Mg Tablet) 15 mg PO BID [facility] Last Admin: 02/19/25 08:42 Dose: 15 mg Hydroxyzine HCl (Hydroxyzine Hcl 25 Mg Tablet) 25 mg PO Q6H PRN PRN Reason: mild anxiety Last Admin: 02/08/25 20:50 Dose: 25 mg Ibuprofen (Ibuprofen 800 Mg Tablet) 800 mg PO Q8H PRN PRN Reason: back pain Last Admin: 02/14/25 11:34 Dose: 800 mg Magnesium Citrate (Magnesium Citrate 300 Ml Solution) 300 ml PO ONCE PRN PRN Reason: severe constipation Last Admin: 02/11/25 20:49 Dose: 300 ml Magnesium Hydroxide (Milk Of Magnesia 30 Ml Oral.Susp) 30 ml PO DAILY PRN PRN Reason: Constipation Last Admin: 02/18/25 17:34 Dose: 30 ml Nicotine (Nicotine 21 Mg Patch.Td24) 21 mg TRANSDERMA DAILY PRN PRN Reason: smoking cessation Non-Formulary Medication (Abilify Maintena 300 Mg Er Inj) 300 mg IM Q30D [facility] Last Admin: 02/11/25 11:26 Dose: 300 mg Olanzapine (Olanzapine 10 Mg Tablet) 10 mg PO TID PRN PRN Reason: agitation Sumatriptan Succinate (Sumatriptan Succinate 100 Mg Tablet) 100 mg PO DAILY PRN PRN Reason: migraine Topiramate (Topiramate 100 Mg Tablet) 200 mg PO BEDTIME [facility] Last Admin: 02/18/25 21:36 Dose: 200 mg Trazodone HCl (Trazodone Hcl 50 Mg Tablet) 50 mg PO BEDTIME MRX1 PRN PRN Reason: Insomnia Last Admin: 02/18/25 21:37 Dose: 50 mg Allergies Allergies Allergy/AdvReac Type Severity Reaction Status Date / Time paliperidone [From Invega] Allergy Itching Verified 01/20/25 16:47 Assessment & Plan Assessment & Plan (1) Schizophrenia: Status: Acute Code(s): F20.9 - Schizophrenia, unspecified Plan Patient is a 24-year-old male with history of schizophrenia, off Invega Sustenna for about 3 months who presents with i.e. compensated psychotic symptoms and aggression. Patient is a poor historian. He initially says he does not know why his mother wanted him to come to the hospital. He quickly became angry at sign writer hand, starting to yell at sign writer hand, intense and starting to posture, including as sign writer hand walks away down the goodman I wanted different doctor... I do not trust you and that that sign writer hand is a shit doctor. Tool Inspector needed to terminate conversation and get away from patient for safety. Earlier he got angry at a nurse and also swore at her. Mother provided some collateral to staff. Apparently patient has been stable since his hospitalization when he was 16 years old, benefitting from Invega Sustenna; he attended [employer] and graduated. It is not clear if Invega Sustenna stopped working or he refused to take it but he has been decompensating over the past 3 months and has had to other recent hospitalizations. Mother says that he is scaring her and the neighbors;,paranoid and delusional frequently self dialoguing. Prior to coming to the hospital he tried to jump out of moving car. Formulation/clinical reasoning: Decompensated schizophrenia; either patient stopped taking Invega Sustenna or it stopped working. At the mentioned of the word Invega patient became extremely angry. However he was started on other medications (at other admission? ) which she is amenable to taking, including Abilify and Haldol so will continue these; sign writer hand will increase Haldol to 10 mg t.i.d., up from b.i.d.. -will give patient single room for safety of peers, since patient easily provoked Hospital course: 01/23 Patient seems to be more calm today. Guarded on approach and little to say to sign writer hand other than that he is doing all right and has no complaints or requests and says nothing is on his mind. Tool Inspector left it there so as not to accidentally provoke. Patient taking prescribed medication. To nursing staff patient said I was tormented yesterday... 01/24 Continue plan/regime. 01/25 Suggested to pt a trial of Abilifallyssa Domingueza per his OP MD Dr. Feng Villa. He will consider. 01/26 Refuses all LILLY suggestions. 01/27 Continue regime/plan 01/28 Some breakthrough sx. Increase Haldol to 10 mg qid 01/30/25 - CTP 02/01/25- Continue regime/plan 02/02/26 On 02/03 increase Haldol to 30 mg bid (an increase of 20 mg) 02/03/25- continue regime/plan 02/06- Continue tx 02/07: Observed pacing unit hallway. Guarded. Responding with one word answers. Patient reports feeling okay today; pt reports he doesn't need anything . He reports he has been pacing the unit hallway for exercise. denies SI/HI/VH/AH. medication compliant. continue current tx plan. 02/09: Continue tx 02/10: Continue tx. Await Maintena arrival. 02/11: Maintena given. Observe for SE 02/12 abdominal pain resolved with bowel movement; patient overall in behavioral control; continue current treatment plan 02/13 remains in good behavioral and impulse control; denies psychotic symptoms -asking for Munjaro (which he says he gets as outpt) 02/15: Decrease Haldol to 15 mg daily 02/16: Continue current regime/plan. Haldol was decreased to 15 mg twice daily yesterday. Planning long-term respit admit with DDS. 02/17: Continue tx. 02/18: Continue tx 02/19: continue current management and treatment plan. Plan: CV Q 15 minute checks started on abilify Maintenna Continue?Abilify PO abilify. Continue Clonidine 0.2 mg q.h.s. Continue Topamax 200 mg q.h.s. Haldol 10 mg t.i.d., up from b.i.d. Reason for continued inpatient stay Substantial Risk for: harm to others, inability to function and rapid decompensation Time Spent With Patient Time: Total time managing care of this patient today ____ minutes.
[2025-02-19] MEDS: Milk of Magnesia 30 ML ORAL.SUSP PO (10:25)
[2025-02-19] MEDS: bisacodyL 5 MG TABLET.DR 10 MG PO (18:37)
[2025-02-19 20:00] VITALS: BP 165/85; PULSE 75; TEMP 36.3; O2SAT 100
[2025-02-19 20:45] VITALS: BP 162/85
[2025-02-19] MEDS: traZODone HCL 50 MG TABLET PO (20:45)
[2025-02-19] MEDS: cloNIDine HCL 0.2 MG TABLET PO (20:45)
[2025-02-19] MEDS: Topiramate 100 MG TABLET 200 MG PO (20:46)
[2025-02-20 09:24] VITALS: BP 103/59; PULSE 57; RESP 16; TEMP 36.4; O2SAT 96
[2025-02-20] MEDS: HaloperidoL 5 MG TABLET 15 MG PO ×2 (09:41→21:56)
--- NOTE | 2025-02-20 10:50 | HO.PSYCHPN ---
Subjective Subjective Date of Service: 02/20/25 Reason For Visit: Pyschosis Interim History: Pt reports feeling well. He has been calm on the unit. He is visible. Engaged. He says he has DDS and they may be helping with his placement post hospitalization. Denies SI/HI/AVH. Review of Systems Review of Systems Denies Yes all other systems are reviewed and are negative Mental Status Exam Mental Status Exam Narrative: Mental Status Exam Narrative: Appearance: Casually dressed Behavior: Calm and cooperative throughout the interview. Eye contact is appropriate, and there are no signs of psychomotor agitation or retardation Speech: Normal volume and prosody Thought process logical and goal-directed Thought content: Future oriented no self-harming thoughts Mood: Euthymic Affect:Constricted, mood-congruent SI:denies HI:denies VH/AH:none Delusions: None Insight/judgment: Fair insight and judgment Memory/cog: Alert, oriented x 4. grossly intact to conversational testing Patient Appearance: Appropriate Patient Orientation: Person, Place, Time and Situation Level of Consciousness: Awake and Alert Patient Behavior: Appropriate, Talkative and Good Eye Contact Mood Description: Calm and Appropriate Affect Description: Calm and Appropriate Patient Cognition Impaired: No Ability to Follow Directions: Fair Speech Pattern: Clear Memory Description: Intact Diagnostics Vital Signs (24Hr): Vital Signs - 24 hr 02/19/25 20:00 02/19/25 20:45 02/20/25 09:24 Temperature 97.3 F 97.5 F Pulse Rate 75 57 Respiratory Rate 16 Blood Pressure 165/85 H 162/85 H 103/59 L Pulse Oximetry 100 96 Oxygen Delivery Method Room Air Room Air BMI result Body Mass Index 41.3 Labs 02/07/25 08:41 02/07/25 08:41 Medications Medications Current Medications Acetaminophen (Acetaminophen 325 Mg Tablet) 650 mg PO Q6H PRN PRN Reason: Headache/Pain, Scale 1-10 Last Admin: 02/14/25 09:06 Dose: 650 mg Al Hydroxide/Mg Hydroxide (Magnesium Hydrox/Alum Hydrox 30 Ml Oral.Susp) 30 ml PO Q6H PRN PRN Reason: Heartburn/Nausea Last Admin: 02/16/25 21:25 Dose: 30 ml Bisacodyl (Bisacodyl 5 Mg Tablet.Dr) 10 mg PO DAILY PRN PRN Reason: Constipation Last Admin: 02/19/25 18:37 Dose: 10 mg Clonidine HCl (Clonidine Hcl 0.2 Mg Tablet) 0.2 mg PO BEDTIME [facility]; Protocol Last Admin: 02/19/25 20:45 Dose: 0.2 mg Haloperidol (Haloperidol 5 Mg Tablet) 10 mg PO BID PRN PRN Reason: psychosis/agitation Haloperidol (Haloperidol 5 Mg Tablet) 15 mg PO BID [facility] Last Admin: 02/20/25 09:41 Dose: 15 mg Hydroxyzine HCl (Hydroxyzine Hcl 25 Mg Tablet) 25 mg PO Q6H PRN PRN Reason: mild anxiety Last Admin: 02/08/25 20:50 Dose: 25 mg Ibuprofen (Ibuprofen 800 Mg Tablet) 800 mg PO Q8H PRN PRN Reason: back pain Last Admin: 02/14/25 11:34 Dose: 800 mg Magnesium Citrate (Magnesium Citrate 300 Ml Solution) 300 ml PO ONCE PRN PRN Reason: severe constipation Last Admin: 02/11/25 20:49 Dose: 300 ml Magnesium Hydroxide (Milk Of Magnesia 30 Ml Oral.Susp) 30 ml PO DAILY PRN PRN Reason: Constipation Last Admin: 02/19/25 10:25 Dose: 30 ml Nicotine (Nicotine 21 Mg Patch.Td24) 21 mg TRANSDERMA DAILY PRN PRN Reason: smoking cessation Non-Formulary Medication (Abilify Maintena 300 Mg Er Inj) 300 mg IM Q30D [facility] Last Admin: 02/11/25 11:26 Dose: 300 mg Olanzapine (Olanzapine 10 Mg Tablet) 10 mg PO TID PRN PRN Reason: agitation Sumatriptan Succinate (Sumatriptan Succinate 100 Mg Tablet) 100 mg PO DAILY PRN PRN Reason: migraine Topiramate (Topiramate 100 Mg Tablet) 200 mg PO BEDTIME [facility] Last Admin: 02/19/25 20:46 Dose: 200 mg Trazodone HCl (Trazodone Hcl 50 Mg Tablet) 50 mg PO BEDTIME MRX1 PRN PRN Reason: Insomnia Last Admin: 02/19/25 20:45 Dose: 50 mg Allergies Allergies Allergy/AdvReac Type Severity Reaction Status Date / Time paliperidone [From Invega] Allergy Itching Verified 01/20/25 16:47 Assessment & Plan Assessment & Plan (1) Schizophrenia: Status: Acute Code(s): F20.9 - Schizophrenia, unspecified Plan Patient is a 24-year-old male with history of schizophrenia, off Invega Sustenna for about 3 months who presents with i.e. compensated psychotic symptoms and aggression. Patient is a poor historian. He initially says he does not know why his mother wanted him to come to the hospital. He quickly became angry at senior medical writer, starting to yell at senior medical writer, intense and starting to posture, including as senior medical writer walks away down the goodman I wanted different doctor... I do not trust you and that that senior medical writer is a shit doctor. Milling Machinist needed to terminate conversation and get away from patient for safety. Earlier he got angry at a nurse and also swore at her. Mother provided some collateral to staff. Apparently patient has been stable since his hospitalization when he was 16 years old, benefitting from Invega Sustenna; he attended [employer] and graduated. It is not clear if Invega Sustenna stopped working or he refused to take it but he has been decompensating over the past 3 months and has had to other recent hospitalizations. Mother says that he is scaring her and the neighbors;,paranoid and delusional frequently self dialoguing. Prior to coming to the hospital he tried to jump out of moving car. Formulation/clinical reasoning: Decompensated schizophrenia; either patient stopped taking Invega Sustenna or it stopped working. At the mentioned of the word Invega patient became extremely angry. However he was started on other medications (at other admission? ) which she is amenable to taking, including Abilify and Haldol so will continue these; senior medical writer will increase Haldol to 10 mg t.i.d., up from b.i.d.. -will give patient single room for safety of peers, since patient easily provoked Hospital course: 01/23 Patient seems to be more calm today. Guarded on approach and little to say to senior medical writer other than that he is doing all right and has no complaints or requests and says nothing is on his mind. Milling Machinist left it there so as not to accidentally provoke. Patient taking prescribed medication. To nursing staff patient said I was tormented yesterday... 01/24 Continue plan/regime. 01/25 Suggested to pt a trial of Allie Bingham per his OP MD Dr. Feng Villa. He will consider. 01/26 Refuses all LILLY suggestions. 01/27 Continue regime/plan 01/28 Some breakthrough sx. Increase Haldol to 10 mg qid 01/30/25 - CTP 02/01/25- Continue regime/plan 02/02/26 On 02/03 increase Haldol to 30 mg bid (an increase of 20 mg) 02/03/25- continue regime/plan 02/06- Continue tx 02/07: Observed pacing unit hallway. Guarded. Responding with one word answers. Patient reports feeling okay today; pt reports he doesn't need anything . He reports he has been pacing the unit hallway for exercise. denies SI/HI/VH/AH. medication compliant. continue current tx plan. 02/09: Continue tx 02/10: Continue tx. Await Maintena arrival. 02/11: Maintena given. Observe for SE 02/12 abdominal pain resolved with bowel movement; patient overall in behavioral control; continue current treatment plan 02/13 remains in good behavioral and impulse control; denies psychotic symptoms -asking for Munjaro (which he says he gets as outpt) 02/15: Decrease Haldol to 15 mg daily 02/16: Continue current regime/plan. Haldol was decreased to 15 mg twice daily yesterday. Planning long-term respit admit with DDS. 02/17: Continue tx. 02/18: Continue tx 02/19: continue current management and treatment plan. 02/20: continue current management and treatment plan. Plan: CV Q 15 minute checks started on abilify Maintenna Continue?Abilify PO abilify. Continue Clonidine 0.2 mg q.h.s. Continue Topamax 200 mg q.h.s. Haldol 10 mg t.i.d., up from b.i.d. Reason for continued inpatient stay Substantial Risk for: harm to others, inability to function and rapid decompensation Time Spent With Patient Time: Total time managing care of this patient today ____ minutes.
[2025-02-20] MEDS: Milk of Magnesia 30 ML ORAL.SUSP PO (11:15)
[2025-02-20 19:53] VITALS: BP 126/90; PULSE 99; RESP 15; TEMP 36.4; O2SAT 100
[2025-02-20] MEDS: Topiramate 100 MG TABLET 200 MG PO (21:55)
[2025-02-20] MEDS: cloNIDine HCL 0.2 MG TABLET PO (21:56)
[2025-02-20] MEDS: traZODone HCL 50 MG TABLET PO (21:56)
[2025-02-21] MEDS: HaloperidoL 5 MG TABLET 15 MG PO ×2 (08:50→21:31)
[2025-02-21 08:54] VITALS: BP 103/61; PULSE 61; RESP 16; TEMP 36.4; O2SAT 96
--- NOTE | 2025-02-21 09:30 | P.PNPSI_ITS ---
Subjective Subjective Date of Service: 02/21/25 Reason For Visit: Pyschosis Interim History: Seen in his room. Pt reports feeling well. He was in bed with the bible closed in front of him. He has been calm on the unit. He is visible. Engaged. He denies depression today. Hopeful for discharge and DDS helping with alternative living situation. Denies SI/HI/AVH. Review of Systems Review of Systems Denies Yes all other systems are reviewed and are negative Mental Status Exam Mental Status Exam Narrative: Mental Status Exam Narrative: Appearance: Casually dressed Behavior: Calm and cooperative throughout the interview. Eye contact is appropriate, and there are no signs of psychomotor agitation or retardation Speech: Normal volume and prosody Thought process logical and goal-directed Thought content: Future oriented no self-harming thoughts Mood: Euthymic Affect:Constricted, mood-congruent SI:denies HI:denies VH/AH:none Delusions: None Insight/judgment: Fair insight and judgment Memory/cog: Alert, oriented x 4. grossly intact to conversational testing Patient Appearance: Appropriate Patient Orientation: Person, Place, Time and Situation Level of Consciousness: Awake and Alert Patient Behavior: Appropriate, Talkative and Good Eye Contact Mood Description: Calm and Appropriate Affect Description: Calm and Appropriate Patient Cognition Impaired: No Ability to Follow Directions: Fair Speech Pattern: Clear Memory Description: Intact Diagnostics Vital Signs (24Hr): Vital Signs - 24 hr 02/20/25 19:53 02/21/25 08:54 Temperature 97.5 F 97.6 F Pulse Rate 99 61 Respiratory Rate 15 16 Blood Pressure 126/90 H 103/61 Pulse Oximetry 100 96 Oxygen Delivery Method Room Air BMI result Body Mass Index 41.3 Labs 02/07/25 08:41 02/07/25 08:41 Medications Medications Current Medications Acetaminophen (Acetaminophen 325 Mg Tablet) 650 mg PO Q6H PRN PRN Reason: Headache/Pain, Scale 1-10 Last Admin: 02/14/25 09:06 Dose: 650 mg Al Hydroxide/Mg Hydroxide (Magnesium Hydrox/Alum Hydrox 30 Ml Oral.Susp) 30 ml PO Q6H PRN PRN Reason: Heartburn/Nausea Last Admin: 02/16/25 21:25 Dose: 30 ml Bisacodyl (Bisacodyl 5 Mg Tablet.Dr) 10 mg PO DAILY PRN PRN Reason: Constipation Last Admin: 02/19/25 18:37 Dose: 10 mg Clonidine HCl (Clonidine Hcl 0.2 Mg Tablet) 0.2 mg PO BEDTIME EMILY; Protocol Last Admin: 02/20/25 21:56 Dose: 0.2 mg Haloperidol (Haloperidol 5 Mg Tablet) 10 mg PO BID PRN PRN Reason: psychosis/agitation Haloperidol (Haloperidol 5 Mg Tablet) 15 mg PO BID [facility] Last Admin: 02/21/25 08:50 Dose: 15 mg Hydroxyzine HCl (Hydroxyzine Hcl 25 Mg Tablet) 25 mg PO Q6H PRN PRN Reason: mild anxiety Last Admin: 02/08/25 20:50 Dose: 25 mg Ibuprofen (Ibuprofen 800 Mg Tablet) 800 mg PO Q8H PRN PRN Reason: back pain Last Admin: 02/14/25 11:34 Dose: 800 mg Magnesium Citrate (Magnesium Citrate 300 Ml Solution) 300 ml PO ONCE PRN PRN Reason: severe constipation Last Admin: 02/11/25 20:49 Dose: 300 ml Magnesium Hydroxide (Milk Of Magnesia 30 Ml Oral.Susp) 30 ml PO DAILY PRN PRN Reason: Constipation Last Admin: 02/20/25 11:15 Dose: 30 ml Nicotine (Nicotine 21 Mg Patch.Td24) 21 mg TRANSDERMA DAILY PRN PRN Reason: smoking cessation Non-Formulary Medication (Abilify Maintena 300 Mg Er Inj) 300 mg IM Q30D [facility] Last Admin: 02/11/25 11:26 Dose: 300 mg Olanzapine (Olanzapine 10 Mg Tablet) 10 mg PO TID PRN PRN Reason: agitation Sumatriptan Succinate (Sumatriptan Succinate 100 Mg Tablet) 100 mg PO DAILY PRN PRN Reason: migraine Topiramate (Topiramate 100 Mg Tablet) 200 mg PO BEDTIME [facility] Last Admin: 02/20/25 21:55 Dose: 200 mg Trazodone HCl (Trazodone Hcl 50 Mg Tablet) 50 mg PO BEDTIME MRX1 PRN PRN Reason: Insomnia Last Admin: 02/20/25 21:56 Dose: 50 mg Allergies Allergies Allergy/AdvReac Type Severity Reaction Status Date / Time paliperidone [From Invega] Allergy Itching Verified 01/20/25 16:47 Assessment & Plan Assessment & Plan (1) Schizophrenia: Status: Acute Code(s): F20.9 - Schizophrenia, unspecified Plan Patient is a 24-year-old male with history of schizophrenia, off Invega Sustenna for about 3 months who presents with i.e. compensated psychotic symptoms and aggression. Patient is a poor historian. He initially says he does not know why his mother wanted him to come to the hospital. He quickly became angry at telegraphic typewriter operator chief, starting to yell at telegraphic typewriter operator chief, intense and starting to posture, including as telegraphic typewriter operator chief walks away down the goodman I wanted different doctor... I do not trust you and that that telegraphic typewriter operator chief is a shit doctor. Video Production Assistant needed to terminate conversation and get away from patient for safety. Earlier he got angry at a nurse and also swore at her. Mother provided some collateral to staff. Apparently patient has been stable since his hospitalization when he was 16 years old, benefitting from Invega Sustenna; he attended [employer] and graduated. It is not clear if Invega Sustenna stopped working or he refused to take it but he has been decompensating over the past 3 months and has had to other recent hospitalizations. Mother says that he is scaring her and the neighbors;,paranoid and delusional frequently self dialoguing. Prior to coming to the hospital he tried to jump out of moving car. Formulation/clinical reasoning: Decompensated schizophrenia; either patient stopped taking Invega Sustenna or it stopped working. At the mentioned of the word Invega patient became extremely angry. However he was started on other medications (at other admission? ) which she is amenable to taking, including Abilify and Haldol so will continue these; telegraphic typewriter operator chief will increase Haldol to 10 mg t.i.d., up from b.i.d.. -will give patient single room for safety of peers, since patient easily provoked Hospital course: 01/23 Patient seems to be more calm today. Guarded on approach and little to say to telegraphic typewriter operator chief other than that he is doing all right and has no complaints or requests and says nothing is on his mind. Video Production Assistant left it there so as not to accidentally provoke. Patient taking prescribed medication. To nursing staff patient said I was tormented yesterday... 01/24 Continue plan/regime. 01/25 Suggested to pt a trial of Allie Bingham per his OP MD Dr. Feng Villa. He will consider. 01/26 Refuses all LILLY suggestions. 01/27 Continue regime/plan 01/28 Some breakthrough sx. Increase Haldol to 10 mg qid 01/30/25 - CTP 02/01/25- Continue regime/plan 02/02/26 On 02/03 increase Haldol to 30 mg bid (an increase of 20 mg) 02/03/25- continue regime/plan 02/06- Continue tx 02/07: Observed pacing unit hallway. Guarded. Responding with one word answers. Patient reports feeling okay today; pt reports he doesn't need anything . He reports he has been pacing the unit hallway for exercise. denies SI/HI/VH/AH. medication compliant. continue current tx plan. 02/09: Continue tx 02/10: Continue tx. Await Maintena arrival. 02/11: Maintena given. Observe for SE 02/12 abdominal pain resolved with bowel movement; patient overall in behavioral control; continue current treatment plan 02/13 remains in good behavioral and impulse control; denies psychotic symptoms -asking for Munjaro (which he says he gets as outpt) 02/15: Decrease Haldol to 15 mg daily 02/16: Continue current regime/plan. Haldol was decreased to 15 mg twice daily yesterday. Planning long-term respit admit with DDS. 02/17: Continue tx. 02/18: Continue tx 02/19: continue current management and treatment plan. 02/20: continue current management and treatment plan. 02/21: continue current management and treatment plan. Plan: CV Q 15 minute checks started on abilify Maintenna Continue?Abilify PO abilify. Continue Clonidine 0.2 mg q.h.s. Continue Topamax 200 mg q.h.s. Haldol 10 mg t.i.d., up from b.i.d. Reason for continued inpatient stay Substantial Risk for: harm to others and rapid decompensation Time Spent With Patient Time: Total time managing care of this patient today ____ minutes.
[2025-02-21] MEDS: Milk of Magnesia 30 ML ORAL.SUSP PO (18:28)
[2025-02-21] MEDS: bisacodyL 5 MG TABLET.DR 10 MG PO (18:28)
[2025-02-21 20:00] VITALS: BP 121/62; PULSE 83; RESP 16; TEMP 36.4; O2SAT 99
[2025-02-21 21:29] VITALS: BP 134/85
[2025-02-21] MEDS: cloNIDine HCL 0.2 MG TABLET PO (21:29)
[2025-02-21] MEDS: Topiramate 100 MG TABLET 200 MG PO (21:30)
[2025-02-21] MEDS: traZODone HCL 50 MG TABLET PO (21:30)
[2025-02-22 07:30] VITALS: BP 99/65; PULSE 48; TEMP 36.4; O2SAT 99
[2025-02-22 07:56] VITALS: BP 117/69; PULSE 68
[2025-02-22] MEDS: HaloperidoL 5 MG TABLET 15 MG PO ×2 (08:18→20:11)
--- NOTE | 2025-02-22 09:53 | P.PNPSI_ITS ---
Subjective Subjective Date of Service: 02/22/25 Reason For Visit: Pyschosis Interim History: With patient; discussed with team; reviewed chart Patient reports he is in a good mood; denies all psychotic symptoms. Feels that he is pretty much at his regular self and is looking forward to discharge. Discussed options and patient is very hopeful to go to a respite situation. Patient proactive and helping make calls for dispo plans. Patient remains in good behavioral and impulse control on the unit, appropriate with peers and staff. Patient is sleeping and eating well Mental Status Exam Mental Status Exam Narrative: Pt is alert and oriented; behavior is cooperative, friendly and calm; patient is not in distress; dressed in casual attire with unkempt hair but adequate hygiene; mood is described as good and affect congruent; eye contact appropriate; Speech is normal rate, volume and prosody and not pressured; no psychomotor agitation/retardation present; thought process is organized and goal directed; Thought content is on tx; otherwise pertinent to relevant topics and without any delusional content, paranoid ideations or grandiosity; denies any SI/HI. Denies AVH and there is no evidence of perceptual disturbance. Patients insight and judgment appear intact. Diagnostics Vital Signs (24Hr): Vital Signs - 24 hr 02/21/25 20:00 02/21/25 21:29 02/22/25 07:30 Temperature 97.6 F 97.6 F Pulse Rate 83 48 L Respiratory Rate 16 Blood Pressure 121/62 134/85 99/65 Pulse Oximetry 99 99 Oxygen Delivery Method Room Air Room Air 02/22/25 07:56 Temperature Pulse Rate 68 Respiratory Rate Blood Pressure 117/69 Pulse Oximetry Oxygen Delivery Method BMI result Body Mass Index 41.3 Labs 02/07/25 08:41 02/07/25 08:41 Medications Medications Current Medications Acetaminophen (Acetaminophen 325 Mg Tablet) 650 mg PO Q6H PRN PRN Reason: Headache/Pain, Scale 1-10 Last Admin: 02/14/25 09:06 Dose: 650 mg Al Hydroxide/Mg Hydroxide (Magnesium Hydrox/Alum Hydrox 30 Ml Oral.Susp) 30 ml PO Q6H PRN PRN Reason: Heartburn/Nausea Last Admin: 02/16/25 21:25 Dose: 30 ml Bisacodyl (Bisacodyl 5 Mg Tablet.Dr) 10 mg PO DAILY PRN PRN Reason: Constipation Last Admin: 02/21/25 18:28 Dose: 10 mg Clonidine HCl (Clonidine Hcl 0.2 Mg Tablet) 0.2 mg PO BEDTIME [facility]; Protocol Last Admin: 02/21/25 21:29 Dose: 0.2 mg Haloperidol (Haloperidol 5 Mg Tablet) 10 mg PO BID PRN PRN Reason: psychosis/agitation Haloperidol (Haloperidol 5 Mg Tablet) 15 mg PO BID [facility] Last Admin: 02/22/25 08:18 Dose: 15 mg Hydroxyzine HCl (Hydroxyzine Hcl 25 Mg Tablet) 25 mg PO Q6H PRN PRN Reason: mild anxiety Last Admin: 02/08/25 20:50 Dose: 25 mg Ibuprofen (Ibuprofen 800 Mg Tablet) 800 mg PO Q8H PRN PRN Reason: back pain Last Admin: 02/14/25 11:34 Dose: 800 mg Magnesium Citrate (Magnesium Citrate 300 Ml Solution) 300 ml PO ONCE PRN PRN Reason: severe constipation Last Admin: 02/11/25 20:49 Dose: 300 ml Magnesium Hydroxide (Milk Of Magnesia 30 Ml Oral.Susp) 30 ml PO DAILY PRN PRN Reason: Constipation Last Admin: 02/21/25 18:28 Dose: 30 ml Nicotine (Nicotine 21 Mg Patch.Td24) 21 mg TRANSDERMA DAILY PRN PRN Reason: smoking cessation Non-Formulary Medication (Abilify Maintena 300 Mg Er Inj) 300 mg IM Q30D [facility] Last Admin: 02/11/25 11:26 Dose: 300 mg Olanzapine (Olanzapine 10 Mg Tablet) 10 mg PO TID PRN PRN Reason: agitation Sumatriptan Succinate (Sumatriptan Succinate 100 Mg Tablet) 100 mg PO DAILY PRN PRN Reason: migraine Topiramate (Topiramate 100 Mg Tablet) 200 mg PO BEDTIME [facility] Last Admin: 02/21/25 21:30 Dose: 200 mg Trazodone HCl (Trazodone Hcl 50 Mg Tablet) 50 mg PO BEDTIME MRX1 PRN PRN Reason: Insomnia Last Admin: 02/21/25 21:30 Dose: 50 mg Allergies Allergies Allergy/AdvReac Type Severity Reaction Status Date / Time paliperidone [From Invega] Allergy Itching Verified 01/20/25 16:47 Assessment & Plan Assessment & Plan (1) Schizophrenia: Status: Acute Code(s): F20.9 - Schizophrenia, unspecified Plan Patient is a 24-year-old male with history of schizophrenia, off Invega Sustenna for about 3 months who presents with i.e. compensated psychotic symptoms and aggression. Patient is a poor historian. He initially says he does not know why his mother wanted him to come to the hospital. He quickly became angry at specifications writer, starting to yell at specifications writer, intense and starting to posture, including as specifications writer walks away down the goodman I wanted different doctor... I do not trust you and that that specifications writer is a shit doctor. Underwriting Account Representative needed to terminate conversation and get away from patient for safety. Earlier he got angry at a nurse and also swore at her. Mother provided some collateral to staff. Apparently patient has been stable since his hospitalization when he was 16 years old, benefitting from Invega Sustenna; he attended [employer] and graduated. It is not clear if Invega Sustenna stopped working or he refused to take it but he has been decompensating over the past 3 months and has had to other recent hospitalizations. Mother says that he is scaring her and the neighbors;,paranoid and delusional frequently self dialoguing. Prior to coming to the hospital he tried to jump out of moving car. Formulation/clinical reasoning: Decompensated schizophrenia; either patient stopped taking Invega Sustenna or it stopped working. At the mentioned of the word Invega patient became extremely angry. However he was started on other medications (at other admission? ) which she is amenable to taking, including Abilify and Haldol so will continue these; specifications writer will increase Haldol to 10 mg t.i.d., up from b.i.d.. -will give patient single room for safety of peers, since patient easily provoked Hospital course: 01/23 Patient seems to be more calm today. Guarded on approach and little to say to specifications writer other than that he is doing all right and has no complaints or requests and says nothing is on his mind. Underwriting Account Representative left it there so as not to accidentally provoke. Patient taking prescribed medication. To nursing staff patient said I was tormented yesterday... 01/24 Continue plan/regime. 01/25 Suggested to pt a trial of Allie Bingham per his OP MD Dr. Feng Villa. He will consider. 01/26 Refuses all LILLY suggestions. 01/27 Continue regime/plan 01/28 Some breakthrough sx. Increase Haldol to 10 mg qid 01/30/25 - CTP 02/01/25- Continue regime/plan 02/02/26 On 02/03 increase Haldol to 30 mg bid (an increase of 20 mg) 02/03/25- continue regime/plan 02/06- Continue tx 02/07: Observed pacing unit hallway. Guarded. Responding with one word answers. Patient reports feeling okay today; pt reports he doesn't need anything . He reports he has been pacing the unit hallway for exercise. denies SI/HI/VH/AH. medication compliant. continue current tx plan. 02/09: Continue tx 02/10: Continue tx. Await Maintena arrival. 02/11: Maintena given. Observe for SE 02/12 abdominal pain resolved with bowel movement; patient overall in behavioral control; continue current treatment plan 02/13 remains in good behavioral and impulse control; denies psychotic symptoms -asking for Munjaro (which he says he gets as outpt) 02/15: Decrease Haldol to 15 mg daily 02/16: Continue current regime/plan. Haldol was decreased to 15 mg twice daily yesterday. Planning long-term respit admit with DDS. 02/22 Patient reports he is in a good mood; denies all psychotic symptoms. Feels that he is pretty much at his regular self and is looking forward to discharge. Discussed options and patient is very hopeful to go to a respite situation. Patient proactive and helping make calls for dispo plans. Patient remains in good behavioral and impulse control on the unit, appropriate with peers and staff. Patient is sleeping and eating well Patient is at baseline. He is not in imminent risk for harm to self or other and appropriate to return to the community for treatment. Plan: CV Q 15 minute checks started on abilify Maintenna Continue Clonidine 0.2 mg q.h.s. Continue Topamax 200 mg q.h.s. Haldol 15 mg b.i.d. Patient educated on: diagnosis Informed Consent: does not understand Reason for continued inpatient stay Substantial Risk for: stable for discharge Time Spent With Patient Time: Total time managing care of this patient today ____ minutes.
[2025-02-22 20:00] VITALS: BP 124/60; PULSE 62; RESP 16; TEMP 36.2; O2SAT 100
[2025-02-22 20:11] VITALS: BP 124/60
[2025-02-22] MEDS: cloNIDine HCL 0.2 MG TABLET PO (20:11)
[2025-02-22] MEDS: Topiramate 100 MG TABLET 200 MG PO (20:12)
[2025-02-22] MEDS: Milk of Magnesia 30 ML ORAL.SUSP PO (20:15)
[2025-02-23 08:00] VITALS: BP 110/55; PULSE 55; TEMP 36.7; O2SAT 97
[2025-02-23] MEDS: HaloperidoL 5 MG TABLET 15 MG PO (08:40)
--- NOTE | 2025-02-23 13:19 | P.DS_ITS ---
DS: Providers Provider Date of Service: 02/23/25 Date of admission: 01/21/25 17:56 Date of discharge: 02/23/25 Primary care physician: Nhan Jasso MD Admitting clinician: Myrtle Payton Attending physician on discharge: Dion Meléndez DS: Diagnosis Discharge Diagnosis (1) Schizophrenia: Status: Acute DS: Medications Discharge Medications Home Medications: Previous Rx's ?Medication ?Instructions ?Recorded aripiprazole 300 mg intramuscular 300 mg IM QMONTH #1 ea 02/08/25 suspension,extended release (Abilify Maintena) tirzepatide (weight loss) 2.5 2.5 mg (0.5 mL) subcut QWEEK #2 mL 02/15/25 mg/0.5 mL subcutaneous pen injector (Zepbound) acetaminophen 500 mg tablet 500 mg PO TID PRN headache/body 02/23/25 pain 30 days #120 tabs aripiprazole 400 mg intramuscular 400 mg IM Q28D 28 days #1 ea 02/23/25 suspension,extended release (Abilify Maintena) bisacodyl 5 mg tablet,delayed 10 mg (2 x 5 mg) PO DAILY PRN 02/23/25 release Constipation 30 days #60 tabs clonidine HCl 0.2 mg tablet 0.2 mg PO BEDTIME 30 days #30 tabs 02/23/25 haloperidol 10 mg tablet 10 mg PO BID 30 days #60 tabs 02/23/25 haloperidol 5 mg tablet 5 mg PO BID 30 days #60 tabs 02/23/25 magnesium hydroxide 400 mg/5 mL 30 ml PO DAILY Constipation 30 02/23/25 oral suspension (Milk of Magnesia) days #355 mL sumatriptan succinate 100 mg tablet 100 mg PO DAILY PRN migraine 30 02/23/25 days #10 tabs topiramate 200 mg tablet 200 mg PO BEDTIME 30 days #30 tabs 02/23/25 trazodone 50 mg tablet 50 mg PO BEDTIME PRN insomnia 30 02/23/25 days #30 tabs DS: Summary Hospital Course Hospital Course: Patient is a 24-year-old male with history of schizophrenia, off Invega Sustenna for about 3 months who presents with i.e. compensated psychotic symptoms and aggression. Patient is a poor historian. He initially says he does not know why his mother wanted him to come to the hospital. He quickly became angry at group underwriter, starting to yell at group underwriter, intense and starting to posture, including as group underwriter walks away down the goodman I wanted different doctor... I do not trust you and that that group underwriter is a shit doctor. [employer] needed to terminate conversation and get away from patient for safety. Earlier he got angry at a nurse and also swore at her. Mother provided some collateral to staff. Apparently patient has been stable since his hospitalization when he was 16 years old, benefitting from Invega Sustenna; he attended [employer] and graduated. It is not clear if Invega Sustenna stopped working or he refused to take it but he has been decompensating over the past 3 months and has had to other recent hospitalizations. Mother says that he is scaring her and the neighbors;,paranoid and delusional frequently self dialoguing. Prior to coming to the hospital he tried to jump out of moving car. Formulation/clinical reasoning: Decompensated schizophrenia; either patient stopped taking Invega Sustenna or it stopped working. At the mentioned of the word Invega patient became extremely angry. However he was started on other medications (at other admission? ) which she is amenable to taking, including Abilify and Haldol so will continue these; group underwriter will increase Haldol to 10 mg t.i.d., up from b.i.d.. -will give patient single room for safety of peers, since patient easily provoked Hospital course: 01/23 Patient seems to be more calm today. Guarded on approach and little to say to group underwriter other than that he is doing all right and has no complaints or requests and says nothing is on his mind. [employer] left it there so as not to accidentally provoke. Patient taking prescribed medication. To nursing staff patient said I was tormented yesterday... 01/24 Continue plan/regime. 01/25 Suggested to pt a trial of Allie Bingham per his OP MD Dr. Feng Villa. He will consider. 01/26 Refuses all LILLY suggestions. 01/27 Continue regime/plan 01/28 Some breakthrough sx. Increase Haldol to 10 mg qid 01/30/25 - CTP 02/01/25- Continue regime/plan 02/02/26 On 5/8 increase Haldol to 30 mg bid (an increase of 20 mg) 02/03/25- continue regime/plan 02/06- Continue tx 02/07: Observed pacing unit hallway. Guarded. Responding with one word answers. Patient reports feeling okay today; pt reports he doesn't need anything . He reports he has been pacing the unit hallway for exercise. denies SI/HI/VH/AH. medication compliant. continue current tx plan. 02/09: Continue tx 02/10: Continue tx. Await Maintena arrival. 02/11: Maintena given. Observe for SE 02/12 abdominal pain resolved with bowel movement; patient overall in behavioral control; continue current treatment plan 02/13 remains in good behavioral and impulse control; denies psychotic symptoms -asking for [place] (which he says he gets as outpt) 02/15: Decrease Haldol to 15 mg daily 02/16: Continue current regime/plan. Haldol was decreased to 15 mg twice daily yesterday. Planning long-term respit admit with DDS. 02/22 Patient reports he is in a good mood; denies all psychotic symptoms. Feels that he is pretty much at his regular self and is looking forward to discharge. Discussed options and patient is very hopeful to go to a respite situation. Patient proactive and helping make calls for dispo plans. Patient remains in good behavioral and impulse control on the unit, appropriate with peers and staff. Patient is sleeping and eating well Patient is at baseline. He is not in imminent risk for harm to self or other and appropriate to return to the community for treatment. Plan: CV Q 15 minute checks started on abilifallyssa Maintenna Continue Clonidine 0.2 mg q.h.s. Continue Topamax 200 mg q.h.s. Haldol 15 mg b.i.d. Patient educated on: diagnosis Informed Consent: does not understand Time Spent with Patient Time attestation: Total time managing care of this patient today ____ minutes. Discharge Plan Discharge Anticipated Discharge Date/Time: 02/23/25 15:30 Patient Disposition: Xfer Other Discharge Diagnosis: schizophrenia Referrals: DDS Worker-Melissa [Other] - 1 Week [facility] Contact- Guido Ohara [Other] - 1 Week [facility] Psychiatry with Dr. Villa [Other] - 03/03/25 2:00 pm (Social work placed a referral for therapy. Please discuss this with Dr. Villa at your appointment with him.) [facility] Partial Hospitalization Program [Other] - 02/28/25 8:00 am ([facility] is located in the back parking lot area and is in the red brick building behind the human resource [employer]. ) [facility] [Other] - 02/23/25 3:00 pm [facility] Visiting RN [Other] - 1 Week (Visiting RN for injectable medication. Call 3 day prior to when the medication is due to coordinate care with the [facility]. ) Nhan Jasso MD [Primary Care Provider] - 1 Week Discharge Medications: New Abilify Maintena 300 mg suspension,extended rel recon 300 mg IM QMONTH Qty: 1 0RF Zepbound 2.5 mg/0.5 mL pen injector 2.5 mg subcut QWEEK Qty: 2 0RF Rx Instructions: for 4 weeks rotate injection sites acetaminophen 500 mg tablet 500 mg PO TID PRN (Reason: headache/body pain) 30 Days Qty: 120 0RF Rx Instructions: Blister pack haloperidol 5 mg Tablet 5 mg PO BID 30 Days Qty: 60 0RF Rx Instructions: take with 10mg tab (blister pack) bisacodyl 5 mg Tablet,Delayed Release (Dr/Ec) 10 mg PO DAILY PRN (Reason: Constipation) 30 Days Qty: 60 0RF Rx Instructions: Blister pack magnesium hydroxide [Milk of Magnesia] 400 mg/5 mL Suspension 30 ml PO DAILY 30 Days Qty: 355 0RF Rx Instructions: hold for loose stool Abilify Maintena 400 mg suspension,extended rel recon 400 mg IM Q28D 28 Days Qty: 1 0RF Rx Instructions: due 03/11/25 Continued trazodone 50 mg tablet 50 mg PO BEDTIME PRN (Reason: insomnia) 30 Days Qty: 30 0RF Rx Instructions: Blister pack sumatriptan succinate 100 mg tablet 100 mg PO DAILY PRN (Reason: migraine) 30 Days Qty: 10 0RF Rx Instructions: Blister pack clonidine HCl 0.2 mg tablet 0.2 mg PO BEDTIME 30 Days Qty: 30 0RF Rx Instructions: Blister pack topiramate 200 mg tablet 200 mg PO BEDTIME 30 Days Qty: 30 0RF Rx Instructions: Blister pack Changed haloperidol 10 mg tablet 10 mg PO BID 30 Days Qty: 60 0RF Rx Instructions: Blister pack Discontinued aripiprazole 30 mg tablet 30 mg PO BEDTIME Discharge Orders: Discharge Order (Routine); Ordered 02/23/25 Ordered By: Dion Meléndez Diet: Regular diet Activity on Discharge: As tolerated Stand Alone Forms: Patient Portal Discharge page Print Language: Belarusian Care Plan Goals: Maintain mood and safe behaviors Take medications as prescribed Practice coping skills Continue with outpatient providers and reach out to them as needed Health Concerns: Mood stability and behaviors Plan of Treatment: Follow up with your PCP, psychiatric provider and other outpatient providers regarding above concerns Take medications as prescribed Assessment: Risk assessment at time of discharge:? Patient was interviewed prior to discharge and found to be fully oriented and without any SI or HI. Patient has improved insight and judgment and wants to continue treatment. Patient is not in imminent risk of harm to self or others and has a safety plan that includes presenting to the closest ER or calling 911 if feeling unsafe.? Patient has been observed closely by nursing and unit staff throughout admission; patient has not engaged in any behaviors that suggest dangerousness to self or others and has demonstrated appropriate behaviors and impulse control
== END 2025-02-23 15:40 | disposition other institution (70) | DRG 750 ==
LOC: HO.ED 20:12 → HO.PM5 01-21 18:37
PROVIDERS: Physician Assistant Medical; Admitting Provider Psychiatry & Neurology Psychiatry; Emergency Provider Emergency Medicine Emergency Medical Services; PCP Family Medicine; Visit Provider Clinical Nurse Specialist Psychiatric/Mental Health, Adult
DX: F20.9 Schizophrenia, unspecified (principal); Z79.899 Other long term (current) drug therapy
CPT/HCPCS: 36415; 74018; 80053; 80061; 80143; 80179; 80307; 81003; 83036; 83690; 83735; 85025; 93005; 99285

== ENCOUNTER → 2025-01-21 08:19 | Outpatient (BNV) | payer OTHER, SELFPAY | PROVIDERS: Admitting Provider Psychiatry & Neurology Psychiatry; Emergency Provider Emergency Medicine Emergency Medical Services; PCP Family Medicine; Visit Provider Internal Medicine | DX: R00.1 Bradycardia, unspecified (principal) | CPT/HCPCS: 93010 ==

== ENCOUNTER 2025-01-21 17:56 | Outpatient (BNV) | payer OTHER, SELFPAY | END 2025-02-11 12:03 | PROVIDERS: Admitting Provider Psychiatry & Neurology Psychiatry; Emergency Provider Emergency Medicine Emergency Medical Services; PCP Family Medicine; Visit Provider Internal Medicine Cardiovascular Disease | DX: R00.1 Bradycardia, unspecified (principal) | CPT/HCPCS: 93010 ==

== ENCOUNTER 2025-01-21 17:56 | Outpatient (BNV) | payer OTHER, SELFPAY | END 2025-02-11 18:10 | PROVIDERS: Admitting Provider Psychiatry & Neurology Psychiatry; Emergency Provider Emergency Medicine Emergency Medical Services; PCP Family Medicine; Visit Provider Specialist | DX: R14.0 Abdominal distension (gaseous) (principal) | CPT/HCPCS: 74018 ==

== ENCOUNTER → 2025-01-21 17:56 | Outpatient (BNV) | payer OTHER, SELFPAY | PROVIDERS: Admitting Provider Psychiatry & Neurology Psychiatry; Emergency Provider Emergency Medicine Emergency Medical Services; PCP Family Medicine; Visit Provider Psychiatry & Neurology Psychiatry | DX: F20.9 Schizophrenia, unspecified (principal) | CPT/HCPCS: 99231; 99232 ==

== ENCOUNTER → 2025-03-09 09:30 | Outpatient (BNV) | payer OTHER, SELFPAY | PROVIDERS: Visit Provider Psychiatry & Neurology Psychiatry | DX: F20.0 Paranoid schizophrenia (principal) | CPT/HCPCS: 99499 ==

== ENCOUNTER 2025-03-17 10:45 | Outpatient (RCR) | payer OTHER, SELFPAY ==
[2025-03-04 11:11] VITALS: BP 120/60; PULSE 80; TEMP 36.6
[2025-03-04 11:15] VITALS: BMI 40.7
--- NOTE | 2025-03-04 14:35 | PC.ADMIT ---
Patient is a 24 year old single male who was referred to [facility] by [facility] inpatient unit where he was admitted from 01/21-02/23/25. According to records patient was admitted secondary to psychotic sxs and aggression. Patient was living with his mother and his mother became concerned that he was decompensating. Patient reportedly jumped out of a moving car and responding to internal stimuli. Patient also reportedly was displaying aggressive behaviors and his mother was afraid of him as a result. Patient is currently living in a correction for more support. I asked patient what brought him to the inpatient unit patient stated, My mom sent me for some stupid reason. I wasn't doing anything, it was just a normal day. I came home from the park it was a typical day and I guess I just had a typical day and she called crisis on me because I was talking about something that kind of got her scared. I was talking about the area I lived in because I live on [address] in [place] my mom is there right now. I just said it wasn't a good neighborhood and we need to find a place and need to get out of here because it is trash. Patient studdering at times. Patient stated, The meds I'm on make me studder . Patient was smiling at me most of the admission. Some latency in speech noted at times, appears to be internally preoccupied. He was calm and cooperative. He was alert and oriented x4. Little insight regarding what brought him to the hospital. Patient reportedly was hospitalized three times this year and has a history of 8 inpatient LOC. Patient reports he wants to go on PO Abilify instead of taking Abilify Maintena. He plans on discussing this with the psychiatrist. Patient medications updated with medication list provided by his correction residence staff [facility]. jail staff administer his medications. Patient reports he is taking his medications as prescribed. Patient denied using any type of substances including alcohol or marijuana.
--- NOTE | 2025-03-07 22:58 | P.HPPSP_ITS ---
HPI Date of Service: 03/07/25 Chief Complaint: schizophrenia Sources of Information: patient interviewed, chart reviewed and crisis/core team assessment reviewed HPI Narrative: Patient is a 24-year-old male with history of schizophrenia, recent IPLOC to [facility] for 4-week admission due to decompensation of chronic mental illness. He had been brought in by his mother says that he is scaring her and the neighbors;,paranoid and delusional frequently self dialoguing. There is a history suggestive of med noncompliance. He is currently on a combination of Haldol and IM Abilify Maintena. He presents as alert, clear and coherent. He states that his medications are making him tired, and adds that he would also like to come off of IM medications. He appears to have poor insight into illness but was otherwise pleasant and appropriate. Past Psychiatric History: First hospitalized around 16 years old and benefited from Invega Mingleplayenna for the next 7 years, not requiring any hospitalizations Recently 2 psychiatric hospitalizations Many previous medication trials over the years, numerous antipsychotics CURRENT MEDICATIONS: Abilify Maintena 300 mg qmonthly clonidine 0.2 mg qhs Haldol 15 mg BID prn agitation (as 10 mg tab + 5 mg tab) Haldol 10 mg BID prn agitation sumatriptan succinate 100 mg qd prn migraine topiramate 200 mg qhs trazodone 50 mg qhs prn sleep Zepbound 2.5 mg subcut q weekly [facility] Medical History (Updated 03/04/25 @ 11:10 by Nazanin Muro RN) Constipation Borderline diabetic Schizophrenia Surgical History (Updated 03/04/25 @ 11:10 by Nazanin Muro RN) H/O hand surgery Family History: Deferred Social History: Lives at home with his family, mother [place], graduated from [employer]; functional and integrated in the community Substance History: denies Trauma History: Deferred Diagnostics Vital Signs (24Hr): BMI result Body Mass Index 40.7 Meds/Allergies Allergies Allergies Allergy/AdvReac Type Severity Reaction Status Date / Time paliperidone [From Invega] Allergy Itching Verified 01/20/25 16:47 Mental Status Exam Mental Status Exam Narrative: Alert oriented NAC. Calm, semicooperative, minimizes illness and need for medication. Speech normal aside from notable stutter. Mood euthymic. Affect constricted with moments of frustration regarding IM Abilify. No evidence of thought disorder. No mention of hallucinations, delusions or other psychotic content. Some perseveration with focus on medication. Otherwise future-oriented. Insight limited, judgment fair but adequate. Assessment & Plan Assessment & Plan (1) Schizophrenia: Status: Acute Code(s): F20.9 - Schizophrenia, unspecified Plan Admit to [facility] VS reviewed: afebrile, BP 120/60; 80 bpm lower Haldol to 10 mg QAM continue Haldol 15 mg QHS continue Haldol 10 mg BID PRN agitation continue Abilify Maintena 300 mg [id number] (pt is already on this medication, unclear why PA not done?) [facility] staff has reached out to Dr. Villa's office and left a message to set up an appointment to speak continue regular medications for now Routine lab work as indicated EKG, routine for baseline QTc for medication considerations as indicated UDS as indicated [facility] reviewed Continue to monitor as per protocol Patient educated on: diagnosis and medication risk/benefits Informed Consent: understands Reason for continued partial hosp. stay Substantial Risk for: med/psych decompensation Certification I certify that partial hospital treatment is medically necessary due to the symptoms and problems resulting from the patient's mental illness and the failure to treat the patient at the partial hospital level of care would likely result in the patient requiring inpatient psychiatric care which could not be prevented at a less intensive level of care. Time Spent With Patient Time: Total time managing care of this patient today _90___ minutes.
--- NOTE | 2025-03-10 14:00 | HO.PHP ---
PHP staff member faxed over a referral for OP therapy to [facility] and is awaiting on his scheduled appointment date and time.
--- NOTE | 2025-03-10 14:23 | HO.PHP ---
Clients case was opened and reviewed in teams today.
--- NOTE | 2025-03-14 10:37 | HO.PHP ---
[facility] staff member reached out to Porter Strange but his mother answered the phone where the number was dialed. Porter's mother is his emergency contact, in which she informed the clinician that the number that we dialed is her number and not Porter's. Porter was with his mother and provided his number . Porter's mother noted that Porter's program was supposed to call to inform us that he wouldn't be in attendance to program today because he is waiting on the visiting nurse to give his injection. [facility] staff member explored if this was the injection he was supposed to receive Friday. Porter's mother disclosed that it is and stated that they picked the medication up on Friday and contacted the visiting nurse who informed them that they do not have him scheduled. Porter's mother expressed that the company who was supposed to administer, lost the paperwork and it was an error on there end. Porter's mother then informed the clinician that they were supposed to come Friday and they did not show again. Porter's mother is hoping they show today for the appointment that was scheduled. [facility] staff member was receptive. Patrices mother reported no safety concerns regarding Porter and mentioned that he will be in attendance to program tomorrow. [facility] staff member was receptive.
--- NOTE | 2025-03-17 13:18 | HO.PHP ---
The patient was called by this clinician after the staff got information that he was not in the last group. Porter reported that he left and was questioned about safety concerns and he did not report any.. He indicated that everything was okay.
--- NOTE | 2025-03-17 18:35 | P.PNPSP_ITS ---
Subjective Subjective Date of Service: 03/17/25 Reason For Visit: schizophrenia Diagnostics Vital Signs (24Hr): BMI result Body Mass Index 40.7 Assessment & Plan Certification I certify that partial hospital treatment is medically necessary due to the symptoms and problems resulting from the patient's mental illness and the failure to treat the patient at the partial hospital level of care would likely result in the patient requiring inpatient psychiatric care which could not be prevented at a less intensive level of care. Total time managing care of this patient today ____ minutes. Discharge Plan Discharge Attending provider: Sachi Murphy Additional Instructions: 03/23/2025? ?11:00 AM - 12:00 PM [facility] Adult Comprehensive Assessment?in person? Prog: Outpatient Site: [address] [place] [address] Staff: Loretta Pruitt Medications: Continued Abilify Maintena 300 mg suspension,extended rel syring 300 mg IM QMONTH 28 Days Qty: 1 0RF Rx Instructions: due on 03/11/25 haloperidol 5 mg Tablet 5 mg PO BID 30 Days Qty: 60 0RF Rx Instructions: take one tablet po qhs and one tablet qd PRN agitation (blister pack) Zepbound 2.5 mg/0.5 mL pen injector 2.5 mg subcut QWEEK Qty: 2 0RF Rx Instructions: for 4 weeks rotate injection sites bisacodyl 5 mg Tablet,Delayed Release (Dr/Ec) 10 mg PO DAILY PRN (Reason: Constipation) 30 Days Qty: 60 0RF Rx Instructions: Blister pack magnesium hydroxide [Milk of Magnesia] 400 mg/5 mL Suspension 30 ml PO DAILY 30 Days Qty: 355 0RF Rx Instructions: hold for loose stool trazodone 50 mg tablet 50 mg PO BEDTIME PRN (Reason: insomnia) 30 Days Qty: 30 0RF Rx Instructions: Blister pack sumatriptan succinate 100 mg tablet 100 mg PO DAILY PRN (Reason: migraine) 30 Days Qty: 10 0RF Rx Instructions: Blister pack clonidine HCl 0.2 mg tablet 0.2 mg PO BEDTIME 30 Days Qty: 30 0RF Rx Instructions: Blister pack haloperidol 10 mg tablet 10 mg PO BID 30 Days Qty: 60 0RF Rx Instructions: Blister pack topiramate 200 mg tablet 200 mg PO BEDTIME 30 Days Qty: 30 0RF Rx Instructions: Blister pack haloperidol 10 mg tablet 10 mg PO BID PRN (Reason: agitation) 30 Days Qty: 30 0RF acetaminophen 325 mg Tablet 650 mg PO Q6H PRN (Reason: Headache/body pain/fever over 100) 30 Days Qty: 120 0RF Stand Alone Forms: Patient Portal Discharge page Print Language: Bulgarian
== END 2025-03-17 23:59 | disposition home or self-care (01) ==
LOC: HO.PHPA 10:45
PROVIDERS: Visit Provider Psychiatry & Neurology Psychiatry
DX: F20.9 Schizophrenia, unspecified (principal); Z79.899 Other long term (current) drug therapy
CPT/HCPCS: 90791; 90853